=== PATIENT | female | born 1990 | race American Indian/Alaskan Native ===

== ENCOUNTER 2016-06-29 18:01 | Emergency (ER) | payer MEDICAID ==
--- NOTE | 2016-06-29 18:55 | Emergency Department Report ---
Chief Complaint: Abdominal Pain Stated Complaint: STOMACH PAIN Time Seen by Provider: 06/29/16 18:55 - HPI History of Present Illness: 26-year-old female with a history of Crohn's presents c/o sharp, intermittent, non-radiating, abdominal pain x 2 days. Pt. states pain located to LUQ, LLQ, region .The abdominal pain has gradually worsened. Pt. rates the pain as 8/10 at its worst. The pain is not relieved with medication. Pt. admits nausea, vomiting x 3 episodes today Pt. denies fever, chills, chest pain, sob, n/v, abdominal trauma or injury, diarrhea. - ROS Review of Systems: As noted in HPI - Exam Vital Signs: Vital Signs 06/29/16 18:12 Temperature 98.2 F Pulse Rate 74 Respiratory 16 Rate Blood Pressure 124/70 O2 Sat by Pulse 100 Oximetry Physical Exam: GENERAL: Alert and oriented x3, no apparent distress, Normal Gait, atraumatic. LUNGS: Symetrical with respiration, No wheezing, no rales or crackles, CTAB. HEART: S1, S2 present, regular rate and rhythm without murmur, no rubs, no gallops. ABDOMEN: No organomegaly was noted,Positive bowel sounds, soft, and non- distended. . tender to palpation on the left upper and lower quadrant Quadrants , NO CVA tenderness. SKIN: Warm and dry, No lesions, No ulceration or induration present. MSE screening note: Focused history and physical exam performed. Due to findings the following was ordered: ED Medical Decision Making - Lab Data Result diagrams: 06/29/16 19:05 06/29/16 19:05 - Medical Decision Making Abdominal pain protocol ordered. Patient awaiting to see ED physician. ED Disposition for MSE Condition: Stable Instructions: Abdominal Pain (ED)
[2016-06-29 19:45] LABS: Alanine Aminotransferase 18 units/L (7-56); Albumin 4.2 g/dL (3.9-5); Albumin/Globulin Ratio 1.5 %; Alkaline Phosphatase 52 units/L (35-129); Anion Gap 18 mmol/L; Bilirubin,Total 0.3 mg/dL (0.1-1.2); Blood Urea Nitrogen 13 mg/dL (7-17); Calcium 9.2 mg/dL (8.4-10.2); Carbon Dioxide 23 mmol/L (22-30); Chloride 102.1 mmol/L (98-107); Glucose 79 mg/dL (65-100); Lipase 34 units/L (13-60); Sodium 139 mmol/L (137-145)
[2016-06-29 19:47] LABS: Basophils % (Auto) 0.7 % (0.0-1.8); Eosinophils % (Auto) 0.8 % (0.0-4.3); Hematocrit 36.1 % (30.3-42.9); Mean Corpuscular HGB Conc 33 % (30-34); Mean Corpuscular Hemoglobin 29 pg (28-32); Mean Corpuscular Volume 88 fl (79-97); Platelet Count 252 K/mm3 (140-440); Red Blood Count 4.12 M/mm3 (3.65-5.03); Red Cell Distribution Width 13.3 % (13.2-15.2); White Blood Count 7.6 K/mm3 (4.5-11.0)
[2016-06-30] MEDS ORDERED: DILAUDID IV ONE ×2 (01:33→05:18)
[2016-06-30] MEDS ORDERED: ZOFRAN IV ONE ×2 (01:33→05:18)
[2016-06-30 01:35] LABS: Bilirubin,Urine NEG (Negative); Blood,Urine MOD (Negative); Ketones,Urine NEG (Negative); Leukocyte Esterase,Urine NEG (Negative); Mucus,Urine FEW /HPF; Nitrite,Urine NEG (Negative); Protein,Urine <15 mg/dL mg/dL (Negative); Urobilinogen,Urine < 2.0 mg/dL (<2.0); WBC,Urine < 1.0 /HPF (0.0-6.0)
[2016-06-30 01:37] LABS: RBC,Urine < 1.0 /HPF (0.0-6.0)
[2016-06-30] MEDS ORDERED: D5NS 1,000 ML IV SCH (02:00)
[2016-06-30] MEDS ORDERED: BENADRYL IV ONE ×2 (02:10→05:18)
[2016-06-30] MEDS ORDERED: BENTYL IM ONE (03:29)
--- NOTE | 2016-06-30 03:29 | Emergency Department Report ---
ED Abdominal Pain HPI - General Chief Complaint: Abdominal Pain Stated Complaint: STOMACH PAIN Time Seen by Provider: 06/30/16 01:14 Source: family Mode of arrival: Wheelchair Limitations: No Limitations - History of Present Illness Initial Comments: 26-year-old female with a past medical history of asthma and Crohn's disease with surgical history tubal ligation presents to the hospital complaints of abdominal pain, nausea vomiting and by mouth intolerance. Patient symptoms 1 day. Patient complains of upper and left upper quadrant abdominal pain with a fist in intensity, cramping, constant, worse with palpation. No alleviating factors. Patient states she has been vomiting throughout the day and unable to tolerate anything by mouth. Patient Zofran earlier without improvement. She also has oxycodone at home. No reports of fever however, patient states she is having bloody mucus rectal output with only a mild amount of stool. Patient is not currently on any Crohn specific medication since it was discontinued by her initial GI MD Dr. Mcarthur. 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 Her first appointment is first week of July. Severity scale (0 -10): 10 - Related Data Previous Rx's Medication Instructions Recorded Last Taken Type Acetaminophen/Codeine [Tylenol #3] 1 tab PO Q6H PRN #12 tab 03/04/13 Unknown Rx Nitrofurantoin [place]/M-Cryst 100 mg PO Q12HR #14 capsule 03/04/13 Unknown Rx [Macrobid] HYDROcodone/APAP 7.5-325 [[place] 1 each PO Q8HR PRN #12 tablet 03/22/15 Unknown Rx 7.5/325] HYDROcodone/APAP 5-325 [[place] 1 each PO Q6HR PRN #14 tablet 01/25/16 Unknown Rx 5/325] metroNIDAZOLE [Flagyl] 500 mg PO Q8HR #20 tablet 01/25/16 Unknown Rx predniSONE [Deltasone] 10 mg PO QDAY #7 tab 01/25/16 Unknown Rx Dicyclomine [Bentyl] 20 mg PO QID #20 tablet 06/30/16 Unknown Rx Ondansetron [Zofran ODT TAB] 4 mg PO Q8HR #20 tab.rapdis 06/30/16 Unknown Rx oxyCODONE /ACETAMINOPHEN [Percocet 1 tab PO Q6HR PRN #20 tablet 06/30/16 Unknown Rx 5/325 mg] Allergies Allergy/AdvReac Type Severity Reaction Status Date / Time levofloxacin [From Levaquin] Allergy Rash Verified 03/22/15 15:49 morphine Allergy Rash Verified 03/22/15 15:49 ED Review of Systems ROS: Stated complaint: STOMACH PAIN Other details as noted in HPI Comment: All other systems reviewed and negative Other: Constitutional: No fevers chills Eyes: No eye pain visual changes ENT: No ear pain or throat pain Neck: Denies pain Respiratory: Denies cough wheezing shortness of breath Cardiovascular: Denies chest pain, palpitations, syncope GI: As per HPI : Denies dysuria Musculoskeletal: Denies back pain, joint swelling Skin: Denies rash, lesions, erythema Neurologic: Denies headache, numbness, weakness Psychiatric: Denies suicidal ideation, hallucinations ED Past Medical Hx - Past Medical History Hx Hypertension: No Hx Diabetes: No Hx Deep Vein Thrombosis: No Hx Renal Disease: No Hx Sickle Cell Disease: Yes Hx Seizures: No Hx Asthma: Yes (last since child [place], reports hx of bronchitis) Hx HIV: No Additional medical history: crohns - Surgical History Past Surgical History?: Yes Additional Surgical History: tubal ligation in September 2014 - Social History Smoking Status: Never Smoker Substance Use Type: None - Medications Home Medications: Home Medications Medication Instructions Recorded Confirmed Last Taken Type Acetaminophen/Codeine [Tylenol #3] 1 tab PO Q6H PRN #12 tab 03/04/13 08/07/13 Unknown Rx Nitrofurantoin [place]/M-Cryst 100 mg PO Q12HR #14 capsule 03/04/13 08/07/13 Unknown Rx [Macrobid] HYDROcodone/APAP 7.5-325 [[place] 1 each PO Q8HR PRN #12 tablet 03/22/15 Unknown Rx 7.5/325] HYDROcodone/APAP 5-325 [[place] 1 each PO Q6HR PRN #14 tablet 01/25/16 Unknown Rx 5/325] metroNIDAZOLE [Flagyl] 500 mg PO Q8HR #20 tablet 01/25/16 Unknown Rx predniSONE [Deltasone] 10 mg PO QDAY #7 tab 01/25/16 Unknown Rx Dicyclomine [Bentyl] 20 mg PO QID #20 tablet 06/30/16 Unknown Rx Ondansetron [Zofran ODT TAB] 4 mg PO Q8HR #20 tab.rapdis 06/30/16 Unknown Rx oxyCODONE /ACETAMINOPHEN [Percocet 1 tab PO Q6HR PRN #20 tablet 06/30/16 Unknown Rx 5/325 mg] ED Physical Exam - General Limitations: No Limitations - Other Other exam information: General: No limitations, patient is alert in no acute distress Head exam: Atraumatic, normocephalic Eyes exam: Normal appearance, pupils equal reactive to light, extraocular movements intact ENT: Moist mucous membrane, normal oropharynx Neck exam: Normal inspection, full range of motion, no meningismus nontender Respiratory exam: Clear to auscultation bilateral, no wheezes, rales, crackles Cardiovascular: Normal rate and rhythm, normal heart sounds Abdomen: Soft, nondistended, epigastric and left upper quadrant tenderness. No rebound or guarding Extremity: Full range of motion normal inspection no deformity Back: Normal Inspection, full range of motion, no tenderness Neurologic: Alert, oriented x3, cranial nerves intact, no motor or sensory deficit Psychiatric: normal affect, normal mood Skin: Warm, dry, intact ED Course Vital Signs 06/29/16 06/29/16 06/30/16 18:12 23:00 01:09 Temperature 98.2 F 98.2 F 98.3 F Pulse Rate 74 79 80 Respiratory 16 18 18 Rate Blood Pressure 124/70 140/87 Blood Pressure 114/83 [Right] O2 Sat by Pulse 100 100 100 Oximetry 06/30/16 02:00 Temperature Pulse Rate Respiratory 16 Rate Blood Pressure Blood Pressure [Right] O2 Sat by Pulse 100 Oximetry - Reevaluation(s) Reevaluation #1: 06/30/16 05:12 sx improved with Dilaudid, zofran, ns - Consultations Consultation #1: 06/30/16 05:12 case d/w Dr Esteban. no steroids rec at this time. Rec f/u with her gi for further management ED Medical Decision Making - Lab Data Result diagrams: 06/29/16 19:05 06/29/16 19:05 Lab Results 06/29/16 06/29/16 06/29/16 Range/Units 19:05 19:05 19:05 WBC 7.6 (4.5-11.0) K/mm3 RBC 4.12 (3.65-5.03) M/mm3 Hgb 12.0 (10.1-14.3) gm/dl Hct 36.1 (30.3-42.9) % MCV 88 (79-97) fl MCH 29 (28-32) pg MCHC 33 (30-34) % RDW 13.3 (13.2-15.2) % Plt Count 252 (140-440) K/mm3 Lymph % (Auto) 16.6 (13.4-35.0) % [place] % (Auto) 7.6 H (0.0-7.3) % Eos % (Auto) 0.8 (0.0-4.3) % Baso % (Auto) 0.7 (0.0-1.8) % Lymph # 1.3 (1.2-5.4) K/mm3 [place] # 0.6 (0.0-0.8) K/mm3 Eos # 0.1 (0.0-0.4) K/mm3 Baso # 0.1 (0.0-0.1) K/mm3 Seg Neutrophils % 74.3 H (40.0-70.0) % Seg Neutrophils # 5.7 (1.8-7.7) K/mm3 Sodium 139 (137-145) mmol/L Potassium 4.0 (3.6-5.0) mmol/L Chloride 102.1 (98-107) mmol/L Carbon Dioxide 23 (22-30) mmol/L Anion Gap 18 mmol/L BUN 13 (7-17) mg/dL Creatinine 0.5 L (0.7-1.2) mg/dL Estimated GFR > 60 ml/min BUN/Creatinine Ratio 26.00 % Glucose 79 (65-100) mg/dL Calcium 9.2 (8.4-10.2) mg/dL Total Bilirubin 0.3 (0.1-1.2) mg/dL AST 22 (5-40) units/L ALT 18 (7-56) units/L Alkaline Phosphatase 52 (35-129) units/L Total Protein 7.0 (6.3-8.2) g/dL Albumin 4.2 (3.9-5) g/dL Albumin/Globulin Ratio 1.5 % Lipase 34 (13-60) units/L HCG, Qual Negative (Negative) Urine Color (Yellow) Urine Turbidity (Clear) Urine pH (5.0-7.0) Ur Specific [place] (1.003-1.030) Urine Protein (Negative) mg/dL Urine Glucose (UA) (Negative) mg/dL Urine Ketones (Negative) mg/dL Urine Blood (Negative) Urine Nitrite (Negative) Urine Bilirubin (Negative) Urine Urobilinogen (<2.0) mg/dL Ur Leukocyte Esterase (Negative) Urine WBC (Auto) (0.0-6.0) /HPF Urine RBC (Auto) (0.0-6.0) /HPF U Epithel Cells (Auto) (0-13.0) /HPF Urine Mucus /HPF 06/30/16 Range/Units 01:13 WBC (4.5-11.0) K/mm3 RBC (3.65-5.03) M/mm3 Hgb (10.1-14.3) gm/dl Hct (30.3-42.9) % MCV (79-97) fl MCH (28-32) pg MCHC (30-34) % RDW (13.2-15.2) % Plt Count (140-440) K/mm3 Lymph % (Auto) (13.4-35.0) % [place] % (Auto) (0.0-7.3) % Eos % (Auto) (0.0-4.3) % Baso % (Auto) (0.0-1.8) % Lymph # (1.2-5.4) K/mm3 [place] # (0.0-0.8) K/mm3 Eos # (0.0-0.4) K/mm3 Baso # (0.0-0.1) K/mm3 Seg Neutrophils % (40.0-70.0) % Seg Neutrophils # (1.8-7.7) K/mm3 Sodium (137-145) mmol/L Potassium (3.6-5.0) mmol/L Chloride (98-107) mmol/L Carbon Dioxide (22-30) mmol/L Anion Gap mmol/L BUN (7-17) mg/dL Creatinine (0.7-1.2) mg/dL Estimated GFR ml/min BUN/Creatinine Ratio % Glucose (65-100) mg/dL Calcium (8.4-10.2) mg/dL Total Bilirubin (0.1-1.2) mg/dL AST (5-40) units/L ALT (7-56) units/L Alkaline Phosphatase (35-129) units/L Total Protein (6.3-8.2) g/dL Albumin (3.9-5) g/dL Albumin/Globulin Ratio % Lipase (13-60) units/L HCG, Qual (Negative) Urine Color Straw (Yellow) Urine Turbidity Clear (Clear) Urine pH 7.0 (5.0-7.0) Ur Specific [place] 1.008 (1.003-1.030) Urine Protein <15 mg/dl (Negative) mg/dL Urine Glucose (UA) Neg (Negative) mg/dL Urine Ketones Neg (Negative) mg/dL Urine Blood Mod (Negative) Urine Nitrite Neg (Negative) Urine Bilirubin Neg (Negative) Urine Urobilinogen < 2.0 (<2.0) mg/dL Ur Leukocyte Esterase Neg (Negative) Urine WBC (Auto) < 1.0 (0.0-6.0) /HPF Urine RBC (Auto) < 1.0 (0.0-6.0) /HPF U Epithel Cells (Auto) 1.0 (0-13.0) /HPF Urine Mucus Few /HPF - Medical Decision Making Patient's lab work is unremarkable symptoms appear to be secondary to acute Crohn's exacerbation. Patient treated with Dilaudid, Zofran, and IV fluids in the ED with improvement. 2nd round of meds given prior to d/c - Differential Diagnosis chronic pain, Crohn's flare, gastroenteritis, appendicitis, diverticulitis Critical Care Time: No Critical care attestation.: If time is entered above; I have spent that time in minutes in the direct care of this critically ill patient, excluding procedure time. ED Disposition Clinical Impression: Exacerbation of Crohn's disease Qualifiers: Digestive disease complication type: unspecified complication Qualified Code(s) : K50.919 - Crohn's disease, unspecified, with unspecified complications Disposition: DISCHARGED TO HOME OR SELFCARE Is pt being admited?: No Does the pt Need Aspirin: No Condition: Stable Instructions: Acute Nausea and Vomiting (ED), Abdominal Pain (ED) Additional Instructions: Take the medication as prescribed. Follow-up with your GI doctor as soon as possible. 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
[2016-06-30 07:10] VITALS: BP 118/76
== END 2016-06-30 06:30 | disposition home or self-care (01) ==
LOC: ED 18:01
DX: K50.919 Crohn's disease, unspecified, with unspecified complications (principal); J45.909 Unspecified asthma, uncomplicated; Z88.1 Allergy status to other antibiotic agents; Z88.6 Allergy status to analgesic agent
CPT/HCPCS: 36415; 80053; 81001; 83690; 84703; 85025; 96361; 96372; 96374; 96375; 96376; 99283; J0500; J1170; J1200; J2405; J7042

== ENCOUNTER 2016-08-28 00:31 | Inpatient (IN) | payer MEDICAID ==
[2016-08-28] MEDS ORDERED: NACL 0.9% 1000 ML 1,000 ML IV ONE ×2 (02:00→10:59)
[2016-08-28] MEDS ORDERED: DILAUDID IV ONE ×2 (02:04→10:58)
[2016-08-28] MEDS ORDERED: ZOFRAN IV ONE (02:04)
[2016-08-28 02:30] LABS: Basophils % (Auto) 1.3 % (0.0-1.8); Eosinophils % (Auto) 3.1 % (0.0-4.3); Hematocrit 32.7 % (30.3-42.9); Hemoglobin 10.8 gm/dl (10.1-14.3); Mean Corpuscular HGB Conc 33 % (30-34); Mean Corpuscular Hemoglobin 29 pg (28-32); Mean Corpuscular Volume 87 fl (79-97); Platelet Count 435 K/mm3 (140-440); Red Blood Count 3.78 M/mm3 (3.65-5.03); Red Cell Distribution Width 14.4 % (13.2-15.2); White Blood Count 8.3 K/mm3 (4.5-11.0)
[2016-08-28 02:53] LABS: Alanine Aminotransferase 13 units/L (7-56); Albumin 3.7 g/dL (3.9-5); Albumin/Globulin Ratio 1.3 %; Alkaline Phosphatase 70 units/L (35-129); Anion Gap 18 mmol/L; BUN/Creatinine Ratio 8.33; Bilirubin,Total 0.2 mg/dL (0.1-1.2); Blood Urea Nitrogen 5 mg/dL (7-17); Calcium 9.2 mg/dL (8.4-10.2); Carbon Dioxide 26 mmol/L (22-30); Chloride 103.2 mmol/L (98-107); Glucose 84 mg/dL (65-100); Lipase 187 units/L (13-60); Potassium 3.6 mmol/L (3.6-5.0); Sodium 144 mmol/L (137-145); Total Protein 6.5 g/dL (6.3-8.2)
[2016-08-28 03:10] LABS: INR 0.89 (0.87-1.13)
[2016-08-28 03:11] LABS: Partial Thromboplastin Time 26.3 Sec. (24.2-36.6)
[2016-08-28] MEDS ORDERED: REGLAN ONE (03:45)
[2016-08-28] MEDS ORDERED: REGLAN IV ONE (03:45)
--- NOTE | 2016-08-28 10:16 | Emergency Department Report ---
ED GI Bleed HPI - General Chief complaint: GI Bleed Stated complaint: VOMITING BLOOD/WEAK/ABD PAIN Time Seen by Provider: 08/28/16 10:13 Source: patient Mode of arrival: Ambulatory Limitations: No Limitations - History of Present Illness Initial comments: She states that she was admitted for approximately 10 days having been discharged on 08/21/2016 from [facility]. She states that at that time endoscopy confirm the presence of an esophageal carcinoma. She tells me that she was told that she had a "esophageal tumor" in May 2016. However the diagnosis was not made until her last hospitalization [facility]. She states that she has a specialized ultrasound scheduled at [facility] in about a week or 2 which must be performed prior to surgery. She has not had surgery scheduled. She has not had chemotherapy scheduled. We do not have any records of her esophageal biopsy here. She has had multiple visits to this facility for Crohn's disease. It would appear that she does have chronic pain issues. However, she presents to the emergency department today because she states she has thrown up blood 3 times since 10 PM last night. She states that she has not yet had a bowel movement. She complains of chronic subxiphoid pain. She states that she has had this for quite some time and in retrospect she now knows it is due to her esophageal carcinoma. She does not complain of fever or chills. The vomiting was bright red and not streaks. There weren't any large clots. History does imply that she did not have any coffee ground emesis per se per what she is describing. MD complaint: gross hematemesis -: hour(s) Location: epigastric (and subxiphoid and sub-xyphoidal) Radiation: none Quality: sharp Consistency: intermittent Improves with: none Worsens with: none Context: history of GI bleed (states esophageal CA) Associated Symptoms: denies other symptoms - Related Data Home Medications Medication Instructions Recorded Confirmed Last Taken Metoclopramide [Reglan] 10 mg PO TID PRN 08/28/16 08/28/16 Unknown Oxycodone HCl [Roxicodone] 10 mg PO Q6H PRN 08/28/16 08/28/16 Unknown amLODIPine [Norvasc] mg PO DAILY 08/28/16 08/27/16 azaTHIOprine 25 mg PO BID 08/28/16 08/28/16 Unknown fentaNYL [Duragesic] 75 mcg TD Q48H 08/28/16 08/28/16 08/27/16 Allergies Allergy/AdvReac Type Severity Reaction Status Date / Time levofloxacin [From Levaquin] Allergy Rash Verified 03/22/15 15:49 morphine Allergy Rash Verified 03/22/15 15:49 ED Review of Systems ROS: Stated complaint: VOMITING BLOOD/WEAK/ABD PAIN Other details as noted in HPI Constitutional: denies: chills, fever Eyes: denies: eye pain, eye discharge, vision change ENT: denies: ear pain, throat pain Respiratory: denies: cough, shortness of breath, wheezing Cardiovascular: as per HPI, chest pain. denies: palpitations Endocrine: no symptoms reported Gastrointestinal: as per HPI, abdominal pain. denies: nausea, diarrhea Genitourinary: denies: urgency, dysuria, discharge Musculoskeletal: denies: back pain, joint swelling, arthralgia Skin: denies: rash, lesions Neurological: denies: headache, weakness, paresthesias Psychiatric: denies: anxiety, depression Hematological/Lymphatic: denies: easy bleeding, easy bruising ED Past Medical Hx - Past Medical History Previous Medical History?: Yes Hx Hypertension: No Hx Diabetes: No Hx Deep Vein Thrombosis: No Hx Renal Disease: No Hx Sickle Cell Disease: Yes Hx Seizures: No Hx Asthma: Yes (last since child [place], reports hx of bronchitis) Hx HIV: No Additional medical history: crohns - Surgical History Past Surgical History?: Yes Additional Surgical History: tubal ligation in September 2014 - Social History Smoking Status: Never Smoker Substance Use Type: None - Medications Home Medications: Home Medications Medication Instructions Recorded Confirmed Last Taken Type Metoclopramide [Reglan] 10 mg PO TID PRN 08/28/16 08/28/16 Unknown History Oxycodone HCl [Roxicodone] 10 mg PO Q6H PRN 08/28/16 08/28/16 Unknown History amLODIPine [Norvasc] mg PO DAILY 08/28/16 08/27/16 History azaTHIOprine 25 mg PO BID 08/28/16 08/28/16 Unknown History fentaNYL [Duragesic] 75 mcg TD Q48H 08/28/16 08/28/16 08/27/16 History ED Physical Exam - General Limitations: No Limitations General appearance: alert, in no apparent distress - Head Head exam: Present: atraumatic, normocephalic - Eye Eye exam: Present: normal appearance. Absent: scleral icterus - ENT ENT exam: Present: normal exam, mucous membranes moist - Neck Neck exam: Present: normal inspection - Respiratory Respiratory exam: Present: normal lung sounds bilaterally. Absent: respiratory distress - Cardiovascular Cardiovascular Exam: Present: regular rate, normal rhythm. Absent: systolic murmur, diastolic murmur, rubs, gallop - GI/Abdominal GI/Abdominal exam: Present: soft, tenderness (some epigastric tenderness noted) , normal bowel sounds. Absent: distended, guarding, rebound, rigid, organomegaly, mass, bruit, pulsatile mass, hernia - Extremities Exam Extremities exam: Present: normal inspection - Back Exam Back exam: Present: normal inspection - Neurological Exam Neurological exam: Present: alert, oriented X3, CN II-XII intact. Absent: motor sensory deficit - Psychiatric Psychiatric exam: Present: normal affect, normal mood - Skin Skin exam: Present: warm, dry, intact, normal color. Absent: rash ED Course Vital Signs 08/28/16 08/28/16 08/28/16 01:16 04:00 04:30 Temperature 98.7 F Pulse Rate 92 H Respiratory 18 18 18 Rate Blood Pressure 141/95 Blood Pressure [Left] O2 Sat by Pulse 100 Oximetry 08/28/16 08/28/16 08/28/16 07:17 07:44 07:55 Temperature 98 F Pulse Rate 76 87 55 L Respiratory 18 18 13 Rate Blood Pressure 144/90 Blood Pressure 152/93 134/91 [Left] O2 Sat by Pulse 100 97 99 Oximetry 08/28/16 08/28/16 08/28/16 08:00 08:10 08:20 Temperature Pulse Rate 67 57 L 70 Respiratory 14 14 15 Rate Blood Pressure 127/94 127/94 127/94 Blood Pressure [Left] O2 Sat by Pulse 100 99 100 Oximetry 08/28/16 08/28/16 08/28/16 08:30 08:40 08:50 Temperature Pulse Rate 76 66 67 Respiratory 22 16 14 Rate Blood Pressure 127/94 127/94 127/94 Blood Pressure [Left] O2 Sat by Pulse 100 100 100 Oximetry 08/28/16 08/28/16 08/28/16 09:00 09:10 09:20 Temperature Pulse Rate 67 61 72 Respiratory 12 16 12 Rate Blood Pressure 134/87 134/87 134/87 Blood Pressure [Left] O2 Sat by Pulse 100 100 100 Oximetry 08/28/16 08/28/16 08/28/16 09:30 09:40 09:50 Temperature Pulse Rate 66 59 L 56 L Respiratory 14 13 15 Rate Blood Pressure 134/87 134/87 134/87 Blood Pressure [Left] O2 Sat by Pulse 100 99 100 Oximetry 08/28/16 08/28/16 08/28/16 10:00 10:04 10:06 Temperature Pulse Rate 62 59 L 68 Respiratory 16 16 18 Rate Blood Pressure 154/107 154/107 154/107 Blood Pressure [Left] O2 Sat by Pulse 99 97 Oximetry 08/28/16 08/28/16 08/28/16 10:08 10:10 10:12 Temperature Pulse Rate 57 L 61 59 L Respiratory 15 14 12 Rate Blood Pressure 154/107 154/107 154/107 Blood Pressure [Left] O2 Sat by Pulse 94 96 100 Oximetry 08/28/16 08/28/16 08/28/16 10:14 10:16 10:20 Temperature Pulse Rate 58 L 83 Respiratory 13 17 Rate Blood Pressure 154/107 154/107 154/107 Blood Pressure [Left] O2 Sat by Pulse 100 99 84 Oximetry 08/28/16 08/28/16 08/28/16 10:23 10:28 10:33 Temperature Pulse Rate Respiratory Rate Blood Pressure 154/107 154/107 154/107 Blood Pressure [Left] O2 Sat by Pulse 78 L Oximetry 08/28/16 08/28/16 08/28/16 10:36 10:38 10:42 Temperature Pulse Rate Respiratory Rate Blood Pressure 154/107 154/107 154/107 Blood Pressure [Left] O2 Sat by Pulse 78 L 74 L 91 Oximetry 08/28/16 08/28/16 08/28/16 10:45 10:46 10:50 Temperature Pulse Rate Respiratory Rate Blood Pressure 154/107 154/107 154/107 Blood Pressure [Left] O2 Sat by Pulse 94 100 100 Oximetry 08/28/16 08/28/16 08/28/16 10:52 10:55 11:01 Temperature Pulse Rate Respiratory Rate Blood Pressure 154/107 154/107 154/107 Blood Pressure [Left] O2 Sat by Pulse 87 73 L Oximetry 08/28/16 08/28/1617 11:02 11:05 11:07 Temperature Pulse Rate Respiratory Rate Blood Pressure 154/107 154/107 154/107 Blood Pressure [Left] O2 Sat by Pulse 100 46 L Oximetry 08/28/16 08/28/16 08/28/16 11:11 11:12 11:14 Temperature Pulse Rate Respiratory Rate Blood Pressure 154/107 154/107 154/107 Blood Pressure [Left] O2 Sat by Pulse 85 94 86 Oximetry 08/28/16 08/28/16 08/28/16 11:16 11:19 11:20 Temperature Pulse Rate Respiratory 9 L 9 L Rate Blood Pressure 154/107 145/103 145/103 Blood Pressure [Left] O2 Sat by Pulse 91 100 100 Oximetry 08/28/16 08/28/16 08/28/16 11:22 11:24 11:26 Temperature Pulse Rate 74 92 H 77 Respiratory 10 L 12 11 L Rate Blood Pressure 145/103 145/103 145/103 Blood Pressure [Left] O2 Sat by Pulse 100 100 100 Oximetry 08/28/16 12:01 Temperature Pulse Rate Respiratory 20 Rate Blood Pressure Blood Pressure [Left] O2 Sat by Pulse Oximetry ED Medical Decision Making - Lab Data Result diagrams: 08/28/16 02:13 08/28/16 02:13 Laboratory Results - last 24 hr 08/28/16 08/28/16 08/28/16 02:13 02:13 02:13 WBC 8.3 RBC 3.78 Hgb 10.8 Hct 32.7 MCV 87 MCH 29 MCHC 33 RDW 14.4 Plt Count 435 Lymph % (Auto) 28.3 [place] % (Auto) 10.0 H Eos % (Auto) 3.1 Baso % (Auto) 1.3 Lymph # 2.4 [place] # 0.8 Eos # 0.3 Baso # 0.1 Seg Neutrophils % 57.3 Seg Neutrophils # 4.8 PT 11.9 L INR 0.89 APTT 26.3 Sodium 144 Potassium 3.6 Chloride 103.2 Carbon Dioxide 26 Anion Gap 18 BUN 5 L Creatinine 0.6 L Estimated GFR > 60 BUN/Creatinine Ratio 8.33 Glucose 84 Calcium 9.2 Total Bilirubin 0.2 AST 16 ALT 13 Alkaline Phosphatase 70 Total Protein 6.5 Albumin 3.7 L Albumin/Globulin Ratio 1.3 Lipase 187 H Blood Type Antibody Screen 08/28/16 02:13 WBC RBC Hgb Hct MCV MCH MCHC RDW Plt Count Lymph % (Auto) [place] % (Auto) Eos % (Auto) Baso % (Auto) Lymph # [place] # Eos # Baso # Seg Neutrophils % Seg Neutrophils # PT INR APTT Sodium Potassium Chloride Carbon Dioxide Anion Gap BUN Creatinine Estimated GFR BUN/Creatinine Ratio Glucose Calcium Total Bilirubin AST ALT Alkaline Phosphatase Total Protein Albumin Albumin/Globulin Ratio Lipase Blood Type A POSITIVE Antibody Screen Negative - EKG Data -: EKG Interpreted by Me EKG shows normal: sinus rhythm, axis, intervals, QRS complexes, ST-T waves Rate: normal - EKG Data Interpretation: no acute changes - Radiology Data Radiology results: report reviewed interpreted by me: Chest x-ray shows no acute process. - Medical Decision Making Obviously review the patient's past medical records from outside facility would be of benefit. She is admitted by Dr. Martinez to the hospitalist service for her history of hematemesis 3 since last night. She has however clinically stable. Critical care attestation.: If time is entered above; I have spent that time in minutes in the direct care of this critically ill patient, excluding procedure time. ED Disposition Clinical Impression: Upper GI bleeding Abdominal pain Qualifiers: Abdominal location: unspecified location Qualified Code(s): R10.9 - Unspecified abdominal pain Disposition: OP ADMITTED IP TO THIS HOSP Is pt being admited?: Yes Does the pt Need Aspirin: No Condition: Stable Referrals: PRIMARY CARE, [Primary Care Provider] - 3-5 Days Forms: Accompanied Note Time of Disposition: 13:54
[2016-08-28] MEDS ORDERED: BENADRYL IV ONE (10:59)
[2016-08-28] MEDS ORDERED: PROTONIX IV ONE (10:59)
--- NOTE | 2016-08-28 11:55 | XRay Report ---
AP CHEST: HISTORY: Hypertension AP view of the chest demonstrates a normal mediastinal and cardiac contour with clear lungs and normal bony and soft tissue structures. IMPRESSION: Unremarkable AP chest.
--- NOTE | 2016-08-28 12:40 | History and Physical Report ---
History of Present Illness Date of examination: 08/28/16 Chief complaint: It hurts when i swallow, and i been coughing up blood History of present illness: 26 YO Female with SSC, Crohns Disease, Esophageal Carcinoma diagnosed in 2016, presents to ED for evaluation. Pt states that she has experienced pain with swallowing for the past 10 days, and that she has had four episodes of hematemesis over the past 2 days. Pt denies fever, chills, CP, palpitations, shortness of breath, NVD, syncope, BRBPR. Pt states that she has had these symptoms for quite some time and in retrospect she now knows it is due to her esophageal carcinoma. Pt denies unintentional weight loss, night sweats, bone pain, prolonged travel/immobility, individual/family history of DVT/PE, productive cough, syncope. Past History Past Medical History: cancer Past Surgical History: Other (tubal ligation) Social history: single, lives with family. denies: smoking, alcohol abuse, prescription drug abuse Family history: hypertension Medications and Allergies Allergies Allergy/AdvReac Type Severity Reaction Status Date / Time levofloxacin [From Levaquin] Allergy Rash Verified 03/22/15 15:49 morphine Allergy Rash Verified 03/22/15 15:49 Home Medications Medication Instructions Recorded Confirmed Last Taken Type Metoclopramide [Reglan] 10 mg PO TID PRN 08/28/16 08/28/16 Unknown History Oxycodone HCl [Roxicodone] 10 mg PO Q6H PRN 08/28/16 08/28/16 Unknown History amLODIPine [Norvasc] mg PO DAILY 08/28/16 08/27/16 History azaTHIOprine 25 mg PO BID 08/28/16 08/28/16 Unknown History fentaNYL [Duragesic] 75 mcg TD Q48H 08/28/16 08/28/16 08/27/16 History Active Meds: Active Medications Sodium Chloride (Nacl 0.9% 1000 Ml) 1,000 mls @ 125 mls/hr IV ONCE ONE Stop: 08/28/16 18:58 Last Admin: 08/28/16 11:31 Dose: 125 mls/hr Review of Systems All systems: negative Gastrointestinal: hematemesis Exam - Constitutional Vitals: Temp Pulse Resp BP Pulse Ox 98 F 77 11 L 145/103 100 08/28/16 07:17 08/28/16 11:26 08/28/16 11:26 08/28/16 11:26 08/28/16 11:26 General appearance: Present: cachectic - EENT Eyes: Present: PERRL ENT: hearing intact, clear oral mucosa - Neck Neck: Present: supple, normal ROM - Respiratory Respiratory effort: normal Respiratory: bilateral: CTA - Cardiovascular Heart Sounds: Present: S1 & S2. Absent: rub, click - Extremities Extremities: pulses symmetrical, No edema Peripheral Pulses: within normal limits - Abdominal General gastrointestinal: Present: soft, non-tender, non-distended, normal bowel sounds Female genitourinary: Present: normal - Integumentary Integumentary: Present: clear, warm, dry - Musculoskeletal Musculoskeletal: gait normal, strength equal bilaterally - Psychiatric Psychiatric: appropriate mood/affect, intact judgment & insight - Neurologic Neurologic: CNII-XII intact, moves all extremities Results - Labs CBC & Chem 7: 08/28/16 02:13 08/28/16 02:13 Labs: Abnormal lab results 08/28/16 08/28/16 08/28/16 Range/Units 02:13 02:13 02:13 [place] % (Auto) 10.0 H (0.0-7.3) % PT 11.9 L (12.2-14.9) Sec. BUN 5 L (7-17) mg/dL Creatinine 0.6 L (0.7-1.2) mg/dL Albumin 3.7 L (3.9-5) g/dL Lipase 187 H (13-60) units/L Assessment and Plan - Patient Problems (1) Esophageal cancer Current Visit: Yes Status: Acute Qualifiers: Malignant neoplasm of esophagus location: M Plan to address problem: Pain control, records request from [facility]. Request GI notes, HPI, and discharge summary, ultrasound and biopsy results. supportive care. (2) Malnutrition Current Visit: Yes Status: Acute Plan to address problem: encourage oral intake as tolerated. (3) Crohn's disease Current Visit: Yes Status: Acute Qualifiers: Gastrointestinal tract location: G Digestive disease complication type: D Plan to address problem: Pain control, supportiev care, continue home therapy (4) Upper GI bleeding Current Visit: Yes Status: Acute Plan to address problem: Hgb stable, pt had recent GI workup at [facility], pending records request. Pain control, Patient pending surgical resection at [facility]. PPI therapy for GI prophylaxis. No free air in chest, no crepitus. No evidence of esophageal perforation. (5) DVT prophylaxis Current Visit: Yes Status: Acute
--- NOTE | 2016-08-28 13:10 | Admit Criteria Form ---
Admission Criteria Documentation: GASTROINTESTINAL BLEEDING, UPPER Clinical Indications for Admission to Inpatient Care ( Place 'X' for any and all applicable criteria): Admission is indicated for ANY ONE of the following(1)(2)(3)(4)(5)(6): [ ]I. Active bleeding (eg, fresh voluminous blood in emesis or nasogastric aspirate) [X]II. Associated conditions requiring hospitalization (eg, perforation, obstruction from ulcer) [ ]III. Inpatient admission required rather than observation care (Also use Gastrointestinal Bleeding, Upper: Observation Care as appropriate) because of ANY ONE of the following: [ ]a) Hemodynamic instability that is severe or persistent [ ]b) Anemia requiring inpatient admission as indicated by ALL of the following: [ ]1) Presence of significant clinical finding indicated by ANY ONE of the following: [ ]A. Tachycardia for age [ ]B. Orthostatic vital sign changes [ ]C. Cognitive impairment [ ]D. Heart failure [ ]E. Chest pain [ ]F. Exertional dyspnea [ ]G. Other findings suggesting inadequate perfusion (eg, peripheral or myocardial ischemia, end organ dysfunction) [ ]2) Initial (eg, emergency department, observation care) treatment with transfusion or volume replacement is judged inappropriate (due to severity of the finding) or has been ineffective [ ]c) Severe pain requiring acute inpatient management [ ]d) High-risk low platelet count [ ]e) IV fluid to replace significant ongoing losses (greater than 3 L/m2 per day) [ ]f) Immediate inpatient surgery [ ]g) Other condition, treatment or monitoring requiring inpatient admission [ ]IV. Severe liver disease (eg, cirrhosis) [ ]V. Significant active comorbid disease [ ]. Anticoagulation therapy [ ]VII. High-risk endoscopic features (arterial bleeding, adherent clot, nonbleeding visible vessel, varices, flat red spots, ulcer size greater than 2 cm, or portal hypertensive gastropathy) [ ]VIII. Previous aortic graft placement or known aortic aneurysm [ ]IX. Coagulopathy [ ]X. Syncope Extended stay beyond goal length of stay may be needed for(1)(2): [ ]a) Emergency surgery [ ]b) Varices [ ]c) Coagulation abnormalities [ ]d) Recurrent, obscure, or persistent bleeding or continued Hemodynamic instability [ ]e) Associated conditions requiring surgery (eg, perforated gastric ulcer, gastric outlet obstruction) [ ]f) Active comorbidities (eg, renal insufficiency, heart failure, pre- existing liver disease) The original [facility] content created by [facility] has been revised. The portions of the content which have been revised are identified through the use of italic text or in bold, and [facility] has neither reviewed nor approved the modified material. All other unmodified content is copyright [facility] [employer]. Please see references footnoted in the original [facility] edition 2016 Admission Criteria Met: Yes
[2016-08-28] MEDS ORDERED: ZOFRAN IV PRN (13:18)
[2016-08-28] MEDS ORDERED: ROXICODONE PO PRN (13:22)
[2016-08-28] MEDS ORDERED: REGLAN PO PRN (13:22)
[2016-08-28] MEDS ORDERED: NACL 0.45% 1000 ML 1,000 ML IV SCH (14:00)
[2016-08-28] MEDS ORDERED: DURAGESIC TD SCH ×2 (14:00)
[2016-08-28 14:18] VITALS: BP 133/93
[2016-08-28] MEDS ORDERED: IMURAN PO SCH (22:00)
[2016-08-29] MEDS ORDERED: NORVASC PO SCH (10:00)
== END 2016-08-28 17:20 | disposition left against medical advice (07) | DRG 378 ==
LOC: ED 00:31 → 3A 13:18
PROVIDERS: ADMIT Internal Medicine; ATTEND Internal Medicine
DX: K92.2 Gastrointestinal hemorrhage, unspecified (principal); C15.9 Malignant neoplasm of esophagus, unspecified; K50.90 Crohn's disease, unspecified, without complications; E46 Unspecified protein-calorie malnutrition; G89.29 Other chronic pain; J45.909 Unspecified asthma, uncomplicated; Z79.899 Other long term (current) drug therapy; Z88.6 Allergy status to analgesic agent; Z82.49 Family history of ischemic heart disease and other diseases of the circulatory system; Z88.1 Allergy status to other antibiotic agents; Z98.51 Tubal ligation status; Z68.20 Body mass index [BMI] 20.0-20.9, adult
CPT/HCPCS: 36415; 71010; 80053; 83690; 85025; 85610; 85730; 86850; 86900; 86901; 93005; 93010; 96361; 96374; 96375; 96376; C9113; J1170; J1200; J2405; J2765; J7030; J7500

== ENCOUNTER 2016-11-13 14:28 | Inpatient (IN) | payer MEDICAID ==
[2016-11-13] MEDS ORDERED: NACL 0.9% 1000 ML 1,000 ML IV ONE (15:23)
[2016-11-13 15:59] LABS: Eosinophils % (Auto) 3.9 % (0.0-4.3); Hematocrit 36.3 % (30.3-42.9); Hemoglobin 11.7 gm/dl (10.1-14.3); Mean Corpuscular HGB Conc 32 % (30-34); Mean Corpuscular Hemoglobin 28 pg (28-32); Mean Corpuscular Volume 87 fl (79-97); Platelet Count 211 K/mm3 (140-440); Red Blood Count 4.15 M/mm3 (3.65-5.03); Red Cell Distribution Width 13.2 % (13.2-15.2); White Blood Count 4.9 K/mm3 (4.5-11.0)
[2016-11-13 16:10] LABS: INR 0.97 (0.87-1.13)
[2016-11-13 16:14] LABS: Alanine Aminotransferase 12 units/L (7-56); Albumin 4.4 g/dL (3.9-5); Albumin/Globulin Ratio 1.6 %; Alkaline Phosphatase 71 units/L (35-129); Anion Gap 15 mmol/L; BUN/Creatinine Ratio 21.66; Blood Urea Nitrogen 13 mg/dL (7-17); Carbon Dioxide 27 mmol/L (22-30); Chloride 103.1 mmol/L (98-107); Glucose 67 mg/dL (65-100); Lipase 51 units/L (13-60); Sodium 141 mmol/L (137-145); Total Protein 7.2 g/dL (6.3-8.2)
[2016-11-13] MEDS ORDERED: ZOFRAN IV ONE (23:06)
[2016-11-14] MEDS ORDERED: NACL 0.9% 1000 ML 1,000 ML IV ONE (00:06)
[2016-11-14] MEDS ORDERED: DILAUDID IV ONE (00:06)
--- NOTE | 2016-11-14 00:15 | Emergency Department Report ---
ED GI Bleed HPI - General Chief complaint: GI Bleed Stated complaint: VOMITING BLOOD/ABD PAIN/CANCER PT Time Seen by Provider: 11/13/16 23:33 Source: patient Mode of arrival: Ambulatory Limitations: No Limitations - History of Present Illness Initial comments: 26-year-old female presents to the emergency department complaining of coughing up and vomiting blood. Patient states that she began coughing up blood yesterday morning at approximately 10 AM. She began vomiting blood last night at approximately 11 PM. She states she is continuing to spit up some blood. Blood described as dark red. She is also complaining of sharp epigastric abdominal pain. This pain does not radiate. She reports feeling lightheaded, but has not passed out. Patient reports a history of esophageal cancer, and she is currently awaiting surgery for removal of the tumor. She is followed by Dr. Cason, oncology, at [facility]. There are no other complaints. MD complaint: gross hematemesis -: Gradual, days(s) (1) Location: epigastric Radiation: none Severity scale (0 -10): 9 Quality: sharp Consistency: constant Improves with: none Worsens with: none Context: history of GI bleed Associated Symptoms: abdominal pain, nausea, vomiting, other (lightheadedness) - Related Data Home Medications Medication Instructions Recorded Confirmed Last Taken Metoclopramide [Reglan] 10 mg PO TID PRN 08/28/16 08/28/16 Unknown Oxycodone HCl [Roxicodone] 10 mg PO Q6H PRN 08/28/16 08/28/16 Unknown amLODIPine [Norvasc] mg PO DAILY 08/28/16 08/27/16 azaTHIOprine 25 mg PO BID 08/28/16 08/28/16 Unknown fentaNYL [Duragesic] 75 mcg TD Q48H 08/28/16 08/28/16 08/27/16 Allergies Allergy/AdvReac Type Severity Reaction Status Date / Time levofloxacin [From Levaquin] Allergy Rash Verified 03/22/15 15:49 morphine Allergy Rash Verified 03/22/15 15:49 ED Review of Systems ROS: Stated complaint: VOMITING BLOOD/ABD PAIN/CANCER PT Other details as noted in HPI Comment: All other systems reviewed and negative Cardiovascular: syncope (lightheadedness, no loss of consciousness) Gastrointestinal: abdominal pain, nausea, vomiting, diarrhea (watery, no blood) , hematemesis ED Past Medical Hx - Past Medical History Previous Medical History?: Yes Hx Hypertension: No Hx Diabetes: No Hx Deep Vein Thrombosis: No Hx Renal Disease: No Hx of Cancer: Yes (esophageal) Hx Sickle Cell Disease: Yes Hx Seizures: No Hx Asthma: Yes (last since child [place], reports hx of bronchitis) Hx HIV: No Additional medical history: crohns - Surgical History Past Surgical History?: Yes Additional Surgical History: tubal ligation in September 2014 - Family History Family history: no significant - Social History Smoking Status: Former Smoker Substance Use Type: Non Opiate Pain, Prescribed - Medications Home Medications: Home Medications Medication Instructions Recorded Confirmed Last Taken Type Metoclopramide [Reglan] 10 mg PO TID PRN 08/28/16 08/28/16 Unknown History Oxycodone HCl [Roxicodone] 10 mg PO Q6H PRN 08/28/16 08/28/16 Unknown History amLODIPine [Norvasc] mg PO DAILY 08/28/16 08/27/16 History azaTHIOprine 25 mg PO BID 08/28/16 08/28/16 Unknown History fentaNYL [Duragesic] 75 mcg TD Q48H 08/28/16 08/28/16 08/27/16 History ED Physical Exam - General Limitations: No Limitations General appearance: alert, in no apparent distress - Head Head exam: Present: atraumatic, normocephalic - Eye Eye exam: Present: normal appearance, PERRL, EOMI - ENT ENT exam: Present: normal exam, normal orophraynx, mucous membranes moist - Neck Neck exam: Present: normal inspection, full ROM. Absent: tenderness - Respiratory Respiratory exam: Present: normal lung sounds bilaterally. Absent: respiratory distress - Cardiovascular Cardiovascular Exam: Present: regular rate, normal rhythm, normal heart sounds - GI/Abdominal GI/Abdominal exam: Present: soft, tenderness (moderate epigastric tenderness to palpation), guarding (voluntary), normal bowel sounds. Absent: distended, rebound - Extremities Exam Extremities exam: Present: normal inspection, full ROM. Absent: tenderness - Back Exam Back exam: Present: normal inspection, full ROM. Absent: tenderness - Neurological Exam Neurological exam: Present: alert, oriented X3. Absent: motor sensory deficit - Skin Skin exam: Present: warm, dry, intact ED Course Vital Signs 11/13/16 11/13/1611/13/17 15:15 22:17 22:20 Temperature 99.1 F Pulse Rate 71 72 63 Respiratory 20 10 L Rate Blood Pressure 117/74 117/84 O2 Sat by Pulse 100 Oximetry 11/13/16 22:30 Temperature Pulse Rate 61 Respiratory 14 Rate Blood Pressure 117/84 O2 Sat by Pulse Oximetry ED Medical Decision Making - Lab Data Result diagrams: 11/13/16 15:34 11/13/16 15:34 - Radiology Data Radiology results: image reviewed interpreted by me: Chest x-ray shows no acute cardiopulmonary abnormality. There is no air under the diaphragms. There is also no pleural effusions suggestive of esophageal rupture. - Medical Decision Making Lab and imaging results reviewed and discussed with the patient. Attempts have been unsuccessful to contact the patient's oncologist. Transferred to [facility] where her oncologist is located has been offered to the patient, but she states she would rather stay here. Patient was discussed with the hospitalist who is requesting GI consultation. I spoke with Dr. Beckford, GI, who states he will see the patient in the hospital. Obtaining CT of the chest with IV contrast to help evaluate the patient's anatomy. Patient will be admitted following CT scan. - Differential Diagnosis GI bleed, anemia, esophageal cancer Critical care attestation.: If time is entered above; I have spent that time in minutes in the direct care of this critically ill patient, excluding procedure time. ED Disposition Clinical Impression: Hematemesis with nausea Esophageal cancer Qualifiers: Malignant neoplasm of esophagus location: unspecified location Qualified Code(s ): C15.9 - Malignant neoplasm of esophagus, unspecified Disposition: OP ADMIT IP TO THIS HOSP Is pt being admited?: Yes Condition: Stable Referrals: PRIMARY CARE, [Primary Care Provider] - 3-5 Days Forms: Accompanied Note Time of Disposition: 01:38
[2016-11-14] MEDS ORDERED: BENADRYL IV ONE (00:20)
[2016-11-14] MEDS ORDERED: REGLAN ONE ×2 (00:43→05:04)
[2016-11-14] MEDS ORDERED: REGLAN IV ONE (00:44)
[2016-11-14] MEDS ORDERED: DILAUDID IV PRN (01:22)
[2016-11-14] MEDS ORDERED: NACL ONE (02:23)
--- NOTE | 2016-11-14 03:15 | Cat Scan Report ---
FINAL REPORT PROCEDURE: CT CHEST W CON TECHNIQUE: Computerized axial tomography of the chest was performed during the IV injection of iodinated nonionic contrast. HISTORY: vomiting blood, h/o esophageal cancer COMPARISON: No prior studies are available for comparison. TECHNICAL QUALITY: Satisfactory. FINDINGS: Heart and pericardium: Normal. Thoracic aorta: Normal. Pulmonary vasculature: Normal. Lymph nodes: No enlarged thoracic lymph nodes. Lungs: The lungs are clear. The airway is patent.. Pleural space: No effusion, thickening, or pneumothorax. Musculoskeletal structures: No significant abnormality. Upper abdominal structures: The stomach has a normal appearance. The esophagus on this study appears normal.. IMPRESSION: Normal examination
[2016-11-14] MEDS ORDERED: PROTONIX IV ONE ×2 (04:36→04:59)
--- NOTE | 2016-11-14 04:41 | History and Physical Report ---
History of Present Illness Date of examination: 11/14/16 History of present illness: 26-year-old woman with a history of esophageal cancer on azathioprine, Crohn's disease comes emergency room with complaints of 2 days of nausea vomiting. She has been unable tolerate oral intake, she started spitting up blood yesterday and today she had began to vomit blood. No fever, chills, night sweats. She complains of pain in the epigastric area which she describes a sharp pain, constant 2 days, intensity 7/10, no radiation, worse with vomiting Patient denies chest pain, palpitation, shortness of breath, cough, abdominal pain, hematochezia, dysuria, frequency, focal weakness, dysarthria, fever chills , polydipsia polyuria, hot or cold intolerance, easy bruisability, or rash or bleeding from mucosal membrane, rhinorrhea, epistaxis, earache, tinnitus, blurry vision, eye discharge, anxiety, depression. Other review of systems negative PAST SURGICAL HISTORY: Tubal ligation, tonsillectomy SOCIAL HISTORY: Denies alcohol, tobacco, drugs FAMILY HISTORY: Hypertension Medications and Allergies Allergies Allergy/AdvReac Type Severity Reaction Status Date / Time levofloxacin [From Levaquin] Allergy Rash Verified 03/22/15 15:49 morphine Allergy Rash Verified 03/22/15 15:49 ondansetron HCl Allergy Hives Verified 11/14/16 19:45 [From Zofran (as hydrochloride)] Home Medications Medication Instructions Recorded Confirmed Last Taken Type azaTHIOprine 25 mg PO BID 08/28/16 08/28/16 Unknown History Metoclopramide [Reglan TAB] 10 mg PO TID PRN #90 tablet 11/15/16 Unknown Rx Oxycodone HCl [Roxicodone] 10 mg PO Q6H PRN #10 tablet 11/15/16 Unknown Rx Pantoprazole [Protonix] 40 mg PO QDAY #30 tablet 11/15/16 Unknown Rx amLODIPine [Norvasc] 10 mg PO DAILY #30 tablet 11/15/16 Unknown Rx fentaNYL [Duragesic] 75 mcg TD Q48H #2 patch 11/15/16 Unknown Rx Active Meds: Active Medications Hydromorphone HCl (Dilaudid) 1 mg IV Q2H PRN PRN Reason: Pain , Severe (7-10) Last Admin: 11/14/16 02:30 Dose: 1 mg Hydromorphone HCl (Dilaudid) 1 mg IV Q4H PRN PRN Reason: Pain, Moderate (4-6) Sodium Chloride (Nacl 0.9% 1000 Ml) 1,000 mls @ 150 mls/hr IV DIRECT KB Metoclopramide HCl (Reglan) 10 mg IV Q6H PRN PRN Reason: Nausea And Vomiting Ondansetron HCl (Zofran) 4 mg IV Q4H PRN PRN Reason: N/V unrelieved by Reglan Pantoprazole Sodium (Protonix) 40 mg IV BID KB Pantoprazole Sodium (Protonix) 40 mg IV ONCE ONE Stop: 11/14/16 04:37 Exam - Physical Exam Narrative exam: Gen. appearance: Patient lying in bed, no apparent distress HEENT: Normocephalic, atraumatic, pupils equally round and reactive to light, extraocular movement intact, and no sclericterus,. No JVD or thyromegaly or nodule,neck supple, no carotid bruit ,mucous membranes dry, no exudate or erythema Heart: S1, S2, regular rate and rhythm Lungs: Clear to auscultation bilaterally, breathing comfortable Abdomen: Positive bowel sounds, nontender, nondistended, no organomegaly Extremity: No edema, cyanosis, clubbing Skin: No rash, nodules, warm, dry Neuro: Oriented 3, cranial nerves II-12 intact, speech is fluent, motor and sensory intact - Constitutional Vitals: Temp Pulse Resp BP Pulse Ox 99.1 F 51 L 18 112/70 100 11/13/16 15:15 11/14/16 01:50 11/14/16 02:30 11/14/16 01:50 11/14/16 01:50 Results - Labs CBC & Chem 7: 11/15/16 07:33 11/15/16 07:33 Labs: Abnormal lab results 11/13/16 11/13/16 Range/Units 15:34 15:34 Lymph % (Auto) 36.6 H (13.4-35.0) % [place] % (Auto) 9.3 H (0.0-7.3) % Creatinine 0.6 L (0.7-1.2) mg/dL - Imaging and Cardiology CT scan - chest: report reviewed Assessment and Plan GI bleed Esophageal cancer Crohn's disease Admits medicine Start IV fluids, Protonix, first dose now, consult GI Check serial hemoglobin, start antiemetics, IV pain medication DVT prophylaxis with SCD
[2016-11-14] MEDS ORDERED: NACL 0.9% 1000 ML 1,000 ML IV SCH (05:00)
[2016-11-14] MEDS ORDERED: DILAUDID ONE (05:04)
[2016-11-14] MEDS: REGLAN IV PRN (05:08)
[2016-11-14] MEDS: DILAUDID IV PRN ×5 (05:08→21:35)
[2016-11-14 05:16] LABS: Hemoglobin 10.4 gm/dl (10.1-14.3)
--- NOTE | 2016-11-14 07:25 | XRay Report ---
AP CHEST: HISTORY: Chest pain, esophageal cancer AP view of the chest demonstrates a normal mediastinal and cardiac contour with clear lungs and normal bony and soft tissue structures. IMPRESSION: Unremarkable AP chest. No significant change since 08/28/16.
--- NOTE | 2016-11-14 08:39 | Admit Criteria Form ---
Admission Criteria Documentation: GASTROINTESTINAL BLEEDING, UPPER Clinical Indications for Admission to Inpatient Care ( Place 'X' for any and all applicable criteria): Admission is indicated for ANY ONE of the following(1)(2)(3)(4)(5)(6): [ X]I. Active bleeding (eg, fresh voluminous blood in emesis or nasogastric aspirate) [ ]II. Associated conditions requiring hospitalization (eg, perforation, obstruction from ulcer) [ ]III. Inpatient admission required rather than observation care (Also use Gastrointestinal Bleeding, Upper: Observation Care as appropriate) because of ANY ONE of the following: [ ]a) Hemodynamic instability that is severe or persistent [ ]b) Anemia requiring inpatient admission as indicated by ALL of the following: [ ]1) Presence of significant clinical finding indicated by ANY ONE of the following: [ ]A. Tachycardia for age [ ]B. Orthostatic vital sign changes [ ]C. Cognitive impairment [ ]D. Heart failure [ ]E. Chest pain [ ]F. Exertional dyspnea [ ]G. Other findings suggesting inadequate perfusion (eg, peripheral or myocardial ischemia, end organ dysfunction) [ ]2) Initial (eg, emergency department, observation care) treatment with transfusion or volume replacement is judged inappropriate (due to severity of the finding) or has been ineffective [ ]c) Severe pain requiring acute inpatient management [ ]d) High-risk low platelet count [ ]e) IV fluid to replace significant ongoing losses (greater than 3 L/m2 per day) [ ]f) Immediate inpatient surgery [ ]g) Other condition, treatment or monitoring requiring inpatient admission [ ]IV. Severe liver disease (eg, cirrhosis) [ ]V. Significant active comorbid disease [ ]. Anticoagulation therapy [ ]VII. High-risk endoscopic features (arterial bleeding, adherent clot, nonbleeding visible vessel, varices, flat red spots, ulcer size greater than 2 cm, or portal hypertensive gastropathy) [ ]VIII. Previous aortic graft placement or known aortic aneurysm [ ]IX. Coagulopathy [ ]X. Syncope Extended stay beyond goal length of stay may be needed for(1)(2): [ ]a) Emergency surgery [ ]b) Varices [ ]c) Coagulation abnormalities [ ]d) Recurrent, obscure, or persistent bleeding or continued Hemodynamic instability [ ]e) Associated conditions requiring surgery (eg, perforated gastric ulcer, gastric outlet obstruction) [ ]f) Active comorbidities (eg, renal insufficiency, heart failure, pre- existing liver disease) The original [facility] [employer] content created by [facility] has been revised. The portions of the content which have been revised are identified through the use of italic text or in bold, and [facility] has neither reviewed nor approved the modified material. All other unmodified content is copyright [facility] [employer]. Please see references footnoted in the original [facility] [employer] edition 2016 Admission Criteria Met: Yes
[2016-11-14 08:44] LABS: Hematocrit 30.4 % (30.3-42.9); Hemoglobin 10.1 gm/dl (10.1-14.3)
[2016-11-14] MEDS: ZOFRAN IV PRN ×4 (08:57→21:33)
[2016-11-14] MEDS: PROTONIX IV SCH ×2 (09:14→21:33)
--- NOTE | 2016-11-14 09:24 | Gastroenterology Consultation ---
History of Present Illness - Reason for Consult Consult date: 11/14/16 hematemesis Requesting physician: BINDU MOE - History of Present Illness Patient is a 26 y/o female admitted yesterday for hematemesis. She reports N/V began 2 days ago and following multiple episodes of vomiting began to vomit up bright red blood. Her last episode of hematemesis was at 0700 this morning. She also c/o epigastric pain and occasional dizziness. She has a hx of Crohn's disease with frequent diarrhea, but denies hematochezia. She was also dx with esophageal CA 05/2016, no surgery or chemo has been done at this time. She is currently on azathoprine. Denies fever, chills, dysphagia, odynophagia, melena, hematochezia, CP, or SOB. No NSAID use. Past History Past Medical History: cancer (esophageal), hypertension, other (RA, sickle cell disease, crohn's, asthma) Past Surgical History: tonsillectomy, Other (tubal ligation) Social history: , lives with family. denies: smoking, alcohol abuse Family history: hypertension Medications and Allergies Allergies Allergy/AdvReac Type Severity Reaction Status Date / Time levofloxacin [From Levaquin] Allergy Rash Verified 03/22/15 15:49 morphine Allergy Rash Verified 03/22/15 15:49 Home Medications Medication Instructions Recorded Confirmed Last Taken Type Metoclopramide [Reglan] 10 mg PO TID PRN 08/28/16 08/28/16 Unknown History Oxycodone HCl [Roxicodone] 10 mg PO Q6H PRN 08/28/16 08/28/16 Unknown History amLODIPine [Norvasc] mg PO DAILY 08/28/16 08/27/16 History azaTHIOprine 25 mg PO BID 08/28/16 08/28/16 Unknown History fentaNYL [Duragesic] 75 mcg TD Q48H 08/28/16 08/28/16 08/27/16 History Active Meds: Active Medications Hydromorphone HCl (Dilaudid) 1 mg IV Q4H PRN PRN Reason: Pain, Moderate (4-6) Last Admin: 11/14/16 08:57 Dose: 1 mg Sodium Chloride (Nacl 0.9% 1000 Ml) 1,000 mls @ 150 mls/hr IV DIRECT KB Last Admin: 11/14/16 09:09 Dose: 150 mls/hr Metoclopramide HCl (Reglan) 10 mg IV Q6H PRN PRN Reason: Nausea And Vomiting Last Admin: 11/14/16 05:08 Dose: 10 mg Ondansetron HCl (Zofran) 4 mg IV Q4H PRN PRN Reason: N/V unrelieved by Reglan Last Admin: 11/14/16 08:57 Dose: 4 mg Pantoprazole Sodium (Protonix) 40 mg IV BID [facility] Last Admin: 11/14/16 09:14 Dose: 40 mg Review of Systems - Review of Systems All systems: negative Gastrointestinal: abdominal pain (epigastric), nausea, vomiting, hematemesis Exam - Constitutional Vital Signs: Temp Pulse Resp BP Pulse Ox 98 F 49 L 18 99/69 100 11/14/16 08:00 11/14/16 08:00 11/14/16 08:00 11/14/16 08:00 11/14/16 08:00 General appearance: mild distress - EENT Eyes: PERRL, EOM intact ENT: hearing intact - Neck Neck: normal ROM - Respiratory Respiratory: bilateral: CTA - Cardiovascular Rhythm: regular Heart Sounds: Present: S1 & S2 Extremities: No edema - Gastrointestinal General gastrointestinal: Present: soft, tender (epigastric), non-distended, normal bowel sounds - Integumentary Integumentary: Present: warm, dry - Neurologic Neurological: alert and oriented x3 - Psychiatric Psychiatric: appropriate mood/affect, cooperative - Labs CBC & Chem 7: 11/14/16 08:22 11/13/16 15:34 Lab Results: Laboratory Results - last 24 hr 11/14/16 11/14/16 04:51 08:22 Hgb 10.4 10.1 Hct 32.0 30.4 Assessment and Plan 1. hematemesis -most likely due to lani singh tear after multiple episodes of vomiting -hx of esophageal CA -CT of chest- results unremarkable -HGB 10.1- continue to monitor and transfuse as needed -continue PPI -hold blood thinning medications -continue supportive care -Keep NPO -Will schedule for EGD today -will follow
--- NOTE | 2016-11-14 12:11 | Progress Note ---
Assessment and Plan Assessment and plan: Hematemesis. Etiology is likely secondary to Barbara-Kohli tear after multiple episodes of vomiting. Continue PPI. Esophageal cancer. CT scan results of the chest essentially unremarkable. EGD planned for an a.m. Crohn's disease. Acute blood loss anemia. Hemoglobin is stable. Continue to monitor H&H. Hold all anticoagulation. History Interval history: Patient is a 26 y/o female admitted yesterday for hematemesis. She reports N/V began 2 days ago and following multiple episodes of vomiting began to vomit up bright red blood. Her last episode of hematemesis was at 0700 this morning. She also c/o epigastric pain and occasional dizziness. She has a hx of Crohn's disease with frequent diarrhea, but denies hematochezia. She was also dx with esophageal CA 05/2016, no surgery or chemo has been done at this time. She is currently on azathoprine. No new episodes of hematemesis since admission. Hospitalist Physical - Constitutional Vitals: Temp Pulse Resp BP Pulse Ox 98 F 49 L 18 99/69 100 11/14/16 08:00 11/14/16 08:00 11/14/16 08:00 11/14/16 08:00 11/14/16 08:00 General appearance: Present: no acute distress, well-nourished - EENT Eyes: Present: PERRL, EOM intact ENT: hearing intact, clear oral mucosa, dentition normal - Neck Neck: Present: supple, normal ROM - Respiratory Respiratory effort: normal Respiratory: bilateral: CTA - Cardiovascular Rhythm: regular Heart Sounds: Present: S1 & S2. Absent: gallop, rub - Extremities Extremities: no ischemia, No edema, Full ROM - Abdominal General gastrointestinal: soft, non-tender, non-distended, normal bowel sounds - Integumentary Integumentary: Present: clear, warm, dry - Neurologic Neurologic: CNII-XII intact, moves all extremities Results - Labs CBC & Chem 7: 11/14/16 08:22 11/13/16 15:34 Labs: Laboratory Last Values WBC 4.9 K/mm3 (4.5-11.0) 11/13/16 15:34 RBC 4.15 M/mm3 (3.65-5.03) 11/13/16 15:34 Hgb 10.1 gm/dl (10.1-14.3) 11/14/16 08:22 Hct 30.4 % (30.3-42.9) 11/14/16 08:22 MCV 87 fl (79-97) 11/13/16 15:34 MCH 28 pg (28-32) 11/13/16 15:34 MCHC 32 % (30-34) 11/13/16 15:34 RDW 13.2 % (13.2-15.2) 11/13/16 15:34 Plt Count 211 K/mm3 (140-440) 11/13/16 15:34 Lymph % (Auto) 36.6 % (13.4-35.0) H 11/13/16 15:34 [place] % (Auto) 9.3 % (0.0-7.3) H 11/13/16 15:34 Eos % (Auto) 3.9 % (0.0-4.3) 11/13/16 15:34 Baso % (Auto) 1.0 % (0.0-1.8) 11/13/16 15:34 Lymph # 1.8 K/mm3 (1.2-5.4) 11/13/16 15:34 [place] # 0.5 K/mm3 (0.0-0.8) 11/13/16 15:34 Eos # 0.2 K/mm3 (0.0-0.4) 11/13/16 15:34 Baso # 0.1 K/mm3 (0.0-0.1) 11/13/16 15:34 Seg Neutrophils % 49.2 % (40.0-70.0) 11/13/16 15:34 Seg Neutrophils # 2.4 K/mm3 (1.8-7.7) 11/13/16 15:34 PT 12.8 Sec. (12.2-14.9) 11/13/16 15:34 INR 0.97 (0.87-1.13) 11/13/16 15:34 APTT 29.0 Sec. (24.2-36.6) 11/13/16 15:34 Sodium 141 mmol/L (137-145) 11/13/16 15:34 Potassium 4.0 mmol/L (3.6-5.0) 11/13/16 15:34 Chloride 103.1 mmol/L (98-107) 11/13/16 15:34 Carbon Dioxide 27 mmol/L (22-30) 11/13/16 15:34 Anion Gap 15 mmol/L 11/13/16 15:34 BUN 13 mg/dL (7-17) 11/13/16 15:34 Creatinine 0.6 mg/dL (0.7-1.2) L 11/13/16 15:34 Estimated GFR > 60 ml/min 11/13/16 15:34 BUN/Creatinine Ratio 21.66 % 11/13/16 15:34 Glucose 67 mg/dL (65-100) 11/13/16 15:34 Calcium 9.0 mg/dL (8.4-10.2) 11/13/16 15:34 Total Bilirubin 0.20 mg/dL (0.1-1.2) 11/13/16 15:34 AST 16 units/L (5-40) 11/13/16 15:34 ALT 12 units/L (7-56) 11/13/16 15:34 Alkaline Phosphatase 71 units/L (35-129) 11/13/16 15:34 Total Protein 7.2 g/dL (6.3-8.2) 11/13/16 15:34 Albumin 4.4 g/dL (3.9-5) 11/13/16 15:34 Albumin/Globulin Ratio 1.6 % 11/13/16 15:34 Lipase 51 units/L (13-60) 11/13/16 15:34 Blood Type A POSITIVE 11/13/16 15:34 Antibody Screen TNR 11/13/16 15:34 MAGDALENO Antibody Screen Negative 11/13/16 15:34
[2016-11-14] MEDS: NACL 0.9% 1000 ML 1,000 ML IV SCH ×2 (15:40→21:41)
[2016-11-14] MEDS ORDERED: DIPRIVAN 10 MG/ML IV ONE ×2 (15:53)
--- NOTE | 2016-11-14 16:01 | Anesthesia Day of Surgery ---
Anesthesia Day of Surgery - Day of Surgery Patient Examined: Yes Patient H&P Reviewed: Yes Patient is NPO: Yes
--- NOTE | 2016-11-14 16:01 | Anesthesia Consultation ---
Anesthesia Consult and Med Hx Date of service: 11/14/16 - Airway Anesthetic Teeth Evaluation: Good ROM Head & Neck: Adequate Mental/Hyoid Distance: Adequate Mallampati Class: Class II Intubation Access Assessment: Probably Good - Pulmonary Exam CTA: Yes - Cardiac Exam Cardiac Exam: RRR - Pre-Operative Health Status ASA Pre-Surgery Classification: ASA3 Proposed Anesthetic Plan: MAC - Pre-Anesthesia Comment Pre-Anesthesia Comments: Pt with Crohn's, RA - Pulmonary Hx Smoking: Yes (quit 3 years) Hx Asthma: Yes (last since child [place], reports hx of bronchitis) - Cardiovascular System Hx Hypertension: No - Central Nervous System Hx Seizures: No Hx Psychiatric Problems: No - Endocrine Hx Renal Disease: No Hx Hypothyroidism: No Hx Hyperthyroidism: No - Hematic Hx Anemia: No Hx Sickle Cell Disease: Yes - Other Systems Hx Alcohol Use: Yes Hx Cancer: Yes (esophagus) - Additional Comments Anesthesia Medical History Comments: prolonged intubation after tubal ligation, no complications with previous EGD
--- NOTE | 2016-11-14 16:36 | Post Operative Note ---
Pre-op diagnosis: hematemesis Post-op diagnosis: same Findings: EGD: small hiatal hernia - mild irritation g-e junction - mild gastritis (bx's) - negative other Procedure: EGD Anesthesia: MAC Surgeon: LESIA TODD Estimated blood loss: none Pathology: list Specimen disposition: to lab Condition: stable Disposition: floor
[2016-11-14] MEDS: BENADRYL IV PRN ×2 (17:58→21:53)
--- NOTE | 2016-11-14 19:56 | Operative Report ---
PROCEDURE: Esophagogastroduodenoscopy with cold biopsy. INDICATION: 1. Hematemesis. 2. Nausea, vomiting. 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 COMPLICATIONS: None. DESCRIPTION OF PROCEDURE: The patient brought to procedure suite. The patient had the procedure discussed with her at length. All risks, complications, and benefits discussed after which the patient signed for the procedure to be performed. The patient was placed in left decubitus position. Mouth block was placed in the patient's oral cavity. After adequate sedation medication as above, endoscope was introduced into the mouth and brought to the level of the second portion of duodenum. Retroflexion view performed. The patient's vital signs remained stable throughout the procedure. FINDINGS: There was noted to be a small hiatal hernia at GE junction 37 cm from the gums. Mild irritation and inflammation noted at GE junction. No obvious stigmata of bleeding was noted and the esophagus otherwise appeared benign. Mild evidence of gastritis with erosions noted. Biopsies were taken and sent to Pathology. The remaining stomach otherwise appeared to be normal. Duodenum appeared to be normal. Retroflexion view performed in the stomach showed no other pathology other than noted above. The patient tolerated the procedure well. No complications during the procedure. IMPRESSION: 1. Hiatal hernia. 2. Mild esophagitis without stigmata of bleeding. 3. Otherwise, normal esophagus. 4. Gastritis, biopsy performed. 5. Otherwise, normal stomach. 6. Normal duodenum. RECOMMENDATIONS: 1. Follow biopsy results. 2. Stool for H. pylori, if positive, we will treat. 3. PPI daily. 4. Advance diet. 5. Okay to discharge from GI standpoint, we will sign off. Call if needed. JOB# [id number] [facility]
[2016-11-14] MEDS: PEPCID IV SCH (21:35)
[2016-11-14 22:07] LABS: Hemoglobin 9.3 gm/dl (10.1-14.3)
[2016-11-15] MEDS: REGLAN IV PRN ×2 (03:47→08:21)
[2016-11-15] MEDS: DILAUDID IV PRN ×2 (03:48→08:21)
--- NOTE | 2016-11-15 08:00 | Discharge Summary ---
Providers - Providers Date of Admission: 11/14/16 04:33 Date of discharge: 11/15/16 Attending physician: FRANK SILVA Primary care physician: [facility] Hospitalization Reason for admission: hematemesis Condition: Stable Hospital course: Patient is a 26 y/o female admitted on 11/14/16 for hematemesis. She reported N/ V that began 2 days prior to admission. She also c/o epigastric pain and occasional dizziness. She has a hx of Crohn's disease with frequent diarrhea, but denied hematochezia. She was also dx with esophageal CA 05/2016, no surgery or chemo has been done at this time. She is currently on azathoprine. Denied fever, chills, dysphagia, odynophagia, melena, hematochezia, CP, or SOB. No NSAID use. Patient was seen by gastroenterology in consultation. Patient underwent EGD which revealed small hiatal hernia, mild irritation at the GE junction and mild gastritis with biopsies taken. Patient was otherwise stable with no evidence of active bleeding. H&H remained stable throughout hospitalization. Patient was felt to have received maximal hospital benefit. Patient will be discharged home. Disposition: DC- TO HOME OR SELFCARE Time spent for discharge: 32 - Discharge Diagnoses (1) Hematemesis with nausea Status: Acute (2) Crohn's disease Status: Acute Qualifiers: Gastrointestinal tract location: G Digestive disease complication type: D (3) Upper GI bleeding Status: Acute Core Measure Documentation - Palliative Care Palliative Care/ Comfort Measures: Not Applicable - Core Measures Any of the following diagnoses?: none Exam - Constitutional Vitals: Temp Pulse Resp BP Pulse Ox 98.7 F 55 L 18 141/78 100 11/15/16 04:46 11/15/16 04:46 11/15/16 04:46 11/15/16 04:46 11/14/16 21:15 General appearance: Present: no acute distress, well-nourished - EENT Eyes: Present: PERRL ENT: hearing intact, clear oral mucosa - Neck Neck: Present: supple, normal ROM - Respiratory Respiratory effort: normal Respiratory: bilateral: CTA - Cardiovascular Heart Sounds: Present: S1 & S2. Absent: rub, click - Extremities Extremities: pulses symmetrical, No edema Peripheral Pulses: within normal limits - Abdominal General gastrointestinal: Present: soft, non-tender, non-distended, normal bowel sounds Female genitourinary: Present: normal - Integumentary Integumentary: Present: clear, warm, dry - Musculoskeletal Musculoskeletal: gait normal, strength equal bilaterally - Psychiatric Psychiatric: appropriate mood/affect, intact judgment & insight - Neurologic Neurologic: CNII-XII intact, moves all extremities Plan Activity: no restrictions Weight Bearing Status: Full Weight Bearing Diet: regular Follow up with: PRIMARY CARE, [Primary Care Provider] - 3-5 Days LESIA TODD MD [Staff Physician] - 7 Days Forms: Accompanied Note Prescriptions: amLODIPine [Norvasc] 10 mg PO DAILY #30 tablet fentaNYL [Duragesic] 75 mcg TD Q48H #2 patch Metoclopramide [Reglan TAB] 10 mg PO TID PRN #90 tablet PRN Reason: Nausea Oxycodone HCl [Roxicodone] 10 mg PO Q6H PRN #10 tablet PRN Reason: Pain Pantoprazole [Protonix] 40 mg PO QDAY #30 tablet
[2016-11-15 08:11] LABS: Eosinophils % (Auto) 4.3 % (0.0-4.3); Hematocrit 26.9 % (30.3-42.9); Hemoglobin 8.9 gm/dl (10.1-14.3); Mean Corpuscular HGB Conc 33 % (30-34); Mean Corpuscular Hemoglobin 29 pg (28-32); Mean Corpuscular Volume 86 fl (79-97); Platelet Count 137 K/mm3 (140-440); Red Blood Count 3.11 M/mm3 (3.65-5.03); Red Cell Distribution Width 13.1 % (13.2-15.2)
[2016-11-15] MEDS: NACL 0.9% 1000 ML 1,000 ML IV SCH (08:27)
[2016-11-15 09:01] VITALS: BP 129/76
[2016-11-15] MEDS: PEPCID IV SCH (10:16)
[2016-11-15] MEDS: PROTONIX IV SCH (10:16)
[2016-11-15 12:53] LABS: Blood Urea Nitrogen 9 mg/dL (7-17); Calcium 7.9 mg/dL (8.4-10.2); Carbon Dioxide 20 mmol/L (22-30); Chloride 107.8 mmol/L (98-107); Glucose 71 mg/dL (65-100); Potassium 3.3 mmol/L (3.6-5.0); Sodium 142 mmol/L (137-145)
[2016-11-15 12:56] LABS: Anion Gap 18 mmol/L
[2016-11-16] MEDS ORDERED: PROTONIX PO SCH (10:00)
== END 2016-11-15 11:40 | disposition home or self-care (01) | DRG 378 ==
LOC: ED 14:28 → 3A 11-14 04:33
PROVIDERS: ADMIT Internal Medicine; ATTEND Hospitalist
PROC: 0DB68ZX Excision of Stomach, Via Natural or Artificial Opening Endoscopic, Diagnostic (ICD-10-PCS; principal; 2016-11-14)
DX: K92.2 Gastrointestinal hemorrhage, unspecified (principal); C15.9 Malignant neoplasm of esophagus, unspecified; K50.90 Crohn's disease, unspecified, without complications; K92.0 Hematemesis; I10 Essential (primary) hypertension; K44.9 Diaphragmatic hernia without obstruction or gangrene; K29.70 Gastritis, unspecified, without bleeding; J45.909 Unspecified asthma, uncomplicated; D57.1 Sickle-cell disease without crisis; D50.0 Iron deficiency anemia secondary to blood loss (chronic); Z88.1 Allergy status to other antibiotic agents; Z88.8 Allergy status to other drugs, medicaments and biological substances; Z88.6 Allergy status to analgesic agent; Z98.51 Tubal ligation status; Z90.49 Acquired absence of other specified parts of digestive tract; Z82.49 Family history of ischemic heart disease and other diseases of the circulatory system; Z68.21 Body mass index [BMI] 21.0-21.9, adult; Z87.891 Personal history of nicotine dependence
CPT/HCPCS: 36415; 71010; 71260; 80048; 80053; 83690; 85014; 85018; 85025; 85610; 85730; 86850; 86900; 86901; 88305; 88342; 93005; 93010; 94760; 96361; 96374; 96375; 96376; C9113; J1170; J1200; J2405; J2704; J2765; J7030; Q9967

== ENCOUNTER 2016-11-20 06:56 | Emergency (ER) | payer MEDICAID ==
[2016-11-20] MEDS ORDERED: NACL 0.9% 1000 ML 1,000 ML IV ONE (07:26)
[2016-11-20 08:14] LABS: Basophils % (Auto) 0.8 % (0.0-1.8); Eosinophils % (Auto) 5.8 % (0.0-4.3); Hematocrit 30.2 % (30.3-42.9); Hemoglobin 10.1 gm/dl (10.1-14.3); Mean Corpuscular HGB Conc 33 % (30-34); Mean Corpuscular Hemoglobin 29 pg (28-32); Mean Corpuscular Volume 86 fl (79-97); Platelet Count 200 K/mm3 (140-440); Red Blood Count 3.51 M/mm3 (3.65-5.03); Red Cell Distribution Width 13.2 % (13.2-15.2); White Blood Count 5.5 K/mm3 (4.5-11.0)
[2016-11-20 08:22] LABS: INR 0.98 (0.87-1.13); Partial Thromboplastin Time 28.4 Sec. (24.2-36.6)
[2016-11-20 08:37] LABS: Alanine Aminotransferase 11 units/L (7-56); Albumin 3.7 g/dL (3.9-5); Albumin/Globulin Ratio 1.5 %; Alkaline Phosphatase 61 units/L (35-129); Anion Gap 13 mmol/L; BUN/Creatinine Ratio 18.57; Blood Urea Nitrogen 13 mg/dL (7-17); Calcium 8.8 mg/dL (8.4-10.2); Carbon Dioxide 27 mmol/L (22-30); Chloride 104.4 mmol/L (98-107); Glucose 91 mg/dL (65-100); Lipase 50 units/L (13-60); Potassium 3.8 mmol/L (3.6-5.0); Sodium 141 mmol/L (137-145); Total Protein 6.2 g/dL (6.3-8.2)
[2016-11-20 16:02] VITALS: BP 136/92
--- NOTE | 2016-11-20 18:00 | Emergency Department Report ---
ED Abdominal Pain HPI - General Chief Complaint: GI Bleed Stated Complaint: RECTAL BLEEDING/EMESIS/FEVER Time Seen by Provider: 11/20/16 15:47 Source: patient Mode of arrival: Wheelchair Limitations: No Limitations - History of Present Illness Initial Comments: Patient with recent discharge from hospital for abdominal pain and n/v. Patient reports endoscopy evaluation. Discharged stable. MD Complaint: abdominal pain -: Gradual, days(s) Location: diffuse Radiation: none Migration to: no migration Severity: mild Severity scale (0 -10): 2 Quality: aching Consistency: intermittent Improves With: nothing Worsens With: nothing Context: other (patient reports history of esophageal cancer and chrons. Reports that she is followed by GI) Associated Symptoms: nausea, vomiting, hematochezia. denies: diarrhea, fever, chills, constipation, dysuria, hematemesis, melena, hematuria, syncope - Related Data Home Medications Medication Instructions Recorded Confirmed Last Taken azaTHIOprine 50 mg PO BID 08/28/16 11/20/16 Unknown Previous Rx's Medication Instructions Recorded Last Taken Type Metoclopramide [Reglan TAB] 10 mg PO TID PRN #90 tablet 11/15/16 Unknown Rx Oxycodone HCl [Roxicodone] 10 mg PO Q6H PRN #10 tablet 11/15/16 Unknown Rx Pantoprazole [Protonix] 40 mg PO QDAY #30 tablet 11/15/16 Unknown Rx amLODIPine [Norvasc] 10 mg PO DAILY #30 tablet 11/15/16 Unknown Rx fentaNYL [Duragesic] 75 mcg TD Q48H #2 patch 11/15/16 Unknown Rx Allergies Allergy/AdvReac Type Severity Reaction Status Date / Time levofloxacin [From Levaquin] Allergy Rash Verified 11/20/16 07:17 morphine Allergy Rash Verified 11/20/16 07:17 ondansetron HCl Allergy Hives Verified 11/20/16 07:17 [From Zofran (as hydrochloride)] ED Review of Systems ROS: Stated complaint: RECTAL BLEEDING/EMESIS/FEVER Other details as noted in HPI Other: GENERAL: No weight change, fatigue, weakness, fever, chills, or night sweats SKIN: No changes in skin or hair, no itching, no rashes, no jaundice HEAD: No trauma, headache, or visual changes EYES: No blurriness, tearing, itching, acute visual loss, conjunctival discoloration, or scleral icterus EARS: No hearing loss, tinnitus, vertigo, or earache NOSE: No rhinorrhea, stuffiness, sneezing, itching, or epistaxis MOUTH: No bleeding gums, hoarseness, sore throat, or swelling CARDIAC: No new murmur, chest pain, palpitations, dyspnea on exertion, orthopnea , PND, or edema RESPIRATORY: No shortness of breath, wheeze, cough, sputum production, hemoptysis, pneumonia, asthma, bronchitis, or emphysema GI: nausea, vomiting, hematochezia, or abdominal pain URINARY: No frequency, urgency, polyuria, dysuria, hematuria, or incontinence MUSCULOSKELETAL: No muscle weakness, joint stiffness, decrease in range of motion, redness, swelling, tenderness NEUROLOGIC: No loss of sensation, numbness, tingling, tremors, weakness, paralysis, seizures HEMATOLOGIC: No anemia, easy bruising, bleeding, petechiae, or purpura ENDOCRINE: No hot or cold intolerance, sweating, polyuria, polydipsia or, polyphagia no thyroid problems PSYCHIATRIC: No change in mood, no anxiety, no depression ED Past Medical Hx - Past Medical History Hx Hypertension: No Hx Diabetes: No Hx Deep Vein Thrombosis: No Hx Renal Disease: No Hx of Cancer: Yes (ESOPHGEAL) Hx Sickle Cell Disease: Yes Hx Seizures: No Hx Asthma: Yes (last since child c[place], reports hx of bronchitis) Hx HIV: No Additional medical history: crohns - Surgical History Additional Surgical History: tubal ligation in September 2014 - Social History Smoking Status: Never Smoker Substance Use Type: None - Medications Home Medications: Home Medications Medication Instructions Recorded Confirmed Last Taken Type azaTHIOprine 50 mg PO BID 08/28/16 11/20/16 Unknown History Metoclopramide [Reglan TAB] 10 mg PO TID PRN #90 tablet 11/15/16 11/20/16 Unknown Rx Oxycodone HCl [Roxicodone] 10 mg PO Q6H PRN #10 tablet 11/15/16 11/20/16 Unknown Rx Pantoprazole [Protonix] 40 mg PO QDAY #30 tablet 11/15/16 11/20/16 Unknown Rx amLODIPine [Norvasc] 10 mg PO DAILY #30 tablet 11/15/16 11/20/16 Unknown Rx fentaNYL [Duragesic] 75 mcg TD Q48H #2 patch 11/15/16 11/20/16 Unknown Rx ED Physical Exam - General Limitations: No Limitations - Other Other exam information: GENERAL: Patient in no acute distress HEAD: Normocephalic, atraumatic EYES: PERRLA, EOM intact, no scleral icterus, no conjunctival hemorrhage, visual jacobson and acuity wnl, NOSE: No tenderness, discharge, sinus tenderness MOUTH: No erythema, bleeding, exudate HEART: Regular rate and rhythm, no murmur, S1-S2 are auscultated, pulses are symmetric LUNGS: No wheezing, rales, rhonchi, bilateral breath sounds ABDOMEN: Normal bowel sounds, no tenderness, no rebound, no guarding, no masses , no CVA tenderness. Patient dislayed no active vomiting since being in the ER since 7a according to nursing staff and no active vomiting on exam. MUSCULOSKELETAL: Normal joint range of motion, no redness, no swelling, no tenderness NEUROLOGIC: GCS 15, Alert and Oriented x3, Cranial nerves intact, normal sensation, normal strength, normal gait, no cerebellar deficit PSYCHIATRIC: Combative. No homicidal or suicidal ideation, no hallucinations SKIN: Skin is warm and dry, no wounds, no rashes ED Course Vital Signs 11/20/16 11/20/16 11/20/16 07:17 13:58 15:47 Temperature 98 F 98.6 F Pulse Rate 68 51 L Respiratory 16 14 Rate Blood Pressure 139/97 136/92 Blood Pressure 150/74 [Right] O2 Sat by Pulse 100 100 100 Oximetry 11/20/16 11/20/16 11/20/16 15:58 16:01 17:01 Temperature 98.6 F Pulse Rate 56 L 49 L 59 L Respiratory 11 L 15 10 L Rate Blood Pressure 156/96 136/92 Blood Pressure 136/92 [Right] O2 Sat by Pulse 100 100 Oximetry ED Medical Decision Making - Lab Data Result diagrams: 11/20/16 07:59 11/20/16 07:59 - Medical Decision Making Updated with results. Plan discharge with outpatient follow-up. Patient with established care. Patient reports that her erendira's are not strong enough. Patient encouraged to follow up with GI and/or a pain specialists to discuss other treatment option. Patient encouraged to return if symptoms worsen. Critical care attestation.: If time is entered above; I have spent that time in minutes in the direct care of this critically ill patient, excluding procedure time. ED Disposition Clinical Impression: Abdominal pain Qualifiers: Abdominal location: unspecified location Qualified Code(s): R10.9 - Unspecified abdominal pain Disposition: TO HOME OR SELFCARE Is pt being admited?: No Condition: Stable Instructions: Abdominal Pain (ED) Referrals: PRIMARY CARE, [Primary Care Provider] - 2-3 Days [facility] [Provider Group] - 2-3 Days Forms: Accompanied Note Time of Disposition: 18:00
[2016-11-21] MEDS ORDERED: LEXISCAN IV ONE (09:51)
== END 2016-11-20 18:06 | disposition home or self-care (01) ==
LOC: ED 06:56
DX: R10.84 Generalized abdominal pain (principal); R11.2 Nausea with vomiting, unspecified; J45.909 Unspecified asthma, uncomplicated; K50.90 Crohn's disease, unspecified, without complications; C15.9 Malignant neoplasm of esophagus, unspecified; Z98.51 Tubal ligation status; Z88.1 Allergy status to other antibiotic agents; Z88.6 Allergy status to analgesic agent
CPT/HCPCS: 36415; 80053; 83690; 84703; 85025; 85610; 85730; 86850; 86900; 86901; 93005; 93010; 99284; J2785

== ENCOUNTER 2018-03-01 21:45 | Emergency (ER) | payer MEDICAID, OTHER ==
[2018-03-01] MEDS ORDERED: NACL 0.9% 500 ML 500 ML IV ONE (21:56)
[2018-03-01] MEDS ORDERED: SUBLIMAZE IV ONE (22:33)
[2018-03-01] MEDS ORDERED: REGLAN IV ONE (22:33)
[2018-03-01] MEDS ORDERED: TYLENOL PO ONE (22:42)
--- NOTE | 2018-03-01 22:42 | Emergency Department Report ---
HPI - General Chief Complaint: Fever Time Seen by Provider: 03/01/18 22:23 - HPI HPI: Room 7 The patient is 28-year-old female presenting with a chief complaint of shortness of breath cough and Crohn's flare. The patient states her symptoms began approximately 10 days ago abdominal pain intermittently bloody stool consistent with her Crohn's. The patient states yesterday she developed shortness of breath or cough productive of yellowish green sputum and nasal pressure. Patient admits to rhinorrhea and pain in the anterior and right lateral aspect of the chest. Patient states today she also developed nausea vomiting and headache. Patient denies sick contacts. Patient gives her abdominal pain score of 9/10. Location: [See above] Duration: [See above] Quality: Pain Severity: 9/10 Modifying factors: [see above] Context: [see above] Mode of transportation: [not driving] ED Past Medical Hx - Past Medical History Hx Asthma: Yes (last since child cren[place], reports hx of bronchitis) Additional medical history: crohns - Surgical History Additional Surgical History: tubal ligation in September 2014, tonsillectomy and adenoidectomy - Family History Family history: no significant - Social History Smoking Status: Current Some Day Smoker Substance Use Type: None (denies illicit drug use) - Medications Home Medications: Home Medications Medication Instructions Recorded Confirmed Last Taken Type azaTHIOprine 50 mg PO BID 08/28/16 11/20/16 Unknown History Metoclopramide [Reglan TAB] 10 mg PO TID PRN #90 tablet 11/15/16 11/20/16 Unknown Rx Oxycodone HCl [Roxicodone] 10 mg PO Q6H PRN #10 tablet 11/15/16 11/20/16 Unknown Rx Pantoprazole [Protonix] 40 mg PO QDAY #30 tablet 11/15/16 11/20/16 Unknown Rx amLODIPine [Norvasc] 10 mg PO DAILY #30 tablet 11/15/16 11/20/16 Unknown Rx fentaNYL [Duragesic] 75 mcg TD Q48H #2 patch 11/15/16 11/20/16 Unknown Rx ALBUTEROL Inhaler (OR & NICU) 2 puff IH QID PRN #1 inhalation 03/02/18 Unknown Rx [Proair] Amoxicillin/Potassium Clav 1 each PO BID #20 tablet 03/02/18 Unknown Rx [Augmentin 875-125 Tablet] HYDROcodone/APAP 5-325 [[place]mage 1 - 2 each PO Q6HR PRN #14 tablet 03/02/18 Unknown Rx 5/325] Ibuprofen [Motrin 800 MG tab] 800 mg PO Q8HR PRN #20 tablet 03/02/18 Unknown Rx Promethazine [Phenergan TAB] 25 mg PO Q6HR PRN #20 tab 03/02/18 Unknown Rx ED Review of Systems ROS: Stated complaint: ABDOMINAL PAIN,DIARRHEA,COUGHT Other details as noted in HPI Constitutional: denies: fever Eyes: denies: eye pain ENT: congestion, other (rhinorrhea) Respiratory: cough, shortness of breath Cardiovascular: chest pain Endocrine: no symptoms reported Gastrointestinal: abdominal pain, nausea, vomiting, hematochezia Genitourinary: denies: dysuria Musculoskeletal: myalgia Neurological: headache Physical Exam - Physical Exam Vital Signs: Vital Signs 03/01/18 22:00 Temperature 102.1 F H Pulse Rate 103 H Respiratory 18 Rate Blood Pressure 137/92 O2 Sat by Pulse 99 Oximetry Physical Exam: GENERAL: The patient is well-developed well-nourished female lying on stretcher appearing to be in moderate discomfort HEENT: Normocephalic. Atraumatic. Extraocular motions are intact. Patient has moist mucous membranes. NECK: Supple. No meningitic signs are noted. Trachea midline CHEST/LUNGS: Clear to auscultation. There is no respiratory distress noted. HEART/CARDIOVASCULAR: Regular. There is tachycardia. There is no gallop rub or murmur. ABDOMEN: Abdomen is soft, with tenderness to palpation in the midepigastric, right upper quadrant and left upper quadrant. Patient has normal bowel sounds. There is no abdominal distention. SKIN: There is no rash. There is no edema. There is no diaphoresis. NEURO: The patient is awake, alert, and oriented. The patient is cooperative. The patient has normal speech MUSCULOSKELETAL: There is no evidence of acute injury. ED Course Vital Signs 03/01/18 22:00 Temperature 102.1 F H Pulse Rate 103 H Respiratory 18 Rate Blood Pressure 137/92 O2 Sat by Pulse 99 Oximetry ED Medical Decision Making - Lab Data Result diagrams: 03/01/18 22:59 03/01/18 22:59 Laboratory Tests 03/01/18 03/01/18 03/01/18 22:00 22:59 22:59 WBC 10.5 RBC 3.71 Hgb 11.1 Hct 33.4 MCV 90 MCH 30 MCHC 33 RDW 13.3 Plt Count 171 Baso % (Auto) Supervisor Shuttle Fitting PT 14.7 INR 1.09 VBG pH Sodium Potassium Chloride Carbon Dioxide Anion Gap BUN Creatinine Estimated GFR BUN/Creatinine Ratio Glucose Lactic Acid Calcium Total Bilirubin AST ALT Alkaline Phosphatase Total Protein Albumin Albumin/Globulin Ratio HCG, Qual Influenza A (Rapid) Negative Influenza B (Rapid) Negative 03/01/18 03/01/18 03/01/18 22:59 22:59 22:59 WBC RBC Hgb Hct MCV MCH MCHC RDW Plt Count Baso % (Auto) PT INR VBG pH Sodium 140 Potassium 3.5 L Chloride 107.2 H Carbon Dioxide 22 Anion Gap 14 BUN 12 Creatinine 0.6 L Estimated GFR > 60 BUN/Creatinine Ratio 20 Glucose 90 Lactic Acid 0.80 Calcium 9.1 Total Bilirubin 0.40 AST 21 ALT 15 Alkaline Phosphatase 72 Total Protein 6.5 Albumin 4.2 Albumin/Globulin Ratio 1.8 HCG, Qual Negative Influenza A (Rapid) Influenza B (Rapid) 03/01/18 03/02/18 22:59 00:20 WBC RBC Hgb Hct MCV MCH MCHC RDW Plt Count Baso % (Auto) PT INR VBG pH 7.456 H Sodium Potassium Chloride Carbon Dioxide Anion Gap BUN Creatinine Estimated GFR BUN/Creatinine Ratio Glucose Lactic Acid 0.50 L Calcium Total Bilirubin AST ALT Alkaline Phosphatase Total Protein Albumin Albumin/Globulin Ratio HCG, Qual Influenza A (Rapid) Influenza B (Rapid) - EKG Data -: EKG Interpreted by Me EKG shows normal: sinus rhythm Rate: normal - EKG Data When compared to previous EKG there are: previous EKG unavailable Interpretation: normal EKG (no ischemic changes seen) - Radiology Data Radiology results: report reviewed (chest x-ray, CT abdomen and pelvis), image reviewed (chest x-ray) interpreted by me: Chest x-ray-no focal infiltrates, no pneumothorax CT abdomen and pelvis (read by radiologist) -no acute process in the abdomen or pelvis - Differential Diagnosis pneumonia, sinusitis, influenza, bronchitis, Crohn's flare Critical care attestation.: If time is entered above; I have spent that time in minutes in the direct care of this critically ill patient, excluding procedure time. ED Disposition Clinical Impression: Abdominal pain, Crohn's disease, Acute bronchitis, Fever Disposition: TO HOME OR SELFCARE Is pt being admited?: No Does the pt Need Aspirin: No Condition: Stable Instructions: Acute Bronchitis (ED) Additional Instructions: Return to the emergency department immediately should you develop worsening symptoms, fever, inability to tolerate food or liquid or any other concerns. Prescriptions: ALBUTEROL Inhaler (OR & NICU) [Proair] 2 puff IH QID PRN #1 inhalation PRN Reason: Shortness Of Breath Amoxicillin/Potassium Clav [Augmentin 875-125 Tablet] 1 each PO BID #20 tablet HYDROcodone/APAP 5-325 [Talmage 5/325] 1 - 2 each PO Q6HR PRN #14 tablet PRN Reason: Pain Ibuprofen [Motrin 800 MG tab] 800 mg PO Q8HR PRN #20 tablet PRN Reason: Pain, Moderate (4-6) Promethazine [Phenergan TAB] 25 mg PO Q6HR PRN #20 tab PRN Reason: Nausea Referrals: PRIMARY CARE, [Primary Care Provider] - 3-5 Days Time of Disposition: 01:49
[2018-03-01 23:25] LABS: Hematocrit 33.4 % (30.3-42.9); Hemoglobin 11.1 gm/dl (10.1-14.3); Mean Corpuscular HGB Conc 33 % (30-34); Mean Corpuscular Hemoglobin 30 pg (28-32); Mean Corpuscular Volume 90 fl (79-97); Platelet Count 171 K/mm3 (140-440); Red Blood Count 3.71 M/mm3 (3.65-5.03); Red Cell Distribution Width 13.3 % (13.2-15.2)
[2018-03-01 23:29] LABS: INR 1.09 (0.87-1.13)
[2018-03-01 23:36] LABS: Alanine Aminotransferase 15 units/L (7-56); Albumin 4.2 g/dL (3.9-5); BUN/Creatinine Ratio 20; Blood Urea Nitrogen 12 mg/dL (7-17); Calcium 9.1 mg/dL (8.4-10.2); Hemolysis Index 75
--- NOTE | 2018-03-02 00:22 | XRay Report ---
FINAL REPORT EXAM: XR CHEST 1V AP HISTORY: possible Sepsis TECHNIQUE: A portable upright view the chest was obtained. FINDINGS: The heart size and mediastinum appear normal. The lungs are clear. Pleural fluid is not seen. The skeletal structures reveal a dextroscoliosis of the cervical thoracic junction. IMPRESSION: No acute cardiopulmonary process.
[2018-03-02] MEDS ORDERED: DILAUDID IV ONE (01:23)
[2018-03-02] MEDS ORDERED: TORADOL IV ONE (01:24)
--- NOTE | 2018-03-02 01:40 | Cat Scan Report ---
FINAL REPORT EXAM: CT ABDOMEN PELVIS W CON HISTORY: upper abdominal pain, history of Crohn's TECHNIQUE: Routine axial imaging was obtained of the abdomen and pelvis following the intravenous injection of 100 cc Omnipaque 300. Delayed imaging was obtained through the kidneys ureters and bladder. Sagittal and coronal reconstructions were reviewed. Correlation is made to the study 05/15/2016. FINDINGS: The lung bases are clear. Pleural fluid is not seen. The liver, gallbladder, biliary tree, pancreas, spleen, and adrenal glands appear normal. The kidneys enhance normally. There is no evidence hydronephrosis. The abdominal aorta and vascular structures enhance normally. The bowel loops are not distended. There are several fluid-filled loops of small bowel in the pelvis. No definite transition point is seen. The appendix is not seen. The uterus and bladder appear normal. The adnexa appears normal. Adenopathy is not identified. The skeletal structures do not show any acute changes. IMPRESSION: No acute process in the abdomen and pelvis. Several nondistended fluid-filled loops of small bowel in the pelvis which are nonspecific. No evidence of active inflammatory bowel disease at this time.
[2018-03-02 02:42] VITALS: BP 110/68
[2018-03-02 03:36] LABS: Total Cells Counted 100
[2018-03-02 03:37] LABS: Band Neutrophils # (Manual) 0.1 K/mm3; Basophils % (Manual) 0 % (0.0-1.8)
[2018-03-02 03:38] LABS: Platelet Estimate Consistent w Auto
== END 2018-03-02 02:20 | disposition home or self-care (01) ==
LOC: ED 21:45
DX: K50.90 Crohn's disease, unspecified, without complications (principal); J20.9 Acute bronchitis, unspecified; J45.909 Unspecified asthma, uncomplicated; F17.200 Nicotine dependence, unspecified, uncomplicated
CPT/HCPCS: 36415; 71045; 74177; 80053; 82140; 82805; 84703; 85007; 85025; 85610; 87040; 87400; 93005; 93010; 96374; 96375; 99285; J1170; J1885; J2765; J3010; J7040; Q9967

== ENCOUNTER 2018-07-08 22:59 | Emergency (ER) | payer OTHER ==
[2018-07-08 23:44] LABS: Basophils # (Auto) 0.1 K/mm3 (0.0-0.1); Basophils % (Auto) 1.1 % (0.0-1.8); Eosinophils # (Auto) 0.2 K/mm3 (0.0-0.4); Eosinophils % (Auto) 3.4 % (0.0-4.3); Hematocrit 34.8 % (30.3-42.9); Hemoglobin 11.4 gm/dl (10.1-14.3); Lymphocytes # (Auto) 2.5 K/mm3 (1.2-5.4); Lymphocytes % (Auto) 37.4 % (13.4-35.0); Mean Corpuscular HGB Conc 33 % (30-34); Mean Corpuscular Volume 91 fl (79-97); Monocytes # (Auto) 0.5 K/mm3 (0.0-0.8); Platelet Count 280 K/mm3 (140-440); Red Blood Count 3.83 M/mm3 (3.65-5.03); Red Cell Distribution Width 14.6 % (13.2-15.2)
[2018-07-09 00:53] LABS: Alanine Aminotransferase 11 units/L (7-56); Albumin 4.4 g/dL (3.9-5); BUN/Creatinine Ratio 22; Blood Urea Nitrogen 11 mg/dL (7-17); Calcium 9.2 mg/dL (8.4-10.2); Hemolysis Index 6
[2018-07-09 01:17] VITALS: BP 138/92
[2018-07-09] MEDS ORDERED: TYLENOL PO ONE (02:19)
[2018-07-09] MEDS ORDERED: DILAUDID IM ONE (02:19)
[2018-07-09] MEDS ORDERED: REGLAN PO ONE (02:19)
[2018-07-09] MEDS ORDERED: K-DUR PO STA (02:19)
--- NOTE | 2018-07-09 02:21 | Emergency Department Report ---
ED General Adult HPI - General Chief complaint: Abdominal Pain Stated complaint: ABD PAIN/EMESIS Time Seen by Provider: 07/09/18 02:06 Source: patient, RN notes reviewed, old records reviewed Mode of arrival: Ambulatory Limitations: No Limitations - History of Present Illness Initial comments: This is a 28-year-old female whom I have evaluated in the past. She reports that she is following up with her motorcycle mechanic apprentice, Dr. Mason, next week. Patient was seen in this hospital for acute on chronic abdominal pain on June 22, and had a CT scan which was negative for acute disease. Please see my note from April 2018 for full details of the patient's past medical history. 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 The patient presents today with a complaint of abdominal pain, nausea and vomiting for the past week, but reports 7 episodes of nonbloody, nonbilious emesis, one to 2 episodes of watery diarrhea, frontal sinus pain, bilateral ear fullness, and shoulder girdle pain and muscular pain. Patient reports that she feels like she is coming down with a cold. She denies fever, and urinary symptoms. Her pain is achy, sharp, increases with palpation, and decreases with rest. She denies urinary symptoms. In the emergency room, the patient has had no wi tnessed episodes of vomiting or diarrhea. -: Gradual Location: head, face, back, abdomen, left, right, upper extremity, lower extremity Radiation: non-radiation Severity scale (0 -10): 10 Quality: aching, other (cramping) Consistency: intermittent Improves with: rest Worsens with: movement Associated Symptoms: cough, loss of appetite, malaise, nausea/vomiting, weakness, other (see history of present illness). denies: confusion, chest pain, diaphoresis, fever/chills, headaches, rash, seizure, shortness of breath, syncope - Related Data Previous Rx's Medication Instructions Recorded Last Taken Type ALBUTEROL Inhaler (OR & NICU) 2 puff IH QID PRN #1 inhalation 03/02/18 03/12/18 Rx [ProAir HFA Inhaler] Promethazine [Phenergan TAB] 25 mg PO Q6HR PRN #20 tab 03/02/18 03/13/18 Rx Acetaminophen [Tylenol Arthritis] 650 mg PO Q6HR PRN #30 tablet.er 04/26/18 Unknown Rx Azithromycin [Zithromax Tri-Aguilar] 500 mg PO QDAY #5 tablet 04/26/18 Unknown Rx metroNIDAZOLE [Flagyl] 500 mg PO Q8HR #15 tablet 04/26/18 Unknown Rx Fluticasone [Flonase] 1 spray NS QDAY #1 bottle 06/22/18 Unknown Rx Pseudoephedrine ER [Sudafed 12 Hr] 120 mg PO BID #10 tablet.er 06/22/18 Unknown Rx oxyCODONE /ACETAMINOPHEN [Percocet 1 tab PO Q6H PRN #10 tablet 06/22/18 Unknown Rx 5/325 mg] Acetaminophen [Acetaminophen TAB] 650 mg PO Q6HR PRN #20 tablet 07/09/18 Unknown Rx Dicyclomine [Bentyl] 10 mg PO QID PRN #15 capsule 07/09/18 Unknown Rx Metoclopramide [Reglan TAB] 10 mg PO QID PRN #30 tablet 07/09/18 Unknown Rx Potassium Chloride [Klor-Con] 20 meq PO QDAY #7 packet 07/09/18 Unknown Rx Promethazine [Phenergan SUPPOS] 50 mg VT Q6H PRN #20 supp.rect 07/09/18 Unknown Rx Allergies Allergy/AdvReac Type Severity Reaction Status Date / Time levofloxacin [From Levaquin] Allergy Rash Verified 11/20/16 07:17 morphine Allergy Rash Verified 11/20/16 07:17 ibuprofen [From Motrin] AdvReac Bleeding Verified 03/02/18 02:49 ED Review of Systems ROS: Stated complaint: ABD PAIN/EMESIS Other details as noted in HPI Eyes: denies: vision change ENT: ear pain, throat pain, congestion. denies: epistaxis Respiratory: cough Cardiovascular: denies: chest pain Gastrointestinal: abdominal pain, nausea, vomiting, diarrhea Genitourinary: denies: dysuria Musculoskeletal: back pain, arthralgia, myalgia Skin: denies: lesions Neurological: weakness Psychiatric: anxiety ED Past Medical Hx - Past Medical History Previous Medical History?: Yes Hx Hypertension: Yes (2014) Hx Congestive Heart Failure: No Hx Sickle Cell Disease: Yes Hx Arthritis: Yes (2011 RA) Hx Asthma: Yes (last since child [place], reports hx of bronchitis) Hx COPD: No Additional medical history: crohns. esophageal Ca-tumor removed - Surgical History Past Surgical History?: Yes Additional Surgical History: tubal ligation in September 2014, tonsillectomy and adenoidectomy - Social History Smoking Status: Current Every Day Smoker Substance Use Type: None - Medications Home Medications: Home Medications Medication Instructions Recorded Confirmed Last Taken Type ALBUTEROL Inhaler (OR & NICU) 2 puff IH QID PRN #1 inhalation 03/02/18 03/13/18 03/12/18 Rx [ProAir HFA Inhaler] Promethazine [Phenergan TAB] 25 mg PO Q6HR PRN #20 tab 03/02/18 03/13/18 03/13/18 Rx Acetaminophen [Tylenol Arthritis] 650 mg PO Q6HR PRN #30 tablet.er 04/26/18 Unknown Rx Azithromycin [Zithromax Tri-Aguilar] 500 mg PO QDAY #5 tablet 04/26/18 Unknown Rx metroNIDAZOLE [Flagyl] 500 mg PO Q8HR #15 tablet 04/26/18 Unknown Rx Fluticasone [Flonase] 1 spray NS QDAY #1 bottle 06/22/18 Unknown Rx Pseudoephedrine ER [Sudafed 12 Hr] 120 mg PO BID #10 tablet.er 06/22/18 Unknown Rx oxyCODONE /ACETAMINOPHEN [Percocet 1 tab PO Q6H PRN #10 tablet 06/22/18 Unknown Rx 5/325 mg] Acetaminophen [Acetaminophen TAB] 650 mg PO Q6HR PRN #20 tablet 07/09/18 Unknown Rx Dicyclomine [Bentyl] 10 mg PO QID PRN #15 capsule 07/09/18 Unknown Rx Metoclopramide [Reglan TAB] 10 mg PO QID PRN #30 tablet 07/09/18 Unknown Rx Potassium Chloride [Klor-Con] 20 meq PO QDAY #7 packet 07/09/18 Unknown Rx Promethazine [Phenergan SUPPOS] 50 mg VT Q6H PRN #20 supp.rect 07/09/18 Unknown Rx ED Physical Exam - General Limitations: No Limitations General appearance: alert, anxious - Head Head exam: Present: atraumatic, normocephalic - Eye Eye exam: Present: normal appearance, PERRL, EOMI. Absent: nystagmus - ENT ENT exam: Present: normal exam, normal orophraynx, mucous membranes moist, TM's normal bilaterally, normal external ear exam, other (there is no mastoid tenderness. Tympanic membranes clear bilaterally. Frontal sinus tenderness.) - Neck Neck exam: Present: normal inspection, full ROM. Absent: tenderness, meningismus - Respiratory Respiratory exam: Present: normal lung sounds bilaterally. Absent: respiratory distress, wheezes, rales, rhonchi, stridor, chest wall tenderness, accessory muscle use, decreased breath sounds, prolonged expiratory - Cardiovascular Cardiovascular Exam: Present: regular rate, normal rhythm, normal heart sounds. Absent: bradycardia, tachycardia, irregular rhythm, systolic murmur, diastolic murmur, rubs, gallop - GI/Abdominal GI/Abdominal exam: Present: soft. Absent: distended, tenderness, guarding, re bound, rigid, pulsatile mass - Extremities Exam Extremities exam: Present: normal inspection, full ROM, tenderness (paracervical tenderness. Upper shoulder girdle musculature tenderness.), other (2+ pulses noted in the bilateral upper, lower extremities. Compartments soft. No long bony tenderness. The pelvis is stable.). Absent: pedal edema, joint swelling, calf tenderness - Back Exam Back exam: Present: normal inspection, full ROM. Absent: tenderness, CVA tenderness (R), paraspinal tenderness, vertebral tenderness - Neurological Exam Neurological exam: Present: alert, oriented X3, CN II-XII intact, normal gait, other (Extraocular movements intact. Tongue midline. No facial droop. Facial sensation intact to light touch in the V1, V2, V3 distribution bilaterally. 5 and 5 strength in 4 extremities.. Sensation is intact to light touch in 4 extremities.). Absent: motor sensory deficit - Psychiatric Psychiatric exam: Present: anxious - Skin Skin exam: Present: warm, dry, intact, normal color. Absent: rash ED Course Vital Signs 07/08/18 07/09/18 07/09/18 23:06 01:15 02:01 Temperature 98.7 F 98.2 F Pulse Rate 89 93 H Respiratory 16 16 Rate Blood Pressure 134/71 138/92 Blood Pressure 138/92 [Left] O2 Sat by Pulse 100 98 100 Oximetry - Reevaluation(s) Reevaluation #1: 07/09/18 03:05 Differential diagnosis, including not limited to: Viral syndrome, myositis, Crohn's disease, irritable bowel syndrome, Assessment and plan: 28-year-old female with no active vomiting, no fever, unremarkable physical exam, basically unremarkable laboratory studies. She rep orts that she has follow-up with her private motorcycle mechanic apprentice within the next 7 days. She did not appear to have an emergent medical condition at this time. Her abdomen is soft and benign. Recently had an unremarkable CT scan of the abdomen and pelvis. We will treat her supportively. She will be discharged with nonnarcotic pain medication, nausea medication, potassium supplementation, instructions to follow up with her outpatient motorcycle mechanic apprentice. Reevaluation #2: 07/09/18 05:10 Patient reporting she is on oxycodone. She is not satisfied with discharge pres criptions of Bentyl and acetaminophen. She didn't further endorse that she had a pain specialist. Patient is counseled that due to current narcotic crisis, opioid crisis, and past history, she would need to follow up with her motorcycle mechanic apprentice, primary care doctor, or pain specialist if she felt like she required additional narcotic prescriptions. She was given Haldol for emesis, and has no active vomiting at this time. Patient spent an extensive period of time with this provider ascertaining why no narcotic prescriptions would be prescribed. This conversation was witnessed and attended by nurse Aura Mayen ED Medical Decision Making - Lab Data Result diagrams: 07/08/18 23:24 07/08/18 23:24 Vital Signs 07/08/18 07/09/18 23:06 01:15 Temperature 98.7 F 98.2 F Pulse Rate 89 93 H Respiratory 16 16 Rate Blood Pressure 134/71 Blood Pressure 138/92 [Left] O2 Sat by Pulse 100 98 Oximetry Lab Results 07/08/18 07/08/18 07/08/18 Range/Units 02:24 02:24 23:24 WBC 6.8 (4.5-11.0) K/mm3 RBC 3.83 (3.65-5.03) M/mm3 Hgb 11.4 (10.1-14.3) gm/dl Hct 34.8 (30.3-42.9) % MCV 91 (79-97) fl MCH 30 (28-32) pg MCHC 33 (30-34) % RDW 14.6 (13.2-15.2) % Plt Count 280 (140-440) K/mm3 Lymph % (Auto) 37.4 H (13.4-35.0) % Carroll % (Auto) 7.0 (0.0-7.3) % Eos % (Auto) 3.4 (0.0-4.3) % Baso % (Auto) 1.1 (0.0-1.8) % Lymph # 2.5 (1.2-5.4) K/mm3 Carroll # 0.5 (0.0-0.8) K/mm3 Eos # 0.2 (0.0-0.4) K/mm3 Baso # 0.1 (0.0-0.1) K/mm3 Seg Neutrophils % 51.1 (40.0-70.0) % Seg Neutrophils # 3.5 (1.8-7.7) K/mm3 Sodium (137-145) mmol/L Potassium (3.6-5.0) mmol/L Chloride (98-107) mmol/L Carbon Dioxide (22-30) mmol/L Anion Gap mmol/L BUN (7-17) mg/dL Creatinine (0.7-1.2) mg/dL Estimated GFR ml/min BUN/Creatinine Ratio % Glucose (65-100) mg/dL Calcium (8.4-10.2) mg/dL Magnesium 1.70 (1.7-2.3) mg/dL Total Bilirubin (0.1-1.2) mg/dL AST (5-40) units/L ALT (7-56) units/L Alkaline Phosphatase (35-129) units/L Total Creatine Kinase 190 H (30-135) units/L Total Protein (6.3-8.2) g/dL Albumin (3.9-5) g/dL Albumin/Globulin Ratio % Lipase (13-60) units/L HCG, Qual (Negative) 07/08/18 07/08/18 Range/Units 23:24 23:24 WBC (4.5-11.0) K/mm3 RBC (3.65-5.03) M/mm3 Hgb (10.1-14.3) gm/dl Hct (30.3-42.9) % MCV (79-97) fl MCH (28-32) pg MCHC (30-34) % RDW (13.2-15.2) % Plt Count (140-440) K/mm3 Lymph % (Auto) (13.4-35.0) % Carroll % (Auto) (0.0-7.3) % Eos % (Auto) (0.0-4.3) % Baso % (Auto) (0.0-1.8) % Lymph # (1.2-5.4) K/mm3 Carroll # (0.0-0.8) K/mm3 Eos # (0.0-0.4) K/mm3 Baso # (0.0-0.1) K/mm3 Seg Neutrophils % (40.0-70.0) % Seg Neutrophils # (1.8-7.7) K/mm3 Sodium 137 (137-145) mmol/L Potassium 3.3 L (3.6-5.0) mmol/L Chloride 102.3 (98-107) mmol/L Carbon Dioxide 21 L (22-30) mmol/L Anion Gap 17 mmol/L BUN 11 (7-17) mg/dL Creatinine 0.5 L (0.7-1.2) mg/dL Estimated GFR > 60 ml/min BUN/Creatinine Ratio 22 % Glucose 87 (65-100) mg/dL Calcium 9.2 (8.4-10.2) mg/dL Magnesium (1.7-2.3) mg/dL Total Bilirubin 0.20 (0.1-1.2) mg/dL AST 18 (5-40) units/L ALT 11 (7-56) units/L Alkaline Phosphatase 65 (35-129) units/L Total Creatine Kinase (30-135) units/L Total Protein 7.1 (6.3-8.2) g/dL Albumin 4.4 (3.9-5) g/dL Albumin/Globulin Ratio 1.6 % Lipase 32 (13-60) units/L HCG, Qual Negative (Negative) - Radiology Data Radiology results: report reviewed, image reviewed Prior imaging studies reviewed Critical care attestation.: If time is entered above; I have spent that time in minutes in the direct care of this critically ill patient, excluding procedure time. ED Disposition Clinical Impression: Abdominal pain Disposition: TO HOME OR SELFCARE Is pt being admited?: No Does the pt Need Aspirin: No Condition: Stable Instructions: Abdominal Pain (ED) Additional Instructions: Advance diet as tolerated. Take the medications as needed/directed. Avoid con sumption of heavy, spicy foods. Follow-up with her motorcycle mechanic apprentice or a motorcycle mechanic apprentice within the next 7-10 days. Return to the emergency room right away with new, worsening, different symptoms. Prescriptions: Acetaminophen [Acetaminophen TAB] 650 mg PO Q6HR PRN #20 tablet PRN Reason: Pain Dicyclomine [Bentyl] 10 mg PO QID PRN #15 capsule PRN Reason: Pain , Severe (7-10) Metoclopramide [Reglan TAB] 10 mg PO QID PRN #30 tablet PRN Reason: Nausea Potassium Chloride [Klor-Con] 20 meq PO QDAY #7 packet Promethazine [Phenergan SUPPOS] 50 mg VT Q6H PRN #20 supp.rect PRN Reason: Nausea Referrals: VIKASH HOLLIS MD [Primary Care Provider] - 3-5 Days [facility] [Provider Group] - 7-10 days
[2018-07-09] MEDS ORDERED: ZOFRAN ODT PO PRN (03:18)
[2018-07-09] MEDS ORDERED: HALDOL IM ONE (04:16)
[2018-07-09] MEDS ORDERED: BENTYL IM ONE (04:21)
== END 2018-07-09 05:02 | disposition home or self-care (01) ==
LOC: ED 22:59
DX: R10.9 Unspecified abdominal pain (principal); R11.2 Nausea with vomiting, unspecified; R19.7 Diarrhea, unspecified; I10 Essential (primary) hypertension; D57.1 Sickle-cell disease without crisis; M19.90 Unspecified osteoarthritis, unspecified site; J45.909 Unspecified asthma, uncomplicated; F17.200 Nicotine dependence, unspecified, uncomplicated; Z98.51 Tubal ligation status; Z90.49 Acquired absence of other specified parts of digestive tract; Z90.89 Acquired absence of other organs; Z88.1 Allergy status to other antibiotic agents; Z88.6 Allergy status to analgesic agent
CPT/HCPCS: 36415; 80053; 82550; 83690; 83735; 84703; 85025; 96372; 99282; J1170; J1630; J0500; Q0162

== ENCOUNTER 2018-07-27 21:48 | Emergency (ER) | payer OTHER ==
[2018-07-27] MEDS ORDERED: NACL 0.9% 1000 ML 1,000 ML IV ONE (22:46)
[2018-07-27 23:20] LABS: Basophils % (Auto) 0.4 % (0.0-1.8); Eosinophils # (Auto) 0.2 K/mm3 (0.0-0.4); Eosinophils % (Auto) 3.5 % (0.0-4.3); Hematocrit 30.8 % (30.3-42.9); Hemoglobin 10.3 gm/dl (10.1-14.3); Lymphocytes # (Auto) 3.2 K/mm3 (1.2-5.4); Lymphocytes % (Auto) 45.8 % (13.4-35.0); Mean Corpuscular HGB Conc 34 % (30-34); Mean Corpuscular Volume 91 fl (79-97); Monocytes # (Auto) 0.6 K/mm3 (0.0-0.8); Monocytes % (Auto) 8.7 % (0.0-7.3); Platelet Count 235 K/mm3 (140-440); Red Blood Count 3.39 M/mm3 (3.65-5.03); Red Cell Distribution Width 13.8 % (13.2-15.2)
[2018-07-27 23:30] LABS: INR 0.9 (0.87-1.13)
[2018-07-27 23:31] LABS: Partial Thromboplastin Time 30.8 Sec. (24.2-36.6)
[2018-07-27 23:46] LABS: Alanine Aminotransferase 10 units/L (7-56); BUN/Creatinine Ratio 20; Blood Urea Nitrogen 14 mg/dL (7-17); Calcium 8.9 mg/dL (8.4-10.2); Hemolysis Index 3
--- NOTE | 2018-07-28 01:18 | Emergency Department Report ---
ED Abdominal Pain HPI - General Chief Complaint: GI Bleed Stated Complaint: STOMACH PAIN RECTAL BLEEDING Time Seen by Provider: 07/28/18 01:08 Source: patient Mode of arrival: Ambulatory Limitations: No Limitations - History of Present Illness Initial Comments: Patient is 28 years old female with history of Crohn's disease and narcotic seeking behavior. Patient presented to the ER complaining of abdominal pain, crampy in nature associated with blood in the stool, nausea and vomiting. I reviewed patient medical records from last admission. Patient was seen by Dr. Spangler from gastroenterology. Patient denied any fever or chills. MD Complaint: abdominal pain Severity scale (0 -10): 10 - Related Data Previous Rx's Medication Instructions Recorded Last Taken Type ALBUTEROL Inhaler (OR & NICU) 2 puff IH QID PRN #1 inhalation 03/02/18 03/12/18 Rx [ProAir HFA Inhaler] Promethazine [Phenergan TAB] 25 mg PO Q6HR PRN #20 tab 03/02/18 03/13/18 Rx Acetaminophen [Tylenol Arthritis] 650 mg PO Q6HR PRN #30 tablet.er 04/26/18 Unknown Rx Azithromycin [Zithromax Tri-Aguilar] 500 mg PO QDAY #5 tablet 04/26/18 Unknown Rx metroNIDAZOLE [Flagyl] 500 mg PO Q8HR #15 tablet 04/26/18 Unknown Rx Fluticasone [Flonase] 1 spray NS QDAY #1 bottle 06/22/18 Unknown Rx Pseudoephedrine ER [Sudafed 12 Hr] 120 mg PO BID #10 tablet.er 06/22/18 Unknown Rx oxyCODONE /ACETAMINOPHEN [Percocet 1 tab PO Q6H PRN #10 tablet 06/22/18 Unknown Rx 5/325 mg] Acetaminophen [Acetaminophen TAB] 650 mg PO Q6HR PRN #20 tablet 07/09/18 Unknown Rx Dicyclomine [Bentyl] 10 mg PO QID PRN #15 capsule 07/09/18 Unknown Rx Metoclopramide [Reglan TAB] 10 mg PO QID PRN #30 tablet 07/09/18 Unknown Rx Potassium Chloride [Klor-Con] 20 meq PO QDAY #7 packet 07/09/18 Unknown Rx Promethazine [Phenergan SUPPOS] 50 mg VA Q6H PRN #20 supp.rect 07/09/18 Unknown Rx Allergies Allergy/AdvReac Type Severity Reaction Status Date / Time levofloxacin [From Levaquin] Allergy Rash Verified 11/20/16 07:17 morphine Allergy Rash Verified 11/20/16 07:17 ibuprofen [From Motrin] AdvReac Bleeding Verified 03/02/18 02:49 ED Review of Systems ROS: Stated complaint: STOMACH PAIN RECTAL BLEEDING Other details as noted in HPI Comment: All other systems reviewed and negative Constitutional: denies: chills, fever Respiratory: denies: cough, orthopnea, shortness of breath, SOB with exertion, SOB at rest, wheezing Cardiovascular: denies: chest pain, palpitations Gastrointestinal: abdominal pain, nausea, vomiting, hematochezia. denies: diarrhea, constipation, hematemesis, melena Musculoskeletal: denies: back pain Skin: denies: rash Neurological: denies: headache, weakness, numbness, paresthesias ED Past Medical Hx - Past Medical History Hx Hypertension: Yes (2014) Hx Congestive Heart Failure: No Hx Sickle Cell Disease: Yes (TRAIT) Hx Arthritis: Yes (2011 RA) Hx Asthma: Yes (last since child [place], reports hx of bronchitis) Hx COPD: No Additional medical history: crohns. esophageal Ca-tumor removed-05/2019 - Surgical History Additional Surgical History: tubal ligation in September 2014, tonsillectomy and adenoidectomy - Social History Smoking Status: Current Some Day Smoker Substance Use Type: None - Medications Home Medications: Home Medications Medication Instructions Recorded Confirmed Last Taken Type ALBUTEROL Inhaler (OR & NICU) 2 puff IH QID PRN #1 inhalation 03/02/18 03/13/18 03/12/18 Rx [ProAir HFA Inhaler] Promethazine [Phenergan TAB] 25 mg PO Q6HR PRN #20 tab 03/02/18 03/13/18 03/13/18 Rx Acetaminophen [Tylenol Arthritis] 650 mg PO Q6HR PRN #30 tablet.er 04/26/18 Unknown Rx Azithromycin [Zithromax Tri-Aguilar] 500 mg PO QDAY #5 tablet 04/26/18 Unknown Rx metroNIDAZOLE [Flagyl] 500 mg PO Q8HR #15 tablet 04/26/18 Unknown Rx Fluticasone [Flonase] 1 spray NS QDAY #1 bottle 06/22/18 Unknown Rx Pseudoephedrine ER [Sudafed 12 Hr] 120 mg PO BID #10 tablet.er 06/22/18 Unknown Rx oxyCODONE /ACETAMINOPHEN [Percocet 1 tab PO Q6H PRN #10 tablet 06/22/18 Unknown Rx 5/325 mg] Acetaminophen [Acetaminophen TAB] 650 mg PO Q6HR PRN #20 tablet 07/09/18 Unknown Rx Dicyclomine [Bentyl] 10 mg PO QID PRN #15 capsule 07/09/18 Unknown Rx Metoclopramide [Reglan TAB] 10 mg PO QID PRN #30 tablet 07/09/18 Unknown Rx Potassium Chloride [Klor-Con] 20 meq PO QDAY #7 packet 07/09/18 Unknown Rx Promethazine [Phenergan SUPPOS] 50 mg VA Q6H PRN #20 supp.rect 07/09/18 Unknown Rx ED Physical Exam - General Limitations: No Limitations General appearance: alert, in no apparent distress - Head Head exam: Present: atraumatic, normocephalic, normal inspection - Eye Eye exam: Present: normal appearance, PERRL - ENT ENT exam: Present: normal exam, normal orophraynx, mucous membranes moist - Neck Neck exam: Present: normal inspection, full ROM. Absent: tenderness, meningismus, lymphadenopathy, thyromegaly - Respiratory Respiratory exam: Present: normal lung sounds bilaterally. Absent: respiratory distress, wheezes, rales, rhonchi, chest wall tenderness, accessory muscle use, decreased breath sounds, prolonged expiratory - Cardiovascular Cardiovascular Exam: Present: regular rate, normal rhythm, normal heart sounds - GI/Abdominal GI/Abdominal exam: Present: soft, normal bowel sounds. Absent: distended, te nderness, guarding, rebound, rigid, organomegaly, mass, bruit, pulsatile mass, hernia - Extremities Exam Extremities exam: Present: normal inspection, full ROM, normal capillary refill. Absent: pedal edema, calf tenderness - Back Exam Back exam: Present: normal inspection, full ROM. Absent: tenderness, CVA tenderness (R), CVA tenderness (L), muscle spasm, paraspinal tenderness, vertebral tenderness - Neurological Exam Neurological exam: Present: alert, oriented X3, CN II-XII intact, normal gait, reflexes normal - Psychiatric Psychiatric exam: Present: normal affect, normal mood, anxious. Absent: agitated - Skin Skin exam: Present: warm, intact, normal color ED Course Vital Signs 07/27/18 07/27/18 07/28/18 22:15 22:41 00:44 Temperature 98.3 F 98.5 F Pulse Rate 69 70 Respiratory 18 18 Rate Blood Pressure 135/88 135/80 O2 Sat by Pulse 100 100 100 Oximetry 07/28/18 07/28/18 00:45 01:04 Temperature Pulse Rate 66 Respiratory 9 L 18 Rate Blood Pressure O2 Sat by Pulse 100 100 Oximetry ED Medical Decision Making - Lab Data Result diagrams: 07/27/18 22:55 07/27/18 22:55 - Medical Decision Making Patient is 28 years old female with history of Crohn's disease and narcotic seeking behavior. Patient presented to the ER complaining of abdominal pain, crampy in nature associated with blood in the stool, nausea and vomiting. I reviewed patient medical records from last admission. Patient was seen by Dr. Spangler from gastroenterology. Patient denied any fever or chills. Labs reviewed. Patient had a CT abdomen and pelvis exam on June 222018 which is negative for acute finding. Patient vital signs stable. I will start patient on prednisone and advised to follow-up with his Dr. Spangler, gastroenterology in the next 2-3 days. Critical care attestation.: If time is entered above; I have spent that time in minutes in the direct care of this critically ill patient, excluding procedure time. ED Disposition Clinical Impression: Exacerbation of Crohn's disease, Abdominal pain Disposition: -01 TO HOME OR SELFCARE Is pt being admited?: No Condition: Stable Instructions: Abdominal Pain (ED), Crohn Disease (ED) Referrals: IRLANDA CHRIS MD [Staff Physician] - 3-5 Days
[2018-07-28 02:22] VITALS: BP 131/74
== END 2018-07-28 02:22 | disposition home or self-care (01) ==
LOC: ED 21:48
DX: K50.90 Crohn's disease, unspecified, without complications (principal); I10 Essential (primary) hypertension; J45.909 Unspecified asthma, uncomplicated; F17.200 Nicotine dependence, unspecified, uncomplicated; D57.3 Sickle-cell trait; Z98.51 Tubal ligation status; Z90.89 Acquired absence of other organs; Z79.899 Other long term (current) drug therapy; Z88.1 Allergy status to other antibiotic agents; Z88.6 Allergy status to analgesic agent
CPT/HCPCS: 36415; 80053; 83690; 85025; 85610; 85730; 86850; 86900; 86901; 93005; 93010

== ENCOUNTER 2018-11-15 12:22 | Emergency (ER) | payer OTHER ==
--- NOTE | 2018-11-15 13:33 | Event Note ---
ED Screening Note Date of service: 11/15/18 Time: 13:32 ED Screening Note: 28 y/o female c/o severe abd pain with tarry blood in stool. hx/o of chrons disease. This initial assessment/diagnostic orders/clinical plan/treatment(s) is/are subject to change based on patients health status, clinical progression and re- assessment by fellow clinical providers in the ED. Further treatment and workup at subsequent clinical providers discretion. Patient/guardian urged not to elope from the ED as their condition may be serious if not clinically assessed and managed. Initial orders include:
[2018-11-15 13:57] LABS: Bilirubin,Urine NEG (Negative); Blood,Urine NEG (Negative); Color,Urine Colorless (Yellow); Protein,Urine <15 mg/dL mg/dL (Negative); Urobilinogen,Urine < 2.0 mg/dL (<2.0)
[2018-11-15] MEDS ORDERED: DILAUDID IV ONE ×2 (14:44→16:49)
[2018-11-15] MEDS ORDERED: ZOFRAN IV ONE (14:44)
[2018-11-15] MEDS ORDERED: NACL 0.9% 1000 ML 1,000 ML IV ONE (14:44)
[2018-11-15 15:06] LABS: Alanine Aminotransferase 6 units/L (7-56); Albumin 3.7 g/dL (3.9-5); BUN/Creatinine Ratio 22; Blood Urea Nitrogen 13 mg/dL (7-17); Calcium 8.8 mg/dL (8.4-10.2); Hemolysis Index 20
[2018-11-15 15:11] LABS: Basophils # (Auto) 0.1 K/mm3 (0.0-0.1); Basophils % (Auto) 1.4 % (0.0-1.8); Eosinophils # (Auto) 0.2 K/mm3 (0.0-0.4); Eosinophils % (Auto) 3.5 % (0.0-4.3); Hematocrit 33.9 % (30.3-42.9); Hemoglobin 11.3 gm/dl (10.1-14.3); Lymphocytes # (Auto) 1.8 K/mm3 (1.2-5.4); Lymphocytes % (Auto) 36.5 % (13.4-35.0); Mean Corpuscular HGB Conc 33 % (30-34); Mean Corpuscular Volume 93 fl (79-97); Monocytes # (Auto) 0.3 K/mm3 (0.0-0.8); Monocytes % (Auto) 7.1 % (0.0-7.3); Platelet Count 219 K/mm3 (140-440); Red Blood Count 3.66 M/mm3 (3.65-5.03); Red Cell Distribution Width 13.7 % (13.2-15.2)
--- NOTE | 2018-11-15 15:56 | Emergency Department Report ---
ED Abdominal Pain HPI - General Chief Complaint: Nausea/Vomiting/Diarrhea Stated Complaint: ABD PAIN/VOMITING Time Seen by Provider: 11/15/18 14:43 Source: patient Mode of arrival: Ambulatory Limitations: No Limitations - History of Present Illness Initial Comments: This is a 28-year-old female nontoxic, well nourished in appearance, no acute signs of distress presents to the ED with c/o of nausea and vomiting and abdominal pain 1 day. Patient also stated has diarrhea with mixed blood. Patient stated has history of Crohn's disease and symptoms of flareup is similar. Patient describes vomiting as food content and yellow gastric acid. Patient describes abdominal pain as cramping and aching with level of 3/10 diffuse. Patient denies chest pain, short of breath, fever, chills, headache, stiff neck, numbness or tingling. Patient denies any constipation. Patient denies any recent travels. Patient stated allergies to morphine, NSAIDs and Le vofloxacin. Stated had normal colonoscopy last year. MD Complaint: abdominal pain -: days(s) (1) Location: diffuse Radiation: none Migration to: no migration Severity: mild Severity scale (0 -10): 3 Quality: cramping, aching Consistency: constant Improves With: nothing Worsens With: nothing Associated Symptoms: nausea, vomiting, diarrhea, hematochezia. denies: fever, chills, constipation, dysuria, hematemesis, melena, hematuria, anorexia, syncope - Related Data Previous Rx's Medication Instructions Recorded Last Taken Type ALBUTEROL Inhaler (OR & NICU) 2 puff IH QID PRN #1 inhalation 03/02/18 03/12/18 Rx [ProAir HFA Inhaler] Promethazine [Phenergan] 25 mg PO Q6HR PRN #20 tab 03/02/18 03/13/18 Rx Acetaminophen [Tylenol Arthritis] 650 mg PO Q6HR PRN #30 tablet.er 04/26/18 Unknown Rx Azithromycin [Zithromax Tri-Aguilar] 500 mg PO QDAY #5 tablet 04/26/18 Unknown Rx metroNIDAZOLE [Flagyl] 500 mg PO Q8HR #15 tablet 04/26/18 Unknown Rx Fluticasone [Flonase] 1 spray NS QDAY #1 bottle 06/22/18 Unknown Rx Pseudoephedrine ER [Sudafed 12 Hr] 120 mg PO BID #10 tablet.er 06/22/18 Unknown Rx oxyCODONE /ACETAMINOPHEN [Percocet 1 tab PO Q6H PRN #10 tablet 06/22/18 Unknown Rx 5/325 mg] Acetaminophen [Acetaminophen TAB] 650 mg PO Q6HR PRN #20 tablet 07/09/18 Unknown Rx Dicyclomine [Bentyl] 10 mg PO QID PRN #15 capsule 07/09/18 Unknown Rx Metoclopramide [Reglan TAB] 10 mg PO QID PRN #30 tablet 07/09/18 Unknown Rx Potassium Chloride [Klor-Con] 20 meq PO QDAY #7 packet 07/09/18 Unknown Rx Promethazine [Phenergan SUPPOS] 50 mg MS Q6H PRN #20 supp.rect 07/09/18 Unknown Rx Acetaminophen [Tylenol Extra 500 mg PO QID #30 tablet 07/28/18 Unknown Rx Strength] Ondansetron [Zofran Odt] 4 mg PO Q8HR PRN #14 tab.rapdis 07/28/18 Unknown Rx Prednisone [predniSONE 10 mg 10 mg PO .TAPER #1 tab.ds.pk 07/28/18 Unknown Rx (6-Day Pack, 21 Tabs)] Acetaminophen/Codeine [Tylenol 1 tab PO Q6H PRN #12 tab 11/15/18 Unknown Rx /Codeine # 3 tab] Ondansetron [Zofran Odt] 4 mg PO Q8HR PRN #20 tab.rapdis 11/15/18 Unknown Rx Sulfamethoxazole/Trimethoprim 1 each PO BID #14 tablet 11/15/18 Unknown Rx [Bactrim DS TAB] metroNIDAZOLE [Flagyl] 500 mg PO Q8HR #21 tablet 11/15/18 Unknown Rx Allergies Allergy/AdvReac Type Severity Reaction Status Date / Time levofloxacin [From Levaquin] Allergy Rash Verified 11/15/18 12:25 morphine Allergy Rash Verified 11/15/18 12:25 ibuprofen [From Motrin] AdvReac Bleeding Verified 11/15/18 12:25 ED Review of Systems ROS: Stated complaint: ABD PAIN/VOMITING Other details as noted in HPI Constitutional: denies: chills, fever Eyes: denies: eye pain, eye discharge, vision change ENT: denies: ear pain, throat pain Respiratory: denies: cough, shortness of breath, wheezing Cardiovascular: denies: chest pain, palpitations Endocrine: no symptoms reported Gastrointestinal: abdominal pain, nausea, vomiting, diarrhea, hematochezia. denies: constipation, hematemesis, melena Genitourinary: denies: urgency, dysuria, discharge Musculoskeletal: denies: back pain, joint swelling, arthralgia Skin: denies: rash, lesions Neurological: denies: headache, weakness, paresthesias Psychiatric: denies: anxiety, depression Hematological/Lymphatic: denies: easy bleeding, easy bruising ED Past Medical Hx - Past Medical History Hx Hypertension: Yes (2014) Hx Congestive Heart Failure: No Hx Sickle Cell Disease: Yes (TRAIT) Hx Arthritis: Yes (2011 RA) Hx Asthma: Yes (last since child [place], reports hx of bronchitis) Hx COPD: No Additional medical history: crohns. esophageal Ca-tumor removed-05/2019 - Surgical History Additional Surgical History: tubal ligation in September 2014, tonsillectomy and adenoidectomy - Social History Smoking Status: Never Smoker Substance Use Type: None - Medications Home Medications: Home Medications Medication Instructions Recorded Confirmed Last Taken Type ALBUTEROL Inhaler (OR & NICU) 2 puff IH QID PRN #1 inhalation 03/02/18 03/13/18 03/12/18 Rx [ProAir HFA Inhaler] Promethazine [Phenergan] 25 mg PO Q6HR PRN #20 tab 03/02/18 03/13/18 03/13/18 Rx Acetaminophen [Tylenol Arthritis] 650 mg PO Q6HR PRN #30 tablet.er 04/26/18 Unknown Rx Azithromycin [Zithromax Tri-Aguilar] 500 mg PO QDAY #5 tablet 04/26/18 Unknown Rx metroNIDAZOLE [Flagyl] 500 mg PO Q8HR #15 tablet 04/26/18 Unknown Rx Fluticasone [Flonase] 1 spray NS QDAY #1 bottle 06/22/18 Unknown Rx Pseudoephedrine ER [Sudafed 12 Hr] 120 mg PO BID #10 tablet.er 06/22/18 Unknown Rx oxyCODONE /ACETAMINOPHEN [Percocet 1 tab PO Q6H PRN #10 tablet 06/22/18 Unknown Rx 5/325 mg] Acetaminophen [Acetaminophen TAB] 650 mg PO Q6HR PRN #20 tablet 07/09/18 Unknown Rx Dicyclomine [Bentyl] 10 mg PO QID PRN #15 capsule 07/09/18 Unknown Rx Metoclopramide [Reglan TAB] 10 mg PO QID PRN #30 tablet 07/09/18 Unknown Rx Potassium Chloride [Klor-Con] 20 meq PO QDAY #7 packet 07/09/18 Unknown Rx Promethazine [Phenergan SUPPOS] 50 mg MS Q6H PRN #20 supp.rect 07/09/18 Unknown Rx Acetaminophen [Tylenol Extra 500 mg PO QID #30 tablet 07/28/18 Unknown Rx Strength] Ondansetron [Zofran Odt] 4 mg PO Q8HR PRN #14 tab.rapdis 07/28/18 Unknown Rx Prednisone [predniSONE 10 mg 10 mg PO .TAPER #1 tab.ds.pk 07/28/18 Unknown Rx (6-Day Pack, 21 Tabs)] Acetaminophen/Codeine [Tylenol 1 tab PO Q6H PRN #12 tab 11/15/18 Unknown Rx /Codeine # 3 tab] Ondansetron [Zofran Odt] 4 mg PO Q8HR PRN #20 tab.rapdis 11/15/18 Unknown Rx Sulfamethoxazole/Trimethoprim 1 each PO BID #14 tablet 11/15/18 Unknown Rx [Bactrim DS TAB] metroNIDAZOLE [Flagyl] 500 mg PO Q8HR #21 tablet 11/15/18 Unknown Rx ED Physical Exam - General Limitations: No Limitations General appearance: alert, in no apparent distress - Head Head exam: Present: atraumatic, normocephalic - Eye Eye exam: Present: normal appearance - Neck Neck exam: Present: normal inspection, full ROM. Absent: tenderness, meningismus, lymphadenopathy - Respiratory Respiratory exam: Present: normal lung sounds bilaterally. Absent: respiratory distress, wheezes, rales, rhonchi, stridor, chest wall tenderness, accessory muscle use, decreased breath sounds, prolonged expiratory - Cardiovascular Cardiovascular Exam: Present: regular rate, normal rhythm, normal heart sounds. Absent: bradycardia, tachycardia, irregular rhythm, systolic murmur, diastolic murmur, rubs, gallop - GI/Abdominal GI/Abdominal exam: Present: soft, tenderness (diffuse), normal bowel sounds. Absent: distended, guarding, rebound, rigid, diminished bowel sounds - Expanded GI/Abdominal Exam Expanded GI/Abdominal exam: Absent: psoas sign, Chaney's sign, Rovsing's sign, tenderness at [place], ascites - Rectal Rectal exam: Present: normal inspection, normal rectal tone, heme (+) stool, other (land economist Rosina LATHAM present during exam). Absent: decreased rectal tone, heme (-) stool, black stool, bloody stool, fecal impaction, hemorrhoids, mass, tenderness - Extremities Exam Extremities exam: Present: normal inspection, full ROM, normal capillary refill - Back Exam Back exam: Present: normal inspection, full ROM. Absent: tenderness, CVA tenderness (R), CVA tenderness (L), muscle spasm, paraspinal tenderness, vertebr al tenderness, rash noted - Neurological Exam Neurological exam: Present: alert, oriented X3, normal gait - Psychiatric Psychiatric exam: Present: normal affect, normal mood - Skin Skin exam: Present: warm, dry, intact, normal color. Absent: rash ED Course Vital Signs 11/15/18 11/15/18 13:29 17:36 Temperature 98.5 F 98.6 F Pulse Rate 87 66 Respiratory 18 16 Rate Blood Pressure 139/82 Blood Pressure 133/86 [Left] O2 Sat by Pulse 100 100 Oximetry - Reevaluation(s) Reevaluation #1: 11/15/18 15:55 Patient is speaking in full sentences with no signs of distress noted. ED Medical Decision Making - Lab Data Result diagrams: 11/15/18 14:21 11/15/18 14:21 - Medical Decision Making This is a 28-year-old female that presents with abdominal pain, nausea vomiting, and blood in stool. Condition stable was examined by me. There was a normal rectal exam noted. Labs obtained and are unremarkable with normal H&H. Urine is unremarkable. CT scan of abdomen has been obtained with contrast and dictated by radiologist within normal limits. Patient is notified of the CT results with her questions noted by the patient. Symptoms of GI bleed may be related to Crohn's flareup. Vital signs are unremarkable. Patient was given strict instructions that he must follow-up with a rn intensive care unit for a colonoscopy. Patient is stable to be discharged at this time. Patient was instructed to Follow-up with a primary care/rn intensive care unit doctor in 3-5 days or if symptoms worsen and continue return to emergency room as soon as possible. At time of discharge, the patient does not seem toxic or ill in appearance. No acute signs of distress noted. Patient agrees to discharge treatment plan of care. No further questions noted by the patient. Critical care attestation.: If time is entered above; I have spent that time in minutes in the direct care of this critically ill patient, excluding procedure time. ED Disposition Clinical Impression: Abdominal pain Qualifiers: Abdominal location: generalized Qualified Code(s): R10.84 - Generalized abd ominal pain Diarrhea Qualifiers: Diarrhea type: unspecified type Qualified Code(s): R19.7 - Diarrhea, unspecified Nausea & vomiting Qualifiers: Vomiting type: unspecified Vomiting Intractability: non-intractable Qualified Code(s): R11.2 - Nausea with vomiting, unspecified Disposition: TO HOME OR SELFCARE Is pt being admited?: No Does the pt Need Aspirin: No Condition: Stable Instructions: Acute Abdominal Pain (ED), Acute Nausea and Vomiting (ED) Additional Instructions: Follow-up with a primary care/rn intensive care unit doctor in 3-5 days or if symptoms worsen and continue return to emergency room as soon as possible. Prescriptions: Sulfamethoxazole/Trimethoprim [Bactrim DS TAB] 1 each PO BID #14 tablet metroNIDAZOLE [Flagyl] 500 mg PO Q8HR #21 tablet Acetaminophen/Codeine [Tylenol /Codeine # 3 tab] 1 tab PO Q6H PRN #12 tab PRN Reason: Pain , Severe (7-10) Ondansetron [Zofran Odt] 4 mg PO Q8HR PRN #20 tab.rapdis PRN Reason: Nausea Referrals: [facility]– [place] [Outside] - 3-5 Days [facility] [Provider Group] - 2-3 Days [facility] [Outside] - 3-5 Days JORDIN BABCOCK MD [Staff Physician] - 2-3 Days SHERLY HOLLIS MD [Primary Care Provider] - 2-3 Days FREDA SANCHEZ MD [Referring] - 2-3 Days Forms: Work/School Release Form(ED)
--- NOTE | 2018-11-15 16:21 | Cat Scan Report ---
PROCEDURE: CT ABDOMEN PELVIS W CON TECHNIQUE: Computerized axial tomography of the abdomen and pelvis was performed after the IV inject ion of iodinated nonionic contrast. CT DOSE LENGTH PRODUCT: 1204.3 mGycm HISTORY: severe abd pain COMPARISONS: 06/21/2018 . FINDINGS: Visualized lower thorax: No significant abnormality. Liver: Normal size and attenuation. Spleen: Normal size and attenuation. Gallbladder and biliary system: Normal. Pancreas: Normal. Adrenals: Normal. Kidneys: Normal. GI tract: No bowel obstruction or inflammation. No appendiceal inflammation. Lymph nodes and mesentery: Normal. Vasculature: Normal.. Bladder: Normal. Reproductive organs: Normal. Peritoneum: No free fluid. Musculoskeletal structures: No significant abnormality. Other: None. IMPRESSION: No acute abnormality is identified. This document is electronically signed by Layne Gudino MD., November 15 2018 04:19:16 PM ET
[2018-11-15 17:37] VITALS: BP 133/86
== END 2018-11-15 18:09 | disposition home or self-care (01) ==
LOC: ED 12:22
DX: R10.84 Generalized abdominal pain (principal); R19.7 Diarrhea, unspecified; R11.2 Nausea with vomiting, unspecified; I10 Essential (primary) hypertension; M06.9 Rheumatoid arthritis, unspecified; J45.909 Unspecified asthma, uncomplicated; Z98.51 Tubal ligation status; Z85.01 Personal history of malignant neoplasm of esophagus
CPT/HCPCS: 36415; 74177; 80053; 81001; 83690; 84703; 85025; 96361; 96374; 96375; 96376; 99284; J1170; J2405; J7030; Q9967

== ENCOUNTER 2018-12-19 21:56 | Inpatient (IN) | payer OTHER ==
--- NOTE | 2018-12-19 22:36 | Event Note ---
ED Screening Note Date of service: 12/19/18 Time: 22:32 ED Screening Note: 28 y/o female comes in for headache epigastric pain, bodyaches, nausea and vomiting since Friday. History of Crohn's. This initial assessment/diagnostic orders/clinical plan/treatment(s) is/are subject to change based on patients health status, clinical progression and re- assessment by fellow clinical providers in the ED. Further treatment and workup at subsequent clinical providers discretion. Patient/guardian urged not to elope from the ED as their condition may be serious if not clinically assessed and managed. Initial orders include:
[2018-12-19 23:48] LABS: Hematocrit 35.7 % (30.3-42.9); Hemoglobin 11.8 gm/dl (10.1-14.3); Mean Corpuscular HGB Conc 33 % (30-34); Mean Corpuscular Hemoglobin 30 pg (28-32); Mean Corpuscular Volume 91 fl (79-97); Platelet Count 174 K/mm3 (140-440); Red Blood Count 3.91 M/mm3 (3.65-5.03)
[2018-12-19] MEDS ORDERED: ZOFRAN IV ONE (23:55)
[2018-12-19] MEDS ORDERED: MORPHINE IV ONE (23:55)
[2018-12-20 00:02] LABS: Alanine Aminotransferase 42 units/L (7-56); Albumin 3.8 g/dL (3.9-5); BUN/Creatinine Ratio 20; Blood Urea Nitrogen 12 mg/dL (7-17); Calcium 8.6 mg/dL (8.4-10.2); Hemolysis Index 23; Lipase 43 units/L (13-60)
--- NOTE | 2018-12-20 00:05 | Emergency Department Report ---
ED General Adult HPI - General Chief complaint: Abdominal Pain Stated complaint: FEVER Time Seen by Provider: 12/19/18 23:34 Source: patient Mode of arrival: Wheelchair Limitations: No Limitations - History of Present Illness Initial comments: 28-year-old female with a history of Crohn's disease presents with the complaint of abdominal pain. Patient states he has abdominal pain right upper and left upper quadrant. Patient also complains of diffuse body pain. Patient states that she has had intermittent vomiting but has been able to tolerate Tylenol. Patient has had no diarrhea. Patient denies any hematochezia or hematemesis. Patient states on Friday she went to the ER because she started having a migraine and then vomited states that it she was told it may be a viral process and was seen at the ER at the [facility] where she was discharged. Patient also had a CAT scan of her abdomen and pelvis which she was told was negative at that time. Patient states that prior to going to the Medical she had had a headache she had a flu swab for that was negative. Patient states that his headache has persisted despite her Tylenol with Codeine therapy. Patient states that she's also had some neck pain and neck stiffness. Patient states that she is concerned for potential meningitis and thus presented here for this evaluation as well. Severity scale (0 -10): 7 - Related Data Previous Rx's Medication Instructions Recorded Last Taken Type ALBUTEROL Inhaler (OR & NICU) 2 puff IH QID PRN #1 inhalation 03/02/18 03/12/18 Rx [ProAir HFA Inhaler] Promethazine [Phenergan] 25 mg PO Q6HR PRN #20 tab 03/02/18 03/13/18 Rx Acetaminophen [Tylenol Arthritis] 650 mg PO Q6HR PRN #30 tablet.er 04/26/18 Unknown Rx Azithromycin [Zithromax Tri-Aguilar] 500 mg PO QDAY #5 tablet 04/26/18 Unknown Rx metroNIDAZOLE [Flagyl] 500 mg PO Q8HR #15 tablet 04/26/18 Unknown Rx Fluticasone [Flonase] 1 spray NS QDAY #1 bottle 06/22/18 Unknown Rx Pseudoephedrine ER [Sudafed 12 Hr] 120 mg PO BID #10 tablet.er 06/22/18 Unknown Rx oxyCODONE /ACETAMINOPHEN [Percocet 1 tab PO Q6H PRN #10 tablet 06/22/18 Unknown Rx 5/325 mg] Acetaminophen [Acetaminophen TAB] 650 mg PO Q6HR PRN #20 tablet 07/09/18 Unknown Rx Dicyclomine [Bentyl] 10 mg PO QID PRN #15 capsule 07/09/18 Unknown Rx Metoclopramide [Reglan TAB] 10 mg PO QID PRN #30 tablet 07/09/18 Unknown Rx Potassium Chloride [Klor-Con] 20 meq PO QDAY #7 packet 07/09/18 Unknown Rx Promethazine [Phenergan SUPPOS] 50 mg [place] Q6H PRN #20 supp.rect 07/09/18 Unknown Rx Acetaminophen [Tylenol Extra 500 mg PO QID #30 tablet 07/28/18 Unknown Rx Strength] Ondansetron [Zofran Odt] 4 mg PO Q8HR PRN #14 tab.rapdis 07/28/18 Unknown Rx Prednisone [predniSONE 10 mg 10 mg PO .TAPER #1 tab.ds.pk 07/28/18 Unknown Rx (6-Day Pack, 21 Tabs)] Acetaminophen/Codeine [Tylenol 1 tab PO Q6H PRN #12 tab 11/15/18 Unknown Rx /Codeine # 3 tab] Ondansetron [Zofran Odt] 4 mg PO Q8HR PRN #20 tab.rapdis 11/15/18 Unknown Rx Sulfamethoxazole/Trimethoprim 1 each PO BID #14 tablet 11/15/18 Unknown Rx [Bactrim DS TAB] metroNIDAZOLE [Flagyl] 500 mg PO Q8HR #21 tablet 11/15/18 Unknown Rx Allergies Allergy/AdvReac Type Severity Reaction Status Date / Time dicyclomine [From Bentyl] Allergy Hives Verified 12/19/18 22:35 levofloxacin [From Levaquin] Allergy Rash Verified 11/15/18 12:25 morphine Allergy Rash Verified 11/15/18 12:25 ibuprofen [From Motrin] AdvReac Bleeding Verified 11/15/18 12:25 ED Review of Systems ROS: Stated complaint: FEVER Other details as noted in HPI Constitutional: malaise, other (fatigue). denies: chills, fever Eyes: denies: eye pain, eye discharge, vision change ENT: denies: ear pain, throat pain Respiratory: denies: cough, shortness of breath, wheezing Cardiovascular: denies: chest pain, palpitations Endocrine: no symptoms reported Gastrointestinal: abdominal pain, nausea, vomiting Genitourinary: denies: urgency, dysuria, discharge Musculoskeletal: denies: back pain, joint swelling, arthralgia Skin: denies: rash, lesions Neurological: denies: headache, weakness, paresthesias Psychiatric: denies: anxiety, depression Hematological/Lymphatic: denies: easy bleeding, easy bruising ED Past Medical Hx - Past Medical History Hx Hypertension: Yes (2014) Hx Congestive Heart Failure: No Hx Sickle Cell Disease: Yes (TRAIT) Hx Arthritis: Yes (2011 RA) Hx Asthma: Yes (last since child [place], reports hx of bronchitis) Hx COPD: No Additional medical history: crohns. esophageal Ca-tumor removed-05/2019 - Surgical History Past Surgical History?: Yes Additional Surgical History: tubal ligation in September 2014, tonsillectomy and adenoidectomy - Social History Smoking Status: Never Smoker Substance Use Type: None - Medications Home Medications: Home Medications Medication Instructions Recorded Confirmed Last Taken Type ALBUTEROL Inhaler (OR & NICU) 2 puff IH QID PRN #1 inhalation 03/02/18 03/13/18 03/12/18 Rx [ProAir HFA Inhaler] Promethazine [Phenergan] 25 mg PO Q6HR PRN #20 tab 03/02/18 03/13/18 03/13/18 Rx Acetaminophen [Tylenol Arthritis] 650 mg PO Q6HR PRN #30 tablet.er 04/26/18 Unknown Rx Azithromycin [Zithromax Tri-Aguilar] 500 mg PO QDAY #5 tablet 04/26/18 Unknown Rx metroNIDAZOLE [Flagyl] 500 mg PO Q8HR #15 tablet 04/26/18 Unknown Rx Fluticasone [Flonase] 1 spray NS QDAY #1 bottle 06/22/18 Unknown Rx Pseudoephedrine ER [Sudafed 12 Hr] 120 mg PO BID #10 tablet.er 06/22/18 Unknown Rx oxyCODONE /ACETAMINOPHEN [Percocet 1 tab PO Q6H PRN #10 tablet 06/22/18 Unknown Rx 5/325 mg] Acetaminophen [Acetaminophen TAB] 650 mg PO Q6HR PRN #20 tablet 07/09/18 Unknown Rx Dicyclomine [Bentyl] 10 mg PO QID PRN #15 capsule 07/09/18 Unknown Rx Metoclopramide [Reglan TAB] 10 mg PO QID PRN #30 tablet 07/09/18 Unknown Rx Potassium Chloride [Klor-Con] 20 meq PO QDAY #7 packet 07/09/18 Unknown Rx Promethazine [Phenergan SUPPOS] 50 mg [place] Q6H PRN #20 supp.rect 07/09/18 Unknown Rx Acetaminophen [Tylenol Extra 500 mg PO QID #30 tablet 07/28/18 Unknown Rx Strength] Ondansetron [Zofran Odt] 4 mg PO Q8HR PRN #14 tab.rapdis 07/28/18 Unknown Rx Prednisone [predniSONE 10 mg 10 mg PO .TAPER #1 tab.ds.pk 07/28/18 Unknown Rx (6-Day Pack, 21 Tabs)] Acetaminophen/Codeine [Tylenol 1 tab PO Q6H PRN #12 tab 11/15/18 Unknown Rx /Codeine # 3 tab] Ondansetron [Zofran Odt] 4 mg PO Q8HR PRN #20 tab.rapdis 11/15/18 Unknown Rx Sulfamethoxazole/Trimethoprim 1 each PO BID #14 tablet 11/15/18 Unknown Rx [Bactrim DS TAB] metroNIDAZOLE [Flagyl] 500 mg PO Q8HR #21 tablet 11/15/18 Unknown Rx ED Physical Exam - General Limitations: No Limitations General appearance: alert, other (mildly uncomfortable; ) - Head Head exam: Present: atraumatic, normocephalic - Eye Eye exam: Present: normal appearance - ENT ENT exam: Present: mucous membranes dry - Neck Neck exam: Present: normal inspection, other (negative Kernig's; negative Brudzinski sign) - Respiratory Respiratory exam: Present: normal lung sounds bilaterally. Absent: respiratory distress - Cardiovascular Cardiovascular Exam: Present: regular rate, normal rhythm. Absent: systolic murmur, diastolic murmur, rubs, gallop - GI/Abdominal GI/Abdominal exam: Present: soft, tenderness (diffuse tenderness ), normal bowel sounds. Absent: guarding, rebound - Extremities Exam Extremities exam: Present: normal inspection - Back Exam Back exam: Present: normal inspection - Neurological Exam Neurological exam: Present: alert, oriented X3, CN II-XII intact - Psychiatric Psychiatric exam: Present: normal affect, normal mood - Skin Skin exam: Present: warm, dry, intact, normal color. Absent: rash ED Course Vital Signs 12/19/18 12/19/18 12/20/18 22:09 23:15 00:24 Temperature 98.9 F 98.5 F Pulse Rate 88 70 Respiratory 18 16 16 Rate Blood Pressure 130/91 Blood Pressure 122/94 [Left] O2 Sat by Pulse 100 100 Oximetry 12/20/18 12/20/18 12/20/18 00:54 01:00 02:01 Temperature Pulse Rate 64 66 Respiratory 16 13 12 Rate Blood Pressure 145/91 125/82 Blood Pressure [Left] O2 Sat by Pulse 100 100 Oximetry 12/20/18 12/20/18 12/20/18 02:28 02:58 03:00 Temperature Pulse Rate 58 L Respiratory 16 16 12 Rate Blood Pressure 115/75 Blood Pressure [Left] O2 Sat by Pulse 100 Oximetry 12/20/18 12/20/18 12/20/18 04:00 05:00 06:00 Temperature Pulse Rate 56 L 54 L 55 L Respiratory 10 L 12 12 Rate Blood Pressure 119/87 116/81 109/78 Blood Pressure [Left] O2 Sat by Pulse 100 100 99 Oximetry - Lumbar Puncture Consent Obtained: written consent Time Out Performed: Yes Indication for Procedure: headache Patient Position: Sitting Upright/Leaning F Local Anesthetic Used: Lidocaine 1% Spinal Needle Gauge: 20G Spinal Needle Length: 2in Interspace Used: L3-L4 Fluid Initially Obtained: clear Patient Tolerated Procedure: well ED Medical Decision Making - Lab Data Result diagrams: 12/19/18 23:34 12/19/18 23:34 - Medical Decision Making Patient had initial CT head which was negative. Patient was given ceftriaxone therapy 2 g on emergency department. The patient had a Gram stain which showed no microorganisms however C) 32 white cells and a concern for potential viral meningitis was raised. Patient continued to have the presence of headache despite receiving multiple doses of Dilaudid. Patient's case was discussed with hospital service patient to be admitted for continued management and treatment. - Differential Diagnosis electrolyte abnormality; Dehydration; Anemia; Critical care attestation.: If time is entered above; I have spent that time in minutes in the direct care of this critically ill patient, excluding procedure time. ED Disposition Clinical Impression: Acute headache, Viral meningitis Disposition: OP ADMIT IP TO THIS HOSP Is pt being admited?: Yes Does the pt Need Aspirin: No Condition: Stable Instructions: Abdominal Pain (ED) Referrals: EFRAÍN ZIMMERMAN MD [Primary Care Provider] - 3-5 Days Time of Disposition: 06:35
[2018-12-20] MEDS ORDERED: DILAUDID IV ONE ×3 (00:06→07:23)
[2018-12-20] MEDS ORDERED: ZOFRAN IV ONE (00:07)
[2018-12-20] MEDS ORDERED: XYLOCAINE 1% 20 mL INFILTRATI ONE (00:37)
[2018-12-20] MEDS ORDERED: ROCEPHIN/NS 2 GM/100 ML 2 GM/100 ML BAG IV ONE ×2 (00:38→02:22)
--- NOTE | 2018-12-20 02:30 | Cat Scan Report ---
CT HEAD WITHOUT CONTRAST INDICATION : Headache and dizziness. Numbness to tongue.. TECHNIQUE: Axial, coronal and sagittal CT imaging was performed from the skull apex through the skul l base without contrast. All CT scans at this location are performed using CT dose reduction for ALA RA by means of automated exposure control. COMPARISON: None available. FINDINGS: PARENCHYMA: No mass, midline shift, hemorrhage, extraaxial collection or acute territorial infarctio n. VENTRICLES: Symmetric and normal in size. SOFT TISSUES: Soft tissues including the orbits appear normal. BONES: No acute osseous abnormality. SINUSES: No significant abnormality. ADDITIONAL FINDINGS: None. IMPRESSION: No acute abnormality. Signer Name: Rigo Love MD Signed: 12/20/2018 2:25 AM Workstation Name: [id number]
[2018-12-20 03:07] LABS: Bilirubin,Urine NEG (Negative); Blood,Urine NEG (Negative); Color,Urine Straw (Yellow); Protein,Urine <15 mg/dL mg/dL (Negative); RBC,Urine < 1.0 /HPF (0.0-6.0); Urobilinogen,Urine < 2.0 mg/dL (<2.0)
[2018-12-20 03:14] LABS: HCG Qualitative,Urine Negative (Negative)
[2018-12-20 03:20] LABS: Basophils % (Manual) 0 % (0.0-1.8); Total Cells Counted 100
[2018-12-20 03:21] LABS: Anisocytosis 1+; Platelet Estimate Consistent w Auto
[2018-12-20] MEDS ORDERED: BENADRYL IV ONE (03:33)
[2018-12-20 03:47] LABS: Glucose,CSF 52 mg/dL
[2018-12-20 05:04] LABS: Appearance,CSF Hazy
[2018-12-20 05:13] LABS: Red Blood Cell,CSF 438 /mm3 (0-0); Total Cells Counted 100 /mm3; White Blood Cell,CSF 32 /mm3 (1-10)
[2018-12-20] MEDS ORDERED: NACL 0.9% IV STA (06:37)
[2018-12-20] MEDS ORDERED: ZOVIRAX IV STA (06:37)
[2018-12-20] MEDS ORDERED: VANCOMYCIN/NS 1 GM/250 ML 1 GM/250 ML BAG IV ONE (06:38)
[2018-12-20] MEDS ORDERED: VANCOMYCIN 1,250 MG in NACL 0.9% 250ML 250 ML IV ONE (07:00)
[2018-12-20] MEDS ORDERED: VANCOMYCIN 750 MG in NACL 0.9% 250ML 250 ML IV ONE (07:00)
[2018-12-20 07:07] LABS: Appearance,CSF Clear
[2018-12-20 07:20] LABS: Total Cells Counted 100 /mm3
[2018-12-20 07:21] LABS: Red Blood Cell,CSF 19 /mm3 (0-0); White Blood Cell,CSF 36 /mm3 (1-10)
[2018-12-20 07:23] LABS: Basophils CSF 0 %
--- NOTE | 2018-12-20 08:45 | History and Physical Report ---
History of Present Illness Date of examination: 12/20/18 Chief complaint: Migraine headache History of present illness: Patient was seen and examined. Follow-up on current diagnosis. No overnight events reported to me. Patient denies any chest pain, shortness breath, nausea/vomiting or severe headaches. Imaging, nursing note, chart, labs and old chart reviewed. Discussed with patient. PMH: as hpi PSH: Tubal ligation, tonsillectomy SH: Denies alcohol, tobacco, drugs FH: Hypertension ROS: Constitutional: denies: fever ENT: denies: throat or neck pain Respiratory: denies: cough, shortness of breath Cardiovascular: denies: chest pain Endocrine: denies unexplained weight loss or gain Gastrointestinal: + abdominal pain, nausea Genitourinary: denies: dysuria Rectal: denies no incontinence, no bleeding, no itching, no discharge Musculoskeletal: denies swelling, myaglia, muscle weakness Skin: denies: rash Neurological: + headache Hematological/Lymphatic: denies: easy bleeding or easy bruising Allergic/Immunologic: no urticaria, no allergic rhinitis, no anaphylaxis Psych: denies sadness or hopelessness, SI/HI Gen: WDWN, NAD, Awake, Alert, Orientated HEENT: NCAT, EOMI, PERRL, OP Clear Neck: supple, no adenopathy, no thyromegaly, no JVD CVS/Heart: RRR, normal S1S2, pulses present bilaterally Chest/Lungs: CTA B, Symmetrical chest expansion, good air entry bilaterally GI/Abdomen: soft, NTND, good bowel sounds, no guarding or rebound /Bladder: no suprapubic tenderness, no CVA or paraspinal tenderness Extermity/Skin: no c/c/e, no obvious rash MSK: FROM x 4 Neuro: CN 2-12 grossly intact, no new focal deficits Psych: calm Medications and Allergies Allergies Allergy/AdvReac Type Severity Reaction Status Date / Time dicyclomine [From Bentyl] Allergy Hives Verified 12/19/18 22:35 levofloxacin [From Levaquin] Allergy Rash Verified 11/15/18 12:25 morphine Allergy Rash Verified 11/15/18 12:25 ibuprofen [From Motrin] AdvReac Bleeding Verified 11/15/18 12:25 Home Medications Medication Instructions Recorded Confirmed Last Taken Type ALBUTEROL Inhaler (OR & NICU) 2 puff IH QID PRN #1 inhalation 03/02/18 03/13/18 03/12/18 Rx [ProAir HFA Inhaler] Promethazine [Phenergan] 25 mg PO Q6HR PRN #20 tab 03/02/18 03/13/18 03/13/18 Rx Acetaminophen [Tylenol Arthritis] 650 mg PO Q6HR PRN #30 tablet.er 04/26/18 Unknown Rx Azithromycin [Zithromax Tri-Aguilar] 500 mg PO QDAY #5 tablet 04/26/18 Unknown Rx metroNIDAZOLE [Flagyl] 500 mg PO Q8HR #15 tablet 04/26/18 Unknown Rx Fluticasone [Flonase] 1 spray NS QDAY #1 bottle 06/22/18 Unknown Rx Pseudoephedrine ER [Sudafed 12 Hr] 120 mg PO BID #10 tablet.er 06/22/18 Unknown Rx oxyCODONE /ACETAMINOPHEN [Percocet 1 tab PO Q6H PRN #10 tablet 06/22/18 Unknown Rx 5/325 mg] Acetaminophen [Acetaminophen TAB] 650 mg PO Q6HR PRN #20 tablet 07/09/18 Unknown Rx Dicyclomine [Bentyl] 10 mg PO QID PRN #15 capsule 07/09/18 Unknown Rx Metoclopramide [Reglan TAB] 10 mg PO QID PRN #30 tablet 07/09/18 Unknown Rx Potassium Chloride [Klor-Con] 20 meq PO QDAY #7 packet 07/09/18 Unknown Rx Promethazine [Phenergan SUPPOS] 50 mg [place] Q6H PRN #20 supp.rect 07/09/18 Unknown Rx Acetaminophen [Tylenol Extra 500 mg PO QID #30 tablet 07/28/18 Unknown Rx Strength] Ondansetron [Zofran Odt] 4 mg PO Q8HR PRN #14 tab.rapdis 07/28/18 Unknown Rx Prednisone [predniSONE 10 mg 10 mg PO .TAPER #1 tab.ds.pk 07/28/18 Unknown Rx (6-Day Pack, 21 Tabs)] Acetaminophen/Codeine [Tylenol 1 tab PO Q6H PRN #12 tab 11/15/18 Unknown Rx /Codeine # 3 tab] Ondansetron [Zofran Odt] 4 mg PO Q8HR PRN #20 tab.rapdis 11/15/18 Unknown Rx Sulfamethoxazole/Trimethoprim 1 each PO BID #14 tablet 11/15/18 Unknown Rx [Bactrim DS TAB] metroNIDAZOLE [Flagyl] 500 mg PO Q8HR #21 tablet 11/15/18 Unknown Rx Exam - Constitutional Vitals: Temp Pulse Resp BP Pulse Ox 98.5 F 55 L 15 109/78 99 12/19/18 23:15 12/20/18 06:00 12/20/18 07:27 12/20/18 06:00 12/20/18 06:00 Results - Labs CBC & Chem 7: 12/19/18 23:34 12/19/18 23:34 Labs: Abnormal lab results 12/19/18 12/19/18 Range/Units 23:34 23:34 WBC 3.4 L (4.5-11.0) K/mm3 RDW 13.0 L (13.2-15.2) % Seg Neuts % (Manual) 27.0 L (40.0-70.0) % Lymphocytes % (Manual) 56.0 H (13.4-35.0) % Monocytes % (Manual) 15.0 H (0.0-7.3) % Seg Neutrophils # Man 0.9 L (1.8-7.7) K/mm3 Creatinine 0.6 L (0.7-1.2) mg/dL Total Protein 6.1 L (6.3-8.2) g/dL Albumin 3.8 L (3.9-5) g/dL Assessment and Plan Patient is a 28 yo woman with a history of chronic pain syndrome with monthly narcotic scripts from various physician throughout [place] (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 She reports a fever of 100.3F at home and started taking Tylenol. Her main compliant is "migraine headache", described as severe constant achy, radiating to neck associated with neck stiffness and sensitivity to light which started about 1 week ago. She was seen at [facility] ED on 12/17/18 for the same complaints and received seven tablets of Tylenol #[address] 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 Patient states he has abdominal pain right upper and left upper quadrant. Patient also complains of diffuse body pains. Patient states that she has had intermittent vomiting but has been able to tolerate Tylenol. Patient admits to diarrhea related to her Crohn's. Patient denies any hematochezia or hematemesis. When she went to [facility] ED with migraines and vomiting; she was told it may be a viral process and CAT scan of her abdomen and pelvis were negative. They told her if severe headache persist then she needs to be checked for meningitis. Patient presented on 11/15/18 with similar symptoms of n/v/abd pains. She been admitted here more than once for similar symptoms. * CT head without contrast reported as no acute finding * LP done, CSF was glucose is 52 (not less than 40 which would be more likely in bacterial meningitis) and WBC on 32 Headaches, suspected as Migraines: consult Neurology, she is crying for iv d ilaudid, iv morphine causes rash. Abd pains with n/d/v possible Crohn's flare: consult GI Intractable N/V with dehydration: treat with antiemtic, down grade diet to clears, start IV with dextrose additive Crohns disease with possible flare: consult GI Esophageal cancer by history: supportive care Chronic pain syndrome: iv dilaudid for migraine is not standard and when I told this to patient she claimed she needed dilaudid for the other pain associated with Crohn's, she needs pains specialist, will consult Dr. Ricci DVT prophylaxis with sq heparin GI prophylaxis with iv protonix med rec done full code
[2018-12-20] MEDS: ZOFRAN IV PRN (10:33)
[2018-12-20] MEDS ORDERED: TYLENOL PO PRN (11:23)
[2018-12-20] MEDS ORDERED: PROAIR IH PRN (11:23)
[2018-12-20] MEDS ORDERED: TYLENOL PR PRN (11:26)
[2018-12-20] MEDS ORDERED: REGLAN IV PRN (11:27)
[2018-12-20] MEDS ORDERED: ZOFRAN IV PRN (11:27)
[2018-12-20] MEDS: D5NS 1,000 ML IV SCH ×2 (11:56→20:29)
[2018-12-20] MEDS ORDERED: PROVENTIL IH PRN (12:01)
[2018-12-20] MEDS: PROTONIX IV SCH (12:17)
[2018-12-20] MEDS: TORADOL IV PRN ×3 (12:19→23:13)
--- NOTE | 2018-12-20 14:14 | XRay Report ---
Acute abdominal series, 3 views INDICATION: Abdominal pain FINDINGS: Bowel gas pattern is normal with no ileus or obstruction. No free air or significant air-fl uid levels. No renal or ureteral calculi. Residual contrast is seen in the colon which is not distend ed. Accompanying chest x-ray shows no significant abnormality. IMPRESSION: Negative study. Signer Name: Dorian Durant MD Signed: 12/20/2018 2:09 PM Workstation Name: [id number]
--- NOTE | 2018-12-20 14:26 | Progress Note ---
Subjective Date of service: 12/20/18 Interval history: went over the ED notes and PMH suspected crohn'sd disease and hx of migraine reviewed over the CSF results suspect this was traumatic tap but await results of the cultures certainly afebrile and CT of the head is entirely normal will follo up as needed Thanks Objective - Vital Sign Vital Signs - 12hr 12/20/18 12/20/18 12/20/18 02:28 02:58 03:00 Pulse Rate 58 L Respiratory 16 16 12 Rate Blood Pressure 115/75 O2 Sat by Pulse 100 Oximetry 12/20/18 12/20/18 12/20/18 04:00 05:00 06:00 Pulse Rate 56 L 54 L 55 L Respiratory 10 L 12 12 Rate Blood Pressure 119/87 116/81 109/78 O2 Sat by Pulse 100 100 99 Oximetry 12/20/18 12/20/18 12/20/18 07:01 07:27 08:00 Pulse Rate 70 60 Respiratory 16 15 14 Rate Blood Pressure 109/78 111/74 O2 Sat by Pulse 98 100 Oximetry 12/20/18 09:01 Pulse Rate 65 Respiratory 17 Rate Blood Pressure 126/77 O2 Sat by Pulse 100 Oximetry - Laboratory Findings CBC and BMP: 12/19/18 23:34 12/19/18 23:34 Abnormal Lab Findings: Abnormal Labs 12/19/18 12/19/18 23:34 23:34 WBC 3.4 L RDW 13.0 L Seg Neuts % (Manual) 27.0 L Lymphocytes % (Manual) 56.0 H Monocytes % (Manual) 15.0 H Seg Neutrophils # Man 0.9 L Creatinine 0.6 L Total Protein 6.1 L Albumin 3.8 L
--- NOTE | 2018-12-20 14:29 | Consultation ---
History of Present Illness - Reason for Consult Consult date: 12/20/18 meningitis Requesting physician: GIRISH ATKINS - History of Present Illness 28 y/o female with a history of Crohn's disease non compliance admitted on 12/19/2018 due to a week history of worsening nausea, vomiting and abdominal pain associated with diarrhea 2-3 times a day like a flare of her Crohn's, however on 12/16/2018 she noted severe headache, frontal 10 of 10, associated with photophobia, neck pain and stiffness. She went to the ED and was sent initially home. Influenza swab was negative. Headache has persisted despite pain meds. In the ED, temp 98.9. WBC 3.4. Creat 0.6. UA neg. LP done CSF shows wbc 36, rbc 438, Lymph 67%, glu 52, prot 22. Review of Systems: General: no fever, chills, no malaise Cutaneous: no rash, pruritus Head: no headaches or injury Eyes: no changes in vision, eye pain, double vision Ears: no ear pain, ear discharge, ringing or hearing loss Nose: no nose bleeding, stuffiness Mouth & throat: no bleeding gums, no horseness, no dental problems, or swollen glands Neck: no pain, node enlargement/lumps, tyroid enlargement or tenderness Respiratory: no cough, wheezing, sputum, hemoptysis, pleuritic chest pain Cardiovascular: no chest pain, leg edema, cyanosis, STAPLES, orthopnea Musculoskeletal: no edema Gastrointestinal: + nausea, + vomiting, no hematemesis, diarrhea, constipation, melena, bright red blood in stools, fecal incontinence, jaundice Genitourinary/Reproductive: no frequent urination, dysuria, hematuria, incontinence Neurogical: no seizures, no headaches, no weakness, no paresthesias, no loss of speech or vision; no memory loss, no vertigo, no tremors, no numbness +headache, neck stiffness Psychiatric: stable mood; no excessive anxiety, sadness or moodiness Medications and Allergies Allergies Allergy/AdvReac Type Severity Reaction Status Date / Time dicyclomine [From Bentyl] Allergy Hives Verified 12/19/18 22:35 levofloxacin [From Levaquin] Allergy Rash Verified 11/15/18 12:25 morphine Allergy Rash Verified 11/15/18 12:25 ibuprofen [From Motrin] AdvReac Bleeding Verified 11/15/18 12:25 Home Medications Medication Instructions Recorded Confirmed Last Taken Type ALBUTEROL Inhaler (OR & NICU) 2 puff IH QID PRN #1 inhalation 03/02/18 03/13/18 03/12/18 Rx [ProAir HFA Inhaler] Promethazine [Phenergan] 25 mg PO Q6HR PRN #20 tab 03/02/18 03/13/18 03/13/18 Rx Acetaminophen [Tylenol Arthritis] 650 mg PO Q6HR PRN #30 tablet.er 04/26/18 Unknown Rx Azithromycin [Zithromax Tri-Aguilar] 500 mg PO QDAY #5 tablet 04/26/18 Unknown Rx metroNIDAZOLE [Flagyl] 500 mg PO Q8HR #15 tablet 04/26/18 Unknown Rx Fluticasone [Flonase] 1 spray NS QDAY #1 bottle 06/22/18 Unknown Rx Pseudoephedrine ER [Sudafed 12 Hr] 120 mg PO BID #10 tablet.er 06/22/18 Unknown Rx oxyCODONE /ACETAMINOPHEN [Percocet 1 tab PO Q6H PRN #10 tablet 06/22/18 Unknown Rx 5/325 mg] Acetaminophen [Acetaminophen TAB] 650 mg PO Q6HR PRN #20 tablet 07/09/18 Unknown Rx Dicyclomine [Bentyl] 10 mg PO QID PRN #15 capsule 07/09/18 Unknown Rx Metoclopramide [Reglan TAB] 10 mg PO QID PRN #30 tablet 07/09/18 Unknown Rx Potassium Chloride [Klor-Con] 20 meq PO QDAY #7 packet 07/09/18 Unknown Rx Promethazine [Phenergan SUPPOS] 50 mg [place] Q6H PRN #20 supp.rect 07/09/18 Unknown Rx Acetaminophen [Tylenol Extra 500 mg PO QID #30 tablet 07/28/18 Unknown Rx Strength] Ondansetron [Zofran Odt] 4 mg PO Q8HR PRN #14 tab.rapdis 07/28/18 Unknown Rx Prednisone [predniSONE 10 mg 10 mg PO .TAPER #1 tab.ds.pk 07/28/18 Unknown Rx (6-Day Pack, 21 Tabs)] Acetaminophen/Codeine [Tylenol 1 tab PO Q6H PRN #12 tab 11/15/18 Unknown Rx /Codeine # 3 tab] Ondansetron [Zofran Odt] 4 mg PO Q8HR PRN #20 tab.rapdis 11/15/18 Unknown Rx Sulfamethoxazole/Trimethoprim 1 each PO BID #14 tablet 11/15/18 Unknown Rx [Bactrim DS TAB] metroNIDAZOLE [Flagyl] 500 mg PO Q8HR #21 tablet 11/15/18 Unknown Rx Active Meds: Active Medications Acetaminophen (Tylenol) 650 mg PO Q6H PRN PRN Reason: Pain Acetaminophen (Tylenol) 650 mg [place] Q4H PRN PRN Reason: Non Cardiac Pain or Temp>100.5 Albuterol (Proventil) 2.5 mg IH Q4H PRN PRN Reason: Shortness Of Breath Dextrose/Sodium Chloride (D5ns) 1,000 mls @ 125 mls/hr IV DIRECT [facility] Last Admin: 12/20/18 11:56 Dose: 125 mls/hr Documented by: Ketorolac Tromethamine (Toradol) 30 mg IV Q6H PRN PRN Reason: Pain , Severe (7-10) Stop: 12/25/18 11:49 Last Admin: 12/20/18 12:19 Dose: 30 mg Documented by: Metoclopramide HCl (Reglan) 10 mg IV Q8H PRN PRN Reason: Nausea And Vomiting Last Admin: 12/20/18 11:56 Dose: 10 mg Documented by: Ondansetron HCl (Zofran) 4 mg IV Q4H PRN PRN Reason: Nausea And Vomiting Last Admin: 12/20/18 10:33 Dose: 4 mg Documented by: Ondansetron HCl (Zofran) 4 mg IV Q4H PRN PRN Reason: N/V unrelieved by Reglan Pantoprazole Sodium (Protonix) 40 mg IV QDAY [facility] Last Admin: 12/20/18 12:17 Dose: 40 mg Documented by: Physical Examination - Physical Exam Narrative exam: General appearance: Alert in NAD Eyes: anicteric sclerae, moist conjunctivae; no lid-lag; PERRLA HENT: Atraumatic; oropharynx clear with moist mucous membranes and no mucosal ulcerations/no oral thrush; normal hard and soft palate. Normal external ears. Neck: Trachea midline; supple, no thyromegaly or lymphadenopathy Lungs: CTA, with normal respiratory effort and no intercostal retractions CV: RRR no murmur Abdomen: Soft, diffuse tenderness Extremities: no edema, cyanosis Skin: Normal temperature, turgor and texture; no rash, ulcers or subcutaneous nodules Psych: Appropriate affect, alert and oriented to person, place and time. Neuro: alert and oriented x 3. Moving all extermities - Constitutional Vitals: Vital Signs Temp Pulse Resp BP Pulse Ox 98.5 F 65 17 126/77 100 12/19/18 23:15 12/20/18 09:01 12/20/18 09:01 12/20/18 09:01 12/20/18 09:01 Temperature -Last 24 Hours Temperature 98.5 F Temperature 98.9 F Results - Labs CBC & Chem 7: 12/19/18 23:34 12/19/18 23:34 Labs: Abnormal lab results 12/19/18 12/19/18 Range/Units 23:34 23:34 WBC 3.4 L (4.5-11.0) K/mm3 RDW 13.0 L (13.2-15.2) % Seg Neuts % (Manual) 27.0 L (40.0-70.0) % Lymphocytes % (Manual) 56.0 H (13.4-35.0) % Monocytes % (Manual) 15.0 H (0.0-7.3) % Seg Neutrophils # Man 0.9 L (1.8-7.7) K/mm3 Creatinine 0.6 L (0.7-1.2) mg/dL Total Protein 6.1 L (6.3-8.2) g/dL Albumin 3.8 L (3.9-5) g/dL Assessment and Plan Cultures: CSF 12/20 no growth today Assessment: 28 y/o female with a history of Crohn's disease non compliance admitted on 12/19/2018 due to a week history of worsening nausea, vomiting and abdominal pain associated with diarrhea 2-3 times a day like a flare of her Crohn's, however on 12/16/2018 she noted severe headache, frontal 10 of 10, associated with photophobia, neck pain and stiffness: 1) Headache: ? migraine. Doubt meningitis as NO fever and CSF with bloody fluid ? traumatic, Normal glucose and protein. LP done CSF shows wbc 36, rbc 438, Lymph 67%, glu 52, prot 22. 2) Crohn's disease with flare Recommendations: no need for antibiotics of antiviral no strong evidence of meningitis monitor off antibiotics Will follow. Cata Gracia MD Infectious Diseases Full Time [employer] [facility] M [phone] O [phone]
--- NOTE | 2018-12-20 16:31 | Event Note ---
Date: 12/20/18 called with consult; reviewed chart, from GI standpoint patient has had medical compliance issues. Recent CT last month was normal, and xray today is normal. Would specifically recommend against opiates if patient has Crohn's disease as that is associated with increased risk of morbidity and mortality. If she is having a flare, then would recommend making her NPO as eating will worsening her symptoms. Please provide IV hydration to compensate I will see the patient for full consult tomorrow AM.
[2018-12-20] MEDS ORDERED: ZOVIRAX IV SCH (18:00)
[2018-12-20] MEDS ORDERED: NACL 0.9% IV SCH (18:00)
[2018-12-20] MEDS ORDERED: BENADRYL PO PRN (22:21)
[2018-12-21] MEDS: TORADOL IV PRN ×2 (06:47→11:48)
[2018-12-21] MEDS: D5NS 1,000 ML IV SCH (06:53)
[2018-12-21 08:36] LABS: Hematocrit 31.8 % (30.3-42.9); Hemoglobin 10.8 gm/dl (10.1-14.3); Mean Corpuscular HGB Conc 34 % (30-34); Mean Corpuscular Hemoglobin 31 pg (28-32); Mean Corpuscular Volume 90 fl (79-97); Platelet Count 154 K/mm3 (140-440); Red Blood Count 3.53 M/mm3 (3.65-5.03); Red Cell Distribution Width 12.9 % (13.2-15.2)
[2018-12-21 08:56] LABS: BUN/Creatinine Ratio 14; Blood Urea Nitrogen 7 mg/dL (7-17); Calcium 8.5 mg/dL (8.4-10.2); Hemolysis Index 4
--- NOTE | 2018-12-21 09:00 | Progress Note ---
Assessment and Plan Cultures: CSF 12/20 no growth today Assessment: 28 y/o female with a history of Crohn's disease non compliance admitted on 12/19/2018 due to a week history of worsening nausea, vomiting and abdominal pain associated with diarrhea 2-3 times a day like a flare of her Crohn's, however on 12/16/2018 she noted severe headache, frontal 10 of 10, associated with photophobia, neck pain and stiffness: 1) Headache: ? migraine. Doubt meningitis as NO fever and CSF with bloody fluid ? traumatic, Normal glucose and protein. LP done CSF shows wbc 36, rbc 438, Lymph 67%, glu 52, prot 22. 2) Crohn's disease with flare Recommendations: no need for antibiotics or antiviral no strong evidence of meningitis monitor off antibiotics recommend neurology consultation D/w Dr. Agustín SPENCE is signing off [facility] M: [phone] O:[phone] Subjective Date of service: 12/21/18 Interval history: Patient seen and examined. Reports focal headache, sensitivity to light, nausea and vomiting. No fevers. Objective - Exam Narrative Exam: General appearance: Awake. Alert. Headache intensity 10/10 Eyes: anicteric sclerae, moist conjunctivae; no lid-lag; PERRLA HENT: Atraumatic; oropharynx clear with moist mucous membranes and no mucosal ulcerations/no oral thrush; normal hard and soft palate. Normal external ears. Neck: Trachea midline; supple, no thyromegaly or lymphadenopathy Lungs: CTA, with normal respiratory effort and no intercostal retractions CV: RRR no murmur Abdomen: Soft, diffuse tenderness Extremities: no edema, cyanosis Skin: Normal temperature, turgor and texture; no rash, ulcers or subcutaneous nodules Psych: alert and oriented to person, place and time. Neuro: Headache reported with sensitivity to light. Moving all extremities - Constitutional Vitals: Vital Signs Temp Pulse Resp BP Pulse Ox 98.1 F 60 20 128/88 100 12/21/18 06:21 12/21/18 06:21 12/21/18 06:21 12/21/18 06:21 12/21/18 06:21 Temperature -Last 24 Hours Temperature 98.1 F Temperature 98.6 F Temperature 98.8 F Temperature 97.3 F Temperature 98.2 F - Labs CBC & Chem 7: 07/22/19 07:01 12/21/18 07:01 Labs: Abnormal lab results 12/21/18 12/21/18 Range/Units 07:01 07:01 WBC 3.0 L (4.5-11.0) K/mm3 RBC 3.53 L (3.65-5.03) M/mm3 RDW 12.9 L (13.2-15.2) % Potassium 3.5 L (3.6-5.0) mmol/L Creatinine 0.5 L (0.7-1.2) mg/dL Glucose 104 H (65-100) mg/dL
[2018-12-21] MEDS ORDERED: HEPARIN SUB-Q SCH (11:49)
[2018-12-21] MEDS: PROTONIX IV SCH (11:49)
--- NOTE | 2018-12-21 11:52 | Gastroenterology Consultation ---
History of Present Illness - Reason for Consult Consult date: 12/21/18 abd pain, Crohn's Requesting physician: FABIAN STONE - History of Present Illness This is a pleasant 28 yo female for whom I am consulted for abdominal pain. The reports diffuse body pain associated with the abdominal pain, the pain is severe, constant, alleviated by pain meds and worse with palpation, associated with nausea and vomiting, radiates to the entire body, the pain will increase a nd decrease but is constant Was recently at ER and had neg abdominal CT scan PSH: Tubal ligation, tonsillectomy SH: Denies alcohol, tobacco, drugs FH: Hypertension PMH - reported history of Crohn's, migraines, opiate use Allergies: dicyclomine, levofloxacin, morphine, ibuprofen Medications and Allergies Allergies Allergy/AdvReac Type Severity Reaction Status Date / Time dicyclomine [From Bentyl] Allergy Hives Verified 12/19/18 22:35 levofloxacin [From Levaquin] Allergy Rash Verified 11/15/18 12:25 morphine Allergy Rash Verified 11/15/18 12:25 ibuprofen [From Motrin] AdvReac Bleeding Verified 11/15/18 12:25 Home Medications Medication Instructions Recorded Confirmed Last Taken Type RX: ALBUTEROL Inhaler (OR & NICU) 2 puff IH QID PRN #1 inhalation 03/02/18 03/13/18 03/12/18 Rx [ProAir HFA Inhaler] RX: Promethazine [Phenergan] 25 mg PO Q6HR PRN #20 tab 03/02/18 03/13/18 03/13/18 Rx Acetaminophen [Tylenol Arthritis] 650 mg PO Q6HR PRN #30 tablet.er 04/26/18 Unknown Rx RX: Azithromycin [Zithromax 500 mg PO QDAY #5 tablet 04/26/18 Unknown Rx Tri-Aguilar] metroNIDAZOLE [Flagyl] 500 mg PO Q8HR #15 tablet 04/26/18 Unknown Rx Fluticasone [Flonase] 1 spray NS QDAY #1 bottle 06/22/18 Unknown Rx RX: Pseudoephedrine ER [Sudafed 12 120 mg PO BID #10 tablet.er 06/22/18 Unknown Rx Hr] RX: oxyCODONE /ACETAMINOPHEN 1 tab PO Q6H PRN #10 tablet 06/22/18 Unknown Rx [Percocet 5/325 mg] Dicyclomine [Bentyl] 10 mg PO QID PRN #15 capsule 07/09/18 Unknown Rx RX: Acetaminophen [Acetaminophen 650 mg PO Q6HR PRN #20 tablet 07/09/18 Unknown Rx TAB] RX: Metoclopramide [Reglan TAB] 10 mg PO QID PRN #30 tablet 07/09/18 Unknown Rx RX: Potassium Chloride [Klor-Con] 20 meq PO QDAY #7 packet 07/09/18 Unknown Rx RX: Promethazine [Phenergan SUPPOS] 50 mg [place] Q6H PRN #20 supp.rect 07/09/18 Unknown Rx Acetaminophen [Tylenol Extra 500 mg PO QID #30 tablet 07/28/18 Unknown Rx Strength] Ondansetron [Zofran Odt] 4 mg PO Q8HR PRN #14 tab.rapdis 07/28/18 Unknown Rx RX: Prednisone [predniSONE 10 mg 10 mg PO .TAPER #1 tab.ds.pk 07/28/18 Unknown Rx (6-Day Pack, 21 Tabs)] Acetaminophen/Codeine [Tylenol 1 tab PO Q6H PRN #12 tab 11/15/18 Unknown Rx /Codeine # 3 tab] Ondansetron [Zofran Odt] 4 mg PO Q8HR PRN #20 tab.rapdis 11/15/18 Unknown Rx Sulfamethoxazole/Trimethoprim 1 each PO BID #14 tablet 11/15/18 Unknown Rx [Bactrim DS TAB] metroNIDAZOLE [Flagyl] 500 mg PO Q8HR #21 tablet 11/15/18 Unknown Rx Active Meds: Active Medications Acetaminophen (Tylenol) 650 mg PO Q6H PRN PRN Reason: Pain Acetaminophen (Tylenol) 650 mg [place] Q4H PRN PRN Reason: Non Cardiac Pain or Temp>100.5 Albuterol (Proventil) 2.5 mg IH Q4H PRN PRN Reason: Shortness Of Breath Diphenhydramine HCl (Benadryl) 25 mg PO QHS PRN PRN Reason: Sleep Last Admin: 12/20/18 23:13 Dose: 25 mg Documented by: Dextrose/Sodium Chloride (D5ns) 1,000 mls @ 125 mls/hr IV DIRECT [facility] Last Admin: 12/21/18 06:53 Dose: 125 mls/hr Documented by: Ketorolac Tromethamine (Toradol) 30 mg IV Q6H PRN PRN Reason: Pain , Severe (7-10) Stop: 12/25/18 11:49 Last Admin: 12/21/18 11:48 Dose: 30 mg Documented by: Metoclopramide HCl (Reglan) 10 mg IV Q8H PRN PRN Reason: Nausea And Vomiting Last Admin: 12/20/18 11:56 Dose: 10 mg Documented by: Ondansetron HCl (Zofran) 4 mg IV Q4H PRN PRN Reason: Nausea And Vomiting Last Admin: 12/20/18 10:33 Dose: 4 mg Documented by: Ondansetron HCl (Zofran) 4 mg IV Q4H PRN PRN Reason: N/V unrelieved by Reglan Pantoprazole Sodium (Protonix) 40 mg IV QDAY KB Last Admin: 12/21/18 11:49 Dose: 40 mg Documented by: Review of Systems - Review of Systems All systems: negative Constitutional: chronic pain Cardiovascular: edema Gastrointestinal: abdominal pain Neurological: other (headache) Psychiatric: anxiety Exam - Constitutional Vital Signs: Temp Pulse Resp BP Pulse Ox 98.1 F 60 20 128/88 100 12/21/18 06:21 12/21/18 06:21 12/21/18 06:21 12/21/18 06:21 12/21/18 06:21 General appearance: mild distress - EENT Eyes: EOM intact ENT: hearing intact - Neck Neck: supple - Respiratory Respiratory: bilateral: CTA - Cardiovascular Rhythm: regular - Gastrointestinal General gastrointestinal: Present: other (severe ttp) - Integumentary Integumentary: Present: dry - Musculoskeletal Musculoskeletal: other (right hand swelling) - Labs CBC & Chem 7: 12/21/18 07:01 12/21/18 07:01 Lab Results: Laboratory Results - last 24 hr 12/21/18 12/21/18 07:01 07:01 WBC 3.0 L RBC 3.53 L Hgb 10.8 Hct 31.8 MCV 90 MCH 31 MCHC 34 RDW 12.9 L Plt Count 154 Sodium 140 Potassium 3.5 L Chloride 105.0 Carbon Dioxide 23 Anion Gap 16 BUN 7 Creatinine 0.5 L Estimated GFR > 60 BUN/Creatinine Ratio 14 Glucose 104 H Calcium 8.5 Assessment and Plan Unclear that patient is truly having Crohn's flare, especially given lack of objective evidence on recent imaging. Will expand Differential diagnosis to include biliary source, already had neg CT so will order HIDA scan with CCK. If negative and symptoms persist will pursue colonoscopy to objectively determine if Crohn's is present or not - Patient Problems (1) Abdominal pain Status: Acute Qualifiers: Abdominal location: generalized Qualified Code(s): R10.84 - Generalized abdominal pain (2) Acute headache Status: Acute (3) Crohn's disease Status: Acute Qualifiers: Gastrointestinal tract location: unspecified location Digestive disease complication type: without complication Qualified Code(s): K50.90 - Crohn's disease, unspecified, without complications (4) Diarrhea Status: Acute Qualifiers: Diarrhea type: unspecified type Qualified Code(s): R19.7 - Diarrhea, unspe cified (5) Intractable abdominal pain Status: Acute (6) Nausea & vomiting Status: Acute Qualifiers: Vomiting type: unspecified Vomiting Intractability: non-intractable Qualified Code(s): R11.2 - Nausea with vomiting, unspecified
--- NOTE | 2018-12-21 12:34 | Progress Note ---
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 She reports a fever of 100.3F at home and started taking Tylenol. Her main compliant is "migraine headache", described as severe constant achy, radiating to neck associated with neck stiffness and sensitivity to light which started about 1 week ago. She was seen at [facility] ED on 12/17/18 for the same complaints and received seven tablets of Tylenol #[address] Buddy Ron (per [place] assistant federal public defender aware) and was discharged home. Patient states he has abdominal pain right upper and left upper quadrant. Patient also complains of diffuse body pains. Patient states that she has had intermittent vomiting but has been able to tolerate Tylenol. Patient admits to diarrhea related to her Crohn's. Patient denies any hematochezia or hematemesis. When she went to [facility] ED with migraines and vomiting; she was told it may be a viral process and CAT scan of her abdomen and pelvis were negative. They told her if severe headache persist then she needs to be checked for meningitis. Patient presented on 11/15/18 with similar symptoms of n/v/abd pains. She been admitted here more than once for similar symptoms. * CT head without contrast reported as no acute finding * LP done, CSF was glucose is 52 (not less than 40 which would be more likely in bacterial meningitis) and WBC on 32 Headaches, suspected as Migraines: consulted Neurology, she is requesting IV Dilaudid, iv morphine causes rash. Abd pains with n/d/v possible Crohn's flare: consulted GI, HIDA scan ordered for tomorrow Intractable N/V with dehydration: treat with antiemtic, down grade diet to clears, start IV with dextrose additive Crohns disease with possible flare: consult GI Esophageal cancer by history: supportive care Chronic pain syndrome: iv dilaudid for migraine is not standard and when I told this to patient she claimed she needed dilaudid for the other pain associated with Crohn's, she needs pains specialist, will consult Dr. Ricci DVT prophylaxis with sq heparin GI prophylaxis with iv protonix med rec done full code Disposition: continue inpatient care, HIDA scan pending History Interval history: Patient was seen and examined. Follow-up on current diagnosis of body pains and headaches. No overnight events reported to me. Patient denies any chest pain, shortness breath, nausea/vomiting. Imaging, nursing note, chart, labs and old chart reviewed. Discussed with patient. She wants IV dilaudid. Hospitalist Physical - Physical exam Narrative exam: Gen: WDWN, NAD, Awake, Alert, Orientated HEENT: NCAT, EOMI, PERRL, OP Clear Neck: supple, no adenopathy, no thyromegaly, no JVD CVS/Heart: RRR, normal S1S2, pulses present bilaterally Chest/Lungs: CTA B, Symmetrical chest expansion, good air entry bilaterally GI/Abdomen: soft, NTND, good bowel sounds, no guarding or rebound /Bladder: no suprapubic tenderness, no CVA or paraspinal tenderness Extermity/Skin: no c/c/e, no obvious rash MSK: FROM x 4 Neuro: CN 2-12 grossly intact, no new focal deficits Psych: calm - Constitutional Vitals: Temp Pulse Resp BP Pulse Ox 98.1 F 60 20 128/88 100 12/21/18 06:21 12/21/18 06:21 12/21/18 06:21 12/21/18 06:21 12/21/18 06:21 Results - Labs CBC & Chem 7: 12/21/18 07:01 12/21/18 07:01 Labs: Laboratory Last Values WBC 3.0 K/mm3 (4.5-11.0) L 12/21/18 07:01 RBC 3.53 M/mm3 (3.65-5.03) L 12/21/18 07:01 Hgb 10.8 gm/dl (10.1-14.3) 12/21/18 07:01 Hct 31.8 % (30.3-42.9) 12/21/18 07:01 MCV 90 fl (79-97) 12/21/18 07:01 MCH 31 pg (28-32) 12/21/18 07:01 MCHC 34 % (30-34) 12/21/18 07:01 RDW 12.9 % (13.2-15.2) L 12/21/18 07:01 Plt Count 154 K/mm3 (140-440) 12/21/18 07:01 Add Manual Diff Complete 12/19/18 23:34 Total Counted 100 12/19/18 23:34 Seg Neutrophils % Development Lead 12/19/18 23:34 Seg Neuts % (Manual) 27.0 % (40.0-70.0) L 12/19/18 23:34 0 % 12/19/18 23:34 56.0 % (13.4-35.0) H 12/19/18 23:34 Reactive Lymphs % (Man) 0 % 12/19/18 23:34 15.0 % (0.0-7.3) H 12/19/18 23:34 2.0 % (0.0-4.3) 12/19/18 23:34 0 % (0.0-1.8) 12/19/18 23:34 0 % 12/19/18 23:34 0 % 12/19/18 23:34 0 % 12/19/18 23:34 0 % 12/19/18 23:34 Nucleated RBC % Not Reportable 12/19/18 23:34 Seg Neutrophils # Man 0.9 K/mm3 (1.8-7.7) L 12/19/18 23:34 Band Neutrophils # 0.0 K/mm3 12/19/18 23:34 1.9 K/mm3 (1.2-5.4) 12/19/18 23:34 Abs React Lymphs (Man) 0.0 K/mm3 12/19/18 23:34 0.5 K/mm3 (0.0-0.8) 12/19/18 23:34 0.1 K/mm3 (0.0-0.4) 12/19/18 23:34 0.0 K/mm3 (0.0-0.1) 12/19/18 23:34 0.0 K/mm3 12/19/18 23:34 0.0 K/mm3 12/19/18 23:34 0.0 K/mm3 12/19/18 23:34 Blast Cells # 0.0 K/mm3 12/19/18 23:34 WBC Morphology Not Reportable 12/19/18 23:34 Hypersegmented Neuts Not Reportable 12/19/18 23:34 Hyposegmented Neuts Not Reportable 12/19/18 23:34 Hypogranular Neuts Not Reportable 12/19/18 23:34 Not Reportable 12/19/18 23:34 Not Reportable 12/19/18 23:34 Not Reportable 12/19/18 23:34 Not Reportable 12/19/18 23:34 Not Reportable 12/19/18 23:34 Not Reportable 12/19/18 23:34 Consistent w auto 12/19/18 23:34 Not Reportable 12/19/18 23:34 Plt Clumps, EDTA Not Reportable 12/19/18 23:34 Not Reportable 12/19/18 23:34 Not Reportable 12/19/18 23:34 Not Reportable 12/19/18 23:34 Plt Morphology Comment Not Reportable 12/19/18 23:34 RBC Morphology Not Reportable 12/19/18 23:34 Dimorphic RBCs Not Reportable 12/19/18 23:34 Not Reportable 12/19/18 23:34 Not Reportable 12/19/18 23:34 Not Reportable 12/19/18 23:34 1+ 12/19/18 23:34 Not Reportable 12/19/18 23:34 Not Reportable 12/19/18 23:34 Not Reportable 12/19/18 23:34 Not Reportable 12/19/18 23:34 Not Reportable 12/19/18 23:34 Not Reportable 12/19/18 23:34 Not Reportable 12/19/18 23:34 Not Reportable 12/19/18 23:34 Not Reportable 12/19/18 23:34 Not Reportable 12/19/18 23:34 Not Reportable 12/19/18 23:34 Not Reportable 12/19/18 23:34 Not Reportable 12/19/18 23:34 Not Reportable 12/19/18 23:34 Not Reportable 12/19/18 23:34 Acanthocytes (Spur) Not Reportable 12/19/18 23:34 Rouleaux Not Reportable 12/19/18 23:34 Not Reportable 12/19/18 23:34 Not Reportable 12/19/18 23:34 Not Reportable 12/19/18 23:34 Not Reportable 12/19/18 23:34 Hem Pathologist Commnt No 12/19/18 23:34 Sodium 140 mmol/L (137-145) 12/21/18 07:01 Potassium 3.5 mmol/L (3.6-5.0) L 12/21/18 07:01 Chloride 105.0 mmol/L (98-107) 12/21/18 07:01 Carbon Dioxide 23 mmol/L (22-30) 12/21/18 07:01 16 mmol/L 12/21/18 07:01 BUN 7 mg/dL (7-17) 12/21/18 07:01 0.5 mg/dL (0.7-1.2) L 12/21/18 07:01 Estimated GFR > 60 ml/min 12/21/18 07:01 14 % 12/21/18 07:01 Glucose 104 mg/dL (65-100) H 12/21/18 07:01 Calcium 8.5 mg/dL (8.4-10.2) 12/21/18 07:01 0.20 mg/dL (0.1-1.2) 12/19/18 23:34 AST 22 units/L (5-40) 12/19/18 23:34 ALT 42 units/L (7-56) 12/19/18 23:34 73 units/L (35-129) 12/19/18 23:34 109 units/L (30-135) 12/20/18 00:12 6.1 g/dL (6.3-8.2) L 12/19/18 23:34 3.8 g/dL (3.9-5) L 12/19/18 23:34 1.7 % 12/19/18 23:34 43 units/L (13-60) 12/19/18 23:34 Straw (Yellow) 12/20/18 02:37 Clear (Clear) 12/20/18 02:37 7.0 (5.0-7.0) 12/20/18 02:37 Ur Specific [place] 1.003 (1.003-1.030) 12/20/18 02:37 <15 mg/dl mg/dL (Negative) 12/20/18 02:37 Neg mg/dL (Negative) 12/20/18 02:37 Neg mg/dL (Negative) 12/20/18 02:37 Neg (Negative) 12/20/18 02:37 Neg (Negative) 12/20/18 02:37 Neg (Negative) 12/20/18 02:37 < 2.0 mg/dL (<2.0) 12/20/18 02:37 Ur Leukocyte Esterase Neg (Negative) 12/20/18 02:37 0.0 /HPF (0.0-6.0) 12/20/18 02:37 < 1.0 /HPF (0.0-6.0) 12/20/18 02:37 U Epithel Cells (Auto) < 1.0 /HPF (0-13.0) 12/20/18 02:37 Urine HCG, Qual Negative (Negative) 12/20/18 02:37 Clear 12/20/18 05:32 Colorless 12/20/18 05:32 36 /mm3 (1-10) 12/20/18 05:32 19 /mm3 (0-0) 12/20/18 05:32 CSF Seg Neutrophils 12.0 % (0-6) 12/20/18 05:32 59.0 % (40-80) 12/20/18 05:32 CSF Reactive Lymphs 3.0 % 12/20/18 05:32 23.0 % (15-45) 12/20/18 05:32 3.0 % 12/20/18 05:32 0 % 12/20/18 05:32 C 12/20/18 05:32 52 mg/dL 12/20/18 02:57 22 mg/dL 12/20/18 02:57 Active Medications - Current Medications Current Medications: Generic Name Dose Route Start Last Admin Trade Name Freq PRN Reason Stop Dose Admin Acetaminophen 650 mg 12/20/18 11:23 12/21/18 11:49 Tylenol PO 650 mg Q6H PRN Administration Pain Acetaminophen 650 mg 12/20/18 11:26 Tylenol SD Q4H PRN Non Cardiac Pain or Temp>100.5 Albuterol 2.5 mg 12/20/18 12:01 Proventil IH Q4H PRN Shortness Of Breath Diphenhydramine HCl 25 mg 12/20/18 22:21 12/20/18 23:13 Benadryl PO 25 mg QHS PRN Administration Sleep Dextrose/Sodium Chloride 1,000 mls @ 125 mls/hr 12/20/18 12:00 12/21/18 06:53 D5ns IV 125 mls/hr DIRECT KB Administration Ketorolac Tromethamine 30 mg 12/20/18 11:50 12/21/18 11:48 Toradol IV 12/25/18 11:49 30 mg Q6H PRN Administration Pain , Severe (7-10) Metoclopramide HCl 10 mg 12/20/18 11:27 12/20/18 11:56 Reglan IV 10 mg Q8H PRN Administration Nausea And Vomiting Ondansetron HCl 4 mg 12/20/18 10:28 12/20/18 10:33 Zofran IV 4 mg Q4H PRN Administration Nausea And Vomiting Ondansetron HCl 4 mg 12/20/18 11:27 Zofran IV Q4H PRN N/V unrelieved by Huan Pantoprazole Sodium 40 mg 12/22/18 10:00 Protonix PO DAILY KB
[2018-12-21 13:42] VITALS: BP 137/90
[2018-12-21] MEDS ORDERED: PERCOCET 5/325 PO PRN (14:44)
[2018-12-21] MEDS: ZOFRAN IV PRN (15:56)
[2018-12-21] MEDS ORDERED: FIORICET PO PRN (16:32)
[2018-12-22] MEDS ORDERED: PROTONIX PO SCH (10:00)
--- NOTE | 2018-12-22 20:14 | Discharge Summary ---
Providers - Providers Date of Admission: 12/20/18 08:44 Date of discharge: 12/22/18 Attending physician: FABIAN STONE 12/20/18 05:38 Consult to Physician [CONS] Stat Comment: Dr. Cordova spoke with Dr. Yang @ 0636 Consulting Provider: DAKOTA BOSCH Physician Instructions: Reason For Exam: meningitis 12/20/18 11:46 Consult to Physician [CONS] Routine Comment: Consulting Provider: JORDIN BHAT Physician Instructions: Reason For Exam: ?migraines and chronic pain syndrome 12/20/18 11:47 Consult to Physician [CONS] Routine Comment: Consulting Provider: LESIA TODD Physician Instructions: Reason For Exam: ?Crohn's flare Primary care physician: [facility] MARVA Hospitalization Condition: Undetermined Hospital course: Patient left AMA because she wasn't receiving IV dilaudid for her headaches. She has received percocet, toradol; nonetheless, she wants IV dilaudid. We spoke about side effects of LP and other pain relieving modalities. Risk involved in leaving AMA discussed. Also, the workup for the abd pains is still underway. HIDA scan ordered for AM. Disposition: DC-07 LEFT AGAINST MED ADVICE Core Measure Documentation - Palliative Care Palliative Care/ Comfort Measures: Not Applicable - Core Measures Any of the following diagnoses?: none - VTE Discharge Requirements Deep Vein Thrombosis/Pulmonary Embolism Present on Admission: No Has pt received <5 days of overlap therapy or INR<2.0: No Anticoagulant overlap therapy prescribed at discharge: No Contraindication No Overlap Therapy order at DC: Not Indicated Exam - Constitutional Vitals: Temp Pulse Resp BP Pulse Ox 97.7 F 52 L 19 137/90 100 12/21/18 12:36 12/21/18 12:36 12/21/18 12:36 12/21/18 12:36 12/21/18 12:36 Plan Follow up with: EFRAÍN ZIMMERMAN MD [Primary Care Provider] - 3-5 Days
== END 2018-12-21 16:30 | disposition left against medical advice (07) | DRG 387 ==
LOC: ED 21:56 → 3A 12-20 08:44
PROVIDERS: ADMIT Internal Medicine; ATTEND Internal Medicine
PROC: 009U3ZZ Drainage of Spinal Canal, Percutaneous Approach (ICD-10-PCS; principal; 2018-12-19)
DX: K50.90 Crohn's disease, unspecified, without complications (principal); E86.0 Dehydration; G89.4 Chronic pain syndrome; G43.909 Migraine, unspecified, not intractable, without status migrainosus; J45.909 Unspecified asthma, uncomplicated; Z79.51 Long term (current) use of inhaled steroids; Z79.899 Other long term (current) drug therapy; Z88.6 Allergy status to analgesic agent; Z88.1 Allergy status to other antibiotic agents; Z88.5 Allergy status to narcotic agent; Z90.89 Acquired absence of other organs; Z98.51 Tubal ligation status; Z85.01 Personal history of malignant neoplasm of esophagus
CPT/HCPCS: 36415; 70450; 74022; 80048; 80053; 81001; 81025; 82550; 82947; 83690; 84160; 85007; 85025; 85027; 87116; 89051; G0378; C9113; J0133; J0696; J1170; J1200; J1885; J2405; J2765; J3370; J7042; J7050

== ENCOUNTER 2019-04-04 13:01 | Emergency (ER) | payer OTHER ==
--- NOTE | 2019-04-04 13:22 | Emergency Department Report ---
Blank Doc - Documentation Documentation: 29-year-old female that presents with chronic lower back pains. Stated had a lumbar spine tap for pain control which worsening the pain. Stated has some numbness. This initial assessment/diagnostic orders/clinical plan/treatment(s) is/are subject to change based on patient's health status, clinical progression and re- assessment by fellow clinical providers in the ED. Further treatment and workup at subsequent clinical providers discretion. Patient/guardians urged not to elope from the ED as their condition may be serious if not clinically assessed and managed. Initial orders include: 1- Patient sent to [facility] for further evaluation and treatment 2- CT scan of lumbar spine
[2019-04-04 13:23] VITALS: BP 128/83
[2019-04-04 14:27] LABS: Bacteria,Urine 1+ /HPF (Negative); Bilirubin,Urine NEG (Negative); Blood,Urine NEG (Negative); Color,Urine Yellow (Yellow); Mucus,Urine 3+ /HPF; Protein,Urine <15 mg/dL mg/dL (Negative); Urobilinogen,Urine < 2.0 mg/dL (<2.0)
--- NOTE | 2019-04-04 15:33 | Emergency Department Report ---
ED General Adult HPI - General Chief complaint: Back Pain/Injury Stated complaint: RT LEG NUMB/DOC ORDERED/SEVERE PAIN Time Seen by Provider: 04/04/19 13:20 Source: patient Mode of arrival: Ambulatory Limitations: No Limitations - History of Present Illness Initial comments: This is a 29-year-old female who presents to ED complaining of acute onset on c hronic back pain for the past 2 days. Patient has a history of the lumbar bulging disc in states that about 3 months ago she had a spinal tap which is causing her some lumbar back pain. Patient also states that pain is radiating down her right buttock and thigh. Patient states she has a neurologist Dr. Briseno at [facility] as well as primary care physician Dr. Lombardi. Patient states that 2 days ago she was at home doing some mild cleaning when she accidentally sprained her lower back. She states that pain started after that incident. She denies any fall or trauma to the back. She denies difficulty urinating or having a bowel movement. - Related Data Previous Rx's Medication Instructions Recorded Last Taken Type ALBUTEROL Inhaler (OR & NICU) 2 puff IH QID PRN #1 inhalation 03/02/18 03/12/18 Rx [ProAir HFA Inhaler] Promethazine [Phenergan] 25 mg PO Q6HR PRN #20 tab 03/02/18 03/13/18 Rx Acetaminophen [Tylenol Arthritis] 650 mg PO Q6HR PRN #30 tablet.er 04/26/18 Unknown Rx Azithromycin [Zithromax Tri-Aguilar] 500 mg PO QDAY #5 tablet 04/26/18 Unknown Rx metroNIDAZOLE [Flagyl] 500 mg PO Q8HR #15 tablet 04/26/18 Unknown Rx Fluticasone [Flonase] 1 spray NS QDAY #1 bottle 06/22/18 Unknown Rx Pseudoephedrine ER [Sudafed 12 Hr] 120 mg PO BID #10 tablet.er 06/22/18 Unknown Rx oxyCODONE /ACETAMINOPHEN [Percocet 1 tab PO Q6H PRN #10 tablet 06/22/18 Unknown Rx 5/325 mg] Acetaminophen [Acetaminophen TAB] 650 mg PO Q6HR PRN #20 tablet 07/09/18 Unknown Rx Dicyclomine [Bentyl] 10 mg PO QID PRN #15 capsule 07/09/18 Unknown Rx Metoclopramide [Reglan TAB] 10 mg PO QID PRN #30 tablet 07/09/18 Unknown Rx Potassium Chloride [Klor-Con] 20 meq PO QDAY #7 packet 07/09/18 Unknown Rx Promethazine [Phenergan SUPPOS] 50 mg LA Q6H PRN #20 supp.rect 07/09/18 Unknown Rx Acetaminophen [Tylenol Extra 500 mg PO QID #30 tablet 07/28/18 Unknown Rx Strength] Ondansetron [Zofran Odt] 4 mg PO Q8HR PRN #14 tab.rapdis 07/28/18 Unknown Rx Prednisone [predniSONE 10 mg 10 mg PO .TAPER #1 tab.ds.pk 07/28/18 Unknown Rx (6-Day Pack, 21 Tabs)] Acetaminophen/Codeine [Tylenol 1 tab PO Q6H PRN #12 tab 11/15/18 Unknown Rx /Codeine # 3 tab] Ondansetron [Zofran Odt] 4 mg PO Q8HR PRN #20 tab.rapdis 11/15/18 Unknown Rx Sulfamethoxazole/Trimethoprim 1 each PO BID #14 tablet 11/15/18 Unknown Rx [Bactrim DS TAB] metroNIDAZOLE [Flagyl] 500 mg PO Q8HR #21 tablet 11/15/[address] [Obdulio Boone] 75 mg PO BID #30 tablet 04/04/19 Unknown Rx Allergies Allergy/AdvReac Type Severity Reaction Status Date / Time dicyclomine [From Bentyl] Allergy Hives Verified 12/19/18 22:35 levofloxacin [From Levaquin] Allergy Rash Verified 11/15/18 12:25 morphine Allergy Rash Verified 11/15/18 12:25 ibuprofen [From Motrin] AdvReac Bleeding Verified 11/15/18 12:25 ED Review of Systems ROS: Stated complaint: RT LEG NUMB/DOC ORDERED/SEVERE PAIN Other details as noted in HPI Comment: All other systems reviewed and negative ED Past Medical Hx - Past Medical History Hx Hypertension: Yes Hx Congestive Heart Failure: No Hx Diabetes: No Hx Sickle Cell Disease: Yes (TRAIT) Hx Arthritis: Yes (2011 RA) Hx Asthma: Yes (last since child [place], reports hx of bronchitis) Hx COPD: No Additional medical history: crohns. esophageal Ca-tumor removed-05/2019 - Surgical History Additional Surgical History: tubal ligation in September 2014, tonsillectomy and adenoidectomy - Social History Smoking Status: Never Smoker Substance Use Type: None - Medications Home Medications: Home Medications Medication Instructions Recorded Confirmed Last Taken Type ALBUTEROL Inhaler (OR & NICU) 2 puff IH QID PRN #1 inhalation 03/02/18 03/13/18 03/12/18 Rx [ProAir HFA Inhaler] Promethazine [Phenergan] 25 mg PO Q6HR PRN #20 tab 03/02/18 03/13/18 03/13/18 Rx Acetaminophen [Tylenol Arthritis] 650 mg PO Q6HR PRN #30 tablet.er 04/26/18 Unknown Rx Azithromycin [Zithromax Tri-Aguilar] 500 mg PO QDAY #5 tablet 04/26/18 Unknown Rx metroNIDAZOLE [Flagyl] 500 mg PO Q8HR #15 tablet 04/26/18 Unknown Rx Fluticasone [Flonase] 1 spray NS QDAY #1 bottle 06/22/18 Unknown Rx Pseudoephedrine ER [Sudafed 12 Hr] 120 mg PO BID #10 tablet.er 06/22/18 Unknown Rx oxyCODONE /ACETAMINOPHEN [Percocet 1 tab PO Q6H PRN #10 tablet 06/22/18 Unknown Rx 5/325 mg] Acetaminophen [Acetaminophen TAB] 650 mg PO Q6HR PRN #20 tablet 07/09/18 Unknown Rx Dicyclomine [Bentyl] 10 mg PO QID PRN #15 capsule 07/09/18 Unknown Rx Metoclopramide [Reglan TAB] 10 mg PO QID PRN #30 tablet 07/09/18 Unknown Rx Potassium Chloride [Klor-Con] 20 meq PO QDAY #7 packet 07/09/18 Unknown Rx Promethazine [Phenergan SUPPOS] 50 mg LA Q6H PRN #20 supp.rect 07/09/18 Unknown Rx Acetaminophen [Tylenol Extra 500 mg PO QID #30 tablet 07/28/18 Unknown Rx Strength] Ondansetron [Zofran Odt] 4 mg PO Q8HR PRN #14 tab.rapdis 07/28/18 Unknown Rx Prednisone [predniSONE 10 mg 10 mg PO .TAPER #1 tab.ds.pk 07/28/18 Unknown Rx (6-Day Pack, 21 Tabs)] Acetaminophen/Codeine [Tylenol 1 tab PO Q6H PRN #12 tab 11/15/18 Unknown Rx /Codeine # 3 tab] Ondansetron [Zofran Odt] 4 mg PO Q8HR PRN #20 tab.rapdis 11/15/18 Unknown Rx Sulfamethoxazole/Trimethoprim 1 each PO BID #14 tablet 11/15/18 Unknown Rx [Bactrim DS TAB] metroNIDAZOLE [Flagyl] 500 mg PO Q8HR #21 tablet 11/15/[address] [Voltaren Dr] 75 mg PO BID #30 tablet 04/04/19 Unknown Rx ED Physical Exam - General Limitations: No Limitations General appearance: alert, in no apparent distress - Head Head exam: Present: atraumatic, normocephalic - Eye Eye exam: Present: normal appearance - ENT ENT exam: Present: mucous membranes moist - Neck Neck exam: Present: normal inspection - Respiratory Respiratory exam: Present: normal lung sounds bilaterally. Absent: respiratory distress - Cardiovascular Cardiovascular Exam: Present: regular rate, normal rhythm. Absent: systolic murmur, diastolic murmur, rubs, gallop - GI/Abdominal GI/Abdominal exam: Present: soft, normal bowel sounds - Extremities Exam Extremities exam: Present: normal inspection - Back Exam Back exam: Present: normal inspection, full ROM. Absent: tenderness, CVA tenderness (R), CVA tenderness (L) - Neurological Exam Neurological exam: Present: alert, oriented X3 - Psychiatric Psychiatric exam: Present: normal affect, normal mood - Skin Skin exam: Present: warm, dry, intact, normal color. Absent: rash ED Course Vital Signs 04/04/19 13:21 Temperature 98.8 F Pulse Rate 105 H Respiratory 18 Rate Blood Pressure 128/83 O2 Sat by Pulse 100 Oximetry ED Medical Decision Making - Medical Decision Making 29-year-old female presents to ED with acute on chronic pain secondary to the lumbar radiculopathy with right sciatica ED course: Patient received 8 mg of Decadron in ED. Patient is followed by neurosurgeon.*Discussed with patient to follow back up with her neurosurgeon. Charo POST ANESTHESIA NURSE aware 56 tablets of 10 mg of Percocet on March 12 and another prescription for 56 tablets of Percocet on March 26, I would not be prescribing any narcotic medication to the patient and I discussed this with the patient. Patient is to go home and continue taking the medication Vital signs are normal patient is in no acute distress Discussed with patient follow-up with primary care physician. Discussed the patient and take medications as prescribed. Patient has no neurological deficit. Patient is alert and oriented 3 and understands all instructions given. Discussed drowsiness effect of Flexeril makes her drowsy and not to operate machinery while taking flexeril Critical care attestation.: If time is entered above; I have spent that time in minutes in the direct care of this critically ill patient, excluding procedure time. ED Disposition Clinical Impression: Lumbar pain with radiation down right leg, Bulging of intervertebral disc, Lumbar radiculopathy Disposition: TO HOME OR SELFCARE Is pt being admited?: No Does the pt Need Aspirin: No Condition: Stable Instructions: Lumbar Radiculopathy (ED), Sciatica (ED) Additional Instructions: Make sure to follow up with the primary care physician as discussed. Take all your medications as you've been prescribed. If you have any worsening symptoms or develop new symptoms please return to ED immediately. Prescriptions: Brian Boone [Obdulio Boone] 75 mg PO BID #30 tablet Referrals: PRIMARY CAREMD [Primary Care Provider] - 3-5 Days REUBEN LONG MD [Staff Physician] - 3-5 Days JORDAN CLAROS MD [Staff Physician] - 3-5 Days Forms: Work/School Release Form Time of Disposition: 15:49
[2019-04-04] MEDS ORDERED: dexAMETHasone 4 MG/ML VIAL IM ONE (16:44)
== END 2019-04-04 16:50 | disposition home or self-care (01) ==
LOC: ED 13:01
DX: M51.86 Other intervertebral disc disorders, lumbar region (principal); M54.16 Radiculopathy, lumbar region; I10 Essential (primary) hypertension; M19.90 Unspecified osteoarthritis, unspecified site; J45.909 Unspecified asthma, uncomplicated
CPT/HCPCS: 36415; 81001; 84703; 96372; 99283; J1100

== ENCOUNTER 2020-01-28 01:24 | Emergency (ER) | payer SELFPAY ==
[2020-01-28 02:11] LABS: Basophils # (Auto) 0.1 K/mm3 (0.0-0.1); Basophils % (Auto) 0.7 % (0.0-1.8); Eosinophils # (Auto) 0.3 K/mm3 (0.0-0.4); Eosinophils % (Auto) 3.8 % (0.0-4.3); Hematocrit 33.2 % (30.3-42.9); Hemoglobin 10.9 gm/dl (10.1-14.3); Lymphocytes # (Auto) 3.3 K/mm3 (1.2-5.4); Lymphocytes % (Auto) 36.7 % (13.4-35.0); Mean Corpuscular HGB Conc 33 % (30-34); Mean Corpuscular Volume 91 fl (79-97); Monocytes # (Auto) 0.7 K/mm3 (0.0-0.8); Monocytes % (Auto) 7.6 % (0.0-7.3); Platelet Count 189 K/mm3 (140-440); Red Blood Count 3.65 M/mm3 (3.65-5.03); Red Cell Distribution Width 14.2 % (13.2-15.2)
[2020-01-28 02:57] LABS: Blood Urea Nitrogen 15 mg/dL (7-17); Calcium 8.9 mg/dL (8.4-10.2); Hemolysis Index 6
[2020-01-28 03:07] LABS: BUN/Creatinine Ratio 25
--- NOTE | 2020-01-28 03:10 | XRay Report ---
CHEST 1 VIEW, 01/28/2020 1:35 AM CLINICAL INFORMATION/INDICATION: Chest pain COMPARISON: Chest radiograph, 03/02/2018 FINDINGS: SUPPORT DEVICES: None. HEART: The cardiac silhouette is normal in size. LUNGS/PLEURA: The lungs are clear of focal airspace disease or significant pleural effusion. ADDITIONAL FINDINGS: No additional acute findings. IMPRESSION: 1. No evidence of acute cardiopulmonary process. Signer Name: Rachel Bledsoe MD Signed: 01/28/2020 3:05 AM Workstation Name: [id number]
[2020-01-28 08:21] VITALS: BP 123/85
== END 2020-01-28 12:39 | disposition left against medical advice (07) ==
LOC: ED 01:24
DX: R06.02 Shortness of breath (principal); R10.9 Unspecified abdominal pain; Z53.21 Procedure and treatment not carried out due to patient leaving prior to being seen by health care provider
CPT/HCPCS: 36415; 71045; 80048; 85025; 93005